=== PATIENT | female | born 1945 | race Caucasian/White ===

== ENCOUNTER 2017-02-03 19:40 | Emergency (ER) | payer MEDICARE, MEDICAID ==
[2017-02-03 20:18] LABS: #Basophils 0.1 thou/uL (0.0-0.2); #Eosinphils 0.6 thou/uL (0.0-0.7); #Lymphocytes 1.9 thou/uL (1.20-3.40); #Monocytes 0.3 thou/uL (0.11-0.59); #Neutrophils 9.9 thou/uL (1.40-6.50); %Basophils 0.7 % (0.0-1.0); %Eosinophils 4.8 % (0.0-10.0); %Monocytes 2.3 % (0.0-10.0); Hematocrit 39.6 % (36.0-47.0); Mean Platelet Volume 7.5 fL (7.4-10.4); Red Blood Cell (RBC) Count 4.42 mill/uL (4.20-5.40); White Blood Cell (WBC) Count 12.8 thou/uL (4.8-10.8)
[2017-02-03 20:40] LABS: ALT (SGPT) 10 U/L (8-55); AST (SGOT) 14 U/L (5-34); Alkaline Phosphatase 142 U/L (40-150); Anion Gap 15 mmol/L (10-20); BUN (Urea Nitrogen) 17 mg/dL (9.8-20.1); Bilirubin, Total 0.2 mg/dL (0.2-1.2); CK (CPK) 109 U/L (29-168); Calc. Creatinine Clearance 0 mL/min (70-130); Calcium 8.9 mg/dL (7.8-10.44); Carbon Dioxide 24 mmol/L (23-31); Chloride 107 mmol/L (98-107); Estimated GFR-MDRD 55; Globulin 3.3 g/dL (2.4-3.5); Protein, Total 7.6 g/dL (6.0-8.3)
--- NOTE | 2017-02-03 20:50 | RAD ---
EXAM: ONE VIEW CHEST 02/03/17 HISTORY: 01/01/17 HISTORY: Dyspnea. FINDINGS: Redemonstration of cervical fusion hardware. Atherosclerosis of the aorta. Normal cardiac silhouette. Pulmonary vessels and hilum are normal. Costophrenic angles are clear. Hy perinflation, without consolidation or mass. No pneumothorax or osseous abnormality. IMPRESSION: 1. Atherosclerosis. 2. COPD. POS: [facility]
[2017-02-03 20:56] LABS: Troponin I 0.059 ng/mL (< 0.028)
== END 2017-02-03 21:48 | disposition home or self-care (01) ==
LOC: ERS 19:40
DX: J44.1 Chronic obstructive pulmonary disease with (acute) exacerbation (principal); I10 Essential (primary) hypertension; E78.5 Hyperlipidemia, unspecified; Z87.891 Personal history of nicotine dependence
CPT/HCPCS: 36415; 71010; 80053; 82550; 82553; 84484; 85025; 93005; 94640; 94760

== ENCOUNTER 2017-05-23 00:10 | Emergency (ER) | payer MEDICARE, MEDICAID ==
[2017-05-23 01:13] LABS: #Basophils 0.1 thou/uL (0.0-0.2); #Eosinphils 0.7 thou/uL (0.0-0.7); #Lymphocytes 1.9 thou/uL (1.20-3.40); #Monocytes 0.3 thou/uL (0.11-0.59); #Neutrophils 10.2 thou/uL (1.40-6.50); %Basophils 0.4 % (0.0-1.0); %Eosinophils 5.1 % (0.0-10.0); %Lymphocytes 14.3 % (21.0-51.0); %Monocytes 2.1 % (0.0-10.0); %Neutrophils 78.2 % (42.0-75.0); Mean Corpuscular HGB CONC 33.2 g/dL (32.0-36.0); Mean Corpuscular Hemoglobin 29.5 pg (27.0-31.0); Mean Corpuscular Volume 89.1 fl (81.0-99.0); Mean Platelet Volume 7.7 fL (7.4-10.4); Platelet Count 279 thou/uL (130-400); RBC Distribution Width 12.1 % (11.5-14.5); Red Blood Cell (RBC) Count 4.07 mill/uL (4.20-5.40)
[2017-05-23 01:24] LABS: ALT (SGPT) 8 U/L (8-55); AST (SGOT) 13 U/L (5-34); Albumin 4.3 g/dL (3.4-4.8); Alkaline Phosphatase 131 U/L (40-150); Anion Gap 14 mmol/L (10-20); BUN (Urea Nitrogen) 21 mg/dL (9.8-20.1); Bilirubin, Total 0.3 mg/dL (0.2-1.2); Calc. Creatinine Clearance 0 mL/min (70-130); Calcium 9.4 mg/dL (7.8-10.44); Carbon Dioxide 25 mmol/L (23-31); Chloride 107 mmol/L (98-107); Estimated GFR-MDRD 52; Glucose 134 mg/dL (83-110); Potassium 3.8 mmol/L (3.5-5.1); Protein, Total 7.3 g/dL (6.0-8.3); Sodium 142 mmol/L (136-145)
[2017-05-23 01:27] LABS: CKMB 2.7 ng/mL (0-6.6)
[2017-05-23] MEDS ORDERED: Albuterol Sulfate 2.5 mg/3 ml Neb ONE (03:15)
--- NOTE | 2017-05-23 09:24 | RAD ---
SINGLE VIEW OF THE CHEST: Comparison: 02-03-17 History: Shortness of breath. FINDINGS: Single view of the chest shows a normal sized cardiomediastinal silhouette. There is no evidence of c onsolidation, mass, or pleural effusion. The bones are unremarkable. IMPRESSION: No evidence of acute cardiopulmonary disease. POS: [facility]
== END 2017-05-23 04:55 | disposition home or self-care (01) ==
LOC: ERS 00:10
DX: J44.1 Chronic obstructive pulmonary disease with (acute) exacerbation (principal); I10 Essential (primary) hypertension; E78.5 Hyperlipidemia, unspecified; Z87.891 Personal history of nicotine dependence; Z79.899 Other long term (current) drug therapy
CPT/HCPCS: 36415; 71045; 80053; 82553; 84484; 85025; 93005; J7611

== ENCOUNTER 2018-04-14 13:07 | Inpatient (IN) | payer MEDICARE, MEDICAID ==
[2018-04-14 13:19] LABS: Actual Bicarbonate (HCO3a) 22.1 mEq/L (22-28); Analyzer IN Cardio ER; Base Excess (BEa) -5.6 mEq/L (-2.0 to +3.0); CO2 Tension 52.1 mmHg (35.0-45.0); Calcium, Ionized 1.17 mmol/L (1.12-1.30); Carboxyhemoglobin (COHb) 0.2 gm% (0.0-3.0); Hemoglobin (Hb) 13.6 g/dL (12.0-16.0); O2 Tension (PaO2) 136.3 mmHg (> 70.0); Potassium - ABG Lab 4.05 mmol/L (3.70-5.30)
[2018-04-14] MEDS ORDERED: Magnesium 2 GM/50 ML BAG (IN WATER) ONE (13:19)
[2018-04-14 13:20] LABS: pH, Arterial 7.25 (7.35-7.45)
[2018-04-14 13:21] LABS: ALV-art Gradient 12.475 (0-20); Puncture Site LRA
[2018-04-14] MEDS ORDERED: Albuterol Sulfate 2.5 mg/0.5 ml Neb ONE ×2 (13:28)
[2018-04-14 13:53] LABS: #Basophils 0.1 thou/uL (0.0-0.2); #Eosinphils 0.8 thou/uL (0.0-0.7); #Monocytes 0.3 thou/uL (0.11-0.59); #Neutrophils 8.4 thou/uL (1.40-6.50); %Basophils 0.4 % (0.0-1.0); %Eosinophils 6.6 % (0.0-10.0); %Lymphocytes 23.7 % (21.0-51.0); %Monocytes 2.4 % (0.0-10.0); %Neutrophils 66.9 % (42.0-75.0); Hemoglobin 13.3 g/dL (12.0-16.0); Mean Corpuscular HGB CONC 31.4 g/dL (32.0-36.0); Mean Corpuscular Hemoglobin 28.2 pg (27.0-31.0); Mean Corpuscular Volume 89.6 fL (78.0-98.0); Mean Platelet Volume 8.3 fL (7.4-10.4); Platelet Count 359 thou/uL (130-400); RBC Distribution Width 12.3 % (11.5-14.5); White Blood Cell (WBC) Count 12.6 thou/uL (4.8-10.8)
[2018-04-14 14:16] LABS: ALT (SGPT) 9 U/L (8-55); AST (SGOT) 18 U/L (5-34); Albumin 4.3 g/dL (3.4-4.8); Alkaline Phosphatase 163 U/L (40-150); Anion Gap 13 mmol/L (10-20); BUN (Urea Nitrogen) 16 mg/dL (9.8-20.1); Bilirubin, Total 0.3 mg/dL (0.2-1.2); Calc. Creatinine Clearance 0 mL/min (70-130); Calcium 9.2 mg/dL (7.8-10.44); Carbon Dioxide 27 mmol/L (23-31); Chloride 106 mmol/L (98-107); Estimated GFR-MDRD 44; Glucose 180 mg/dL (83-110); Potassium 4.4 mmol/L (3.5-5.1); Protein, Total 7.3 g/dL (6.0-8.3); Sodium 142 mmol/L (136-145)
[2018-04-14 14:25] LABS: Actual Bicarbonate (HCO3a) 20.4 mEq/L (22-28); Analyzer IN Cardio ER; Base Excess (BEa) -5.6 mEq/L (-2.0 to +3.0); Hemoglobin (Hb) 13.1 g/dL (12.0-16.0); Potassium - ABG Lab 3.62 mmol/L (3.70-5.30); pH, Arterial 7.31 (7.35-7.45)
[2018-04-14 14:26] LABS: Puncture Site RRA
--- NOTE | 2018-04-14 14:42 | RAD ---
PORTABLE CHEST: DATE: 04/14/2018. PROVIDED CLINICAL HISTORY: Dyspnea. FINDINGS: Comparison 05/23/2017. Cardiac silhouette appears unchanged. No focal consolidation, pleural fluid, or pneumothorax apparent. Cervical spinal hardware again noted. IMPRESSION: No evidence for an acute cardiopulmonary process. POS: [facility]
[2018-04-14] MEDS: Piperacillin/Tazobactam 3.375 GM in Sodium Chloride 0.9% 100 ML IVPB SCH ×2 (20:11→23:09)
[2018-04-14] MEDS: Sodium Chloride 0.9% 1,000 ML IV SCH ×2 (20:11→23:32)
--- NOTE | 2018-04-14 22:08 | HP ---
CHIEF COMPLAINT: Shortness of breath. HISTORY OF PRESENT ILLNESS: The patient is a 72-year-old female, who was brought to the emergency room by EMS after she was found to be in severe respiratory distress. She was placed on a BiPAP and gradually she improved, but emergency room physician even was thinking about intubating her at the first time when she got to the ER. She is getting admitted for further management of her problem. She denies any fever or chills. She denies any significant cough different than what she usually gets on a daily basis. She has COPD with O2 at home 2 L by nasal cannula p.r.n. as needed. She did not have any sick contact. She did not have any travels recently. PAST MEDICAL HISTORY: 1. COPD. 2. Hypertension. 3. Heart problem. She is not sure of what kind of problem she has, but we know that she had some stents placed, so coronary artery disease is the diagnosis. PAST SURGICAL HISTORY: She had carpal tunnel surgery and neck surgery. She had cardiac catheterization done with stents. SOCIAL HISTORY: She used to smoke, quit approximately 7 years ago. She denies any alcohol intake or use any illicit drugs. MEDICATIONS: Please refer to the medications list. REVIEW OF SYSTEMS: All 14 systems were reviewed and the only symptoms which mentioned in HPI are positive. The rest of them are negative. PHYSICAL EXAMINATION: VITAL SIGNS: Her blood pressure is 110/67, pulse is 116, and respiratory rate is 26. HEENT: Head is atraumatic, normocephalic. Eyes are PERRLA. Sclerae are nonicteric. Oral mucosa is somewhat dry. LUNGS: Emphysematous. No wheezing or rales. HEART: S1 and S2, normal. Tachycardic. No S3. No S4. ABDOMEN: Soft, nontender, and nondistended. EXTREMITIES: No clubbing, cyanosis, or edema. Her pulses are somewhat diminished on both tibialis posterior and dorsalis pedis arteries similar bilaterally. NEUROLOGICAL: She is alert and oriented x4. There are no any motor or sensory deficits. Cranial nerves are intact. LABORATORY DATA: Labs showed white count of 12.6, hemoglobin of 13.3, hematocrit 42.2, and platelet count 359,000. ABGs showed a pH of 7.31, pCO2 of 42, pO2 of 78. Her electrolytes are within normal limits. Creatinine 1.2, glucose 180, alkaline phosphatase 163. Troponin 0.041. EKG showed sinus tachycardia. No specific abnormalities. Chest x-ray did not show any infiltrates. This was personally reviewed by me. IMPRESSION: 1. Acute exacerbation of chronic obstructive pulmonary disease with hypoxemia. 2. Hypertension. 3. Hyperlipidemia. 4. Renal insufficiency, not sure whether this is just prerenal. PLAN: For admission to the intensive care unit. Activity, bedrest and bathroom privileges. Condition is guarded. IV normal saline 100 mL/h. Solu-Medrol 40 mg IV push every 6 hours. Albuterol and Atrovent, DuoNebs q.4 hours, levofloxacin 500 mg IV piggyback every 24 hours. She received first dose in the emergency room. She will stay on Zosyn to cover for Pseudomonas IV piggyback every 6 hours as needed. We will continue BiPAP for now. We will check her ABGs later and we will have director speech and hearing on the case. Job ID: [id number]
[2018-04-15 02:13] VITALS: BMI 26.5
[2018-04-15 05:06] LABS: #Basophils 0.1 thou/uL (0.0-0.2); #Lymphocytes 0.7 thou/uL (1.20-3.40); %Basophils 1.2 % (0.0-1.0); %Lymphocytes 10.5 % (21.0-51.0); %Monocytes 0.6 % (0.0-10.0); %Neutrophils 87.6 % (42.0-75.0); Hemoglobin 11.3 g/dL (12.0-16.0); Mean Corpuscular HGB CONC 32.2 g/dL (32.0-36.0); Mean Corpuscular Hemoglobin 28.2 pg (27.0-31.0); Mean Corpuscular Volume 87.6 fL (78.0-98.0); Mean Platelet Volume 8.7 fL (7.4-10.4); Platelet Count 265 thou/uL (130-400); RBC Distribution Width 12.1 % (11.5-14.5); Red Blood Cell (RBC) Count 3.98 mill/uL (4.20-5.40); White Blood Cell (WBC) Count 6.9 thou/uL (4.8-10.8)
[2018-04-15] MEDS: Piperacillin/Tazobactam 3.375 GM in Sodium Chloride 0.9% 100 ML IVPB SCH (05:21)
[2018-04-15 05:29] LABS: Anion Gap 14 mmol/L (10-20); BUN (Urea Nitrogen) 24 mg/dL (9.8-20.1); Calc. Creatinine Clearance 38 mL/min (70-130); Calcium 8.6 mg/dL (7.8-10.44); Carbon Dioxide 22 mmol/L (23-31); Chloride 107 mmol/L (98-107); Estimated GFR-MDRD 36; Glucose 248 mg/dL (83-110); Potassium 3.6 mmol/L (3.5-5.1); Sodium 139 mmol/L (136-145)
[2018-04-15] MEDS: Enoxaparin Sodium 40 MG/0.4 ML SYRINGE SC SCH (08:34)
[2018-04-15] MEDS: Sodium Chloride 0.9% 1,000 ML IV SCH ×3 (08:35→17:51)
--- NOTE | 2018-04-15 10:07 | PDOC.PN ---
- Subjective Encounter Start Date: 04/15/18 Encounter Start Time: 10:05 Subjective: resp distress ressolved, breathing easy - Objective Resuscitation Status - Order Detail: 04/14/18 15:47 Resuscitation Status Routine Resuscitation Status: FULL: Full Resuscitation MAR Reviewed: Yes Vital Signs & Weight: Vital Signs (12 hours) Temp Pulse Resp BP Pulse Ox 04/15/18 07:35 86 16 94 L 04/15/18 04:00 99.6 F 97 18 106/61 93 L 04/15/18 02:17 94 16 98 04/15/18 00:00 98.4 F 104 H 20 109/66 97 04/14/18 22:19 100 20 98 Weight Weight 149 lb 14.629 oz I&O: 04/14/18 04/15/18 04/16/18 06:59 06:59 06:59 Intake Total 1744 Balance 1744 Result Diagrams: 04/15/18 04:01 04/15/18 04:01 Additional Labs: Accuchecks 04/14/18 13:19 POC Glucose 178 H Phys Exam - Physical Examination Neck: no JVD no wheezes, scant post rhonchi, adequate BS Cardiovascular: RRR, no significant murmur Gastrointestinal: soft, positive bowel sounds Musculoskeletal: no edema Dx/Plan (1) Acute respiratory failure with hypoxia and hypercapnia Code(s): J96.01 - ACUTE RESPIRATORY FAILURE WITH HYPOXIA; J96.02 - ACUTE RESPIRATORY FAILURE WITH HYPERCAPNIA Status: Resolved (2) COPD exacerbation Code(s): J44.1 - CHRONIC OBSTRUCTIVE PULMONARY DISEASE W (ACUTE) EXACERBATION Status: Acute (3) CKD (chronic kidney disease) stage 3, GFR 30-59 ml/min Status: Chronic (4) HTN (hypertension) Code(s): I10 - ESSENTIAL (PRIMARY) HYPERTENSION Status: Chronic Qualifiers: Hypertension type: essential hypertension Qualified Code(s): I10 - Essential (primary) hypertension - Plan cont nebs, deescalate steroids, antibx -: selected home meds * .
[2018-04-15] MEDS ORDERED: Acetaminophen 325 MG TAB PO PRN (13:39)
[2018-04-15] MEDS: Budesonide 0.5 MG/2 ML NEB NEB SCH (18:54)
[2018-04-15] MEDS: Mometasone/Formoterol 120 PUFF INHALER INH SCH (18:55)
[2018-04-15] MEDS ORDERED: guaiFENesin ER 600 MG TAB PO PRN (21:00)
[2018-04-16 04:55] LABS: #Monocytes 0.3 thou/uL (0.11-0.59); #Neutrophils 16.2 thou/uL (1.40-6.50); %Basophils 0.2 % (0.0-1.0); %Lymphocytes 5.6 % (21.0-51.0); %Monocytes 1.8 % (0.0-10.0); %Neutrophils 92.3 % (42.0-75.0); Hemoglobin 10.7 g/dL (12.0-16.0); Mean Corpuscular HGB CONC 32.7 g/dL (32.0-36.0); Mean Corpuscular Hemoglobin 28.8 pg (27.0-31.0); Mean Corpuscular Volume 88.1 fL (78.0-98.0); Mean Platelet Volume 8.7 fL (7.4-10.4); Platelet Count 298 thou/uL (130-400); RBC Distribution Width 12.7 % (11.5-14.5); Red Blood Cell (RBC) Count 3.73 mill/uL (4.20-5.40); White Blood Cell (WBC) Count 17.6 thou/uL (4.8-10.8)
[2018-04-16 05:06] LABS: Anion Gap 9 mmol/L (10-20); BUN (Urea Nitrogen) 23 mg/dL (9.8-20.1); Calc. Creatinine Clearance 56 mL/min (70-130); Calcium 8.3 mg/dL (7.8-10.44); Carbon Dioxide 24 mmol/L (23-31); Chloride 114 mmol/L (98-107); Estimated GFR-MDRD 57; Glucose 196 mg/dL (83-110); Potassium 3.9 mmol/L (3.5-5.1); Sodium 143 mmol/L (136-145)
[2018-04-16] MEDS: Sodium Chloride 0.9% 1,000 ML IV SCH (05:35)
[2018-04-16] MEDS: Mometasone/Formoterol 120 PUFF INHALER INH SCH (07:25)
[2018-04-16] MEDS: Budesonide 0.5 MG/2 ML NEB NEB SCH (07:25)
[2018-04-16 07:41] VITALS: BP 141/62; TEMP 97.6
[2018-04-16] MEDS: Enoxaparin Sodium 40 MG/0.4 ML SYRINGE SC SCH (07:46)
[2018-04-16] MEDS ORDERED: Azithromycin 250 MG TAB PO SCH (09:00)
[2018-04-16] MEDS ORDERED: Potassium Chloride 10 MEQ TAB PO SCH (09:00)
[2018-04-16] MEDS ORDERED: Spiriva 18 MCG CAP (Box of 5 Caps) INH SCH (09:00)
[2018-04-16] MEDS ORDERED: Roflumilast [Daliresp] 500 MCG PO SCH (09:00)
[2018-04-16] MEDS ORDERED: Atorvastatin Calcium 40 MG TAB PO SCH (09:00)
[2018-04-16] MEDS ORDERED: Hydrochlorothiazide 25 MG TAB PO SCH (09:00)
--- NOTE | 2018-04-16 10:45 | DIS ---
DATE OF ADMISSION: 04/14/2018 DATE OF DISCHARGE: 04/16/2018 TRANSFER OF CARE PRIMARY CARE PROVIDER: Dr. Trista Martinez. FINAL DIAGNOSES: 1. Acute respiratory failure with hypoxia. 2. Chronic obstructive pulmonary disease exacerbation. 3. Hypertension. 4. Coronary artery disease. 5. Chronic kidney disease, stage 3. DISCHARGE MEDICINES: Usual medicines, plus: 1. Medrol Dosepak start today. 2. Pulmicort 0.5 neb b.i.d. 3. Symbicort two puffs b.i.d. 4. Potassium chloride 10 mEq a day. 5. Daliresp 500 mcg p.o. daily. 6. Spiriva HandiHaler one puff daily. 7. Albuterol sulfate two puffs q.4 hours p.r.n. shortness of breath. 8. Aspirin 81 mg a day. 9. Atorvastatin 80 mg a day. 10. Metoprolol 25 mg a day. 11. Hydrochlorothiazide 25 mg a day. 12. DuoNeb 3 mL q.i.d. ALLERGIES: CODEINE, ERYTHROMYCIN, AND TRAMADOL. DIET: Heart healthy. PENDING AT THE TIME OF DISCHARGE: Nothing. CODE STATUS: Full. HOSPITAL COURSE: The patient was admitted to the hospital with acute exacerbation of COPD, acute respiratory failure with hypoxia. She was placed in IMCU, started on steroids and antibiotics. She was initially thought to need BiPAP, but she got to the unit without BiPAP. Her steroids, etc., were de-escalated rapidly. Antibiotics were stopped. Chest x-ray was unrevealing for acute process. LABORATORY DATA: Comprehensive metabolic profile showed chronic kidney disease, stage 3, otherwise unremarkable. CBC showed a mild elevation of white count 12.6, which came down to 6.9, but went up to 17.6 with IV steroids. Hemoglobin was 13.3, platelet count was 259,000. Today, she has been totally clear for 24 hours. She had no respiratory distress on room air. Feels well. She is being discharged on the aforementioned medicines. CONSULTATIONS: None. PROCEDURES: None. FOLLOWUP: She has been asked to see Dr. Weston in one week for followup. Job ID: [id number]
--- NOTE | 2018-04-18 14:14 | EKG ---
Test Reason : SOB Blood Pressure : / mmHG Vent. Rate : 129 BPM Atrial Rate : 129 BPM P-R Int : 130 ms QRS Dur : 092 ms QT Int : 322 ms P-R-T Axes : 083 077 081 degrees QTc Int : 471 ms Sinus tachycardia Low voltage QRS Confirmed by JOSE ENRIQUE COLIN DO ([id number]), slot editor JENNY FRIEDMAN ([id number]) on 04/18/2018 2:14:15 PM Referred By: Confirmed By:JOSE ENRIQUE COLIN DO
== END 2018-04-16 13:40 | disposition home or self-care (01) | DRG 189 ==
LOC: ERS 13:07 → IMCU/EMU 15:30
PROVIDERS: ADMIT Internal Medicine; ATTEND Internal Medicine
DX: J96.01 Acute respiratory failure with hypoxia (principal); J44.1 Chronic obstructive pulmonary disease with (acute) exacerbation; I12.9 Hypertensive chronic kidney disease with stage 1 through stage 4 chronic kidney disease, or unspecified chronic kidney disease; N18.3 Chronic kidney disease, stage 3 (moderate); I25.10 Atherosclerotic heart disease of native coronary artery without angina pectoris; Z79.82 Long term (current) use of aspirin; Z95.5 Presence of coronary angioplasty implant and graft; E78.5 Hyperlipidemia, unspecified
CPT/HCPCS: 36415; 36416; 71045; 80048; 80053; 82553; 82805; 84484; 85025; 87804; 93005; 94640; 94660; 96365; 96366; G8978-GP-CI; G8979-GP-CI; G8980-GP-CI; J1650; J1956; J2543; J2920; J7050; J7611; J7620; J7626

== ENCOUNTER 2018-04-17 05:10 | Inpatient (IN) | payer MEDICARE, MEDICAID ==
[2018-04-17] MEDS ORDERED: Albuterol Sulfate 2.5 mg/3 ml Neb ONE (05:33)
[2018-04-17 05:35] LABS: #Lymphocytes 2.6 thou/uL (1.20-3.40); #Monocytes 0.6 thou/uL (0.11-0.59); %Eosinophils 0.1 % (0.0-10.0); %Lymphocytes 16.2 % (21.0-51.0); %Monocytes 3.4 % (0.0-10.0); %Neutrophils 80.3 % (42.0-75.0); Mean Corpuscular HGB CONC 31.7 g/dL (32.0-36.0); Mean Corpuscular Hemoglobin 28.2 pg (27.0-31.0); Mean Corpuscular Volume 88.9 fL (78.0-98.0); Mean Platelet Volume 8.1 fL (7.4-10.4); Platelet Count 332 thou/uL (130-400); RBC Distribution Width 12.7 % (11.5-14.5); White Blood Cell (WBC) Count 16.1 thou/uL (4.8-10.8)
[2018-04-17 05:42] LABS: Actual Bicarbonate (HCO3a) 22.2 mEq/L (22-28); Analyzer IN Cardio ER; Base Excess (BEa) -3.6 mEq/L (-2.0 to +3.0); CO2 Tension 43.3 mmHg (35.0-45.0); Calcium, Ionized 1.18 mmol/L (1.12-1.30); Carboxyhemoglobin (COHb) 0.3 gm% (0.0-3.0); Hemoglobin (Hb) 11.6 g/dL (12.0-16.0); Potassium - ABG Lab 3.55 mmol/L (3.70-5.30); pH, Arterial 7.33 (7.35-7.45)
[2018-04-17 05:44] LABS: ALV-art Gradient 114.375 (0-20); Puncture Site RBA
[2018-04-17 05:55] LABS: ALT (SGPT) 45 U/L (8-55); AST (SGOT) 48 U/L (5-34); Albumin 3.9 g/dL (3.4-4.8); Alkaline Phosphatase 115 U/L (40-150); Anion Gap 12 mmol/L (10-20); BUN (Urea Nitrogen) 24 mg/dL (9.8-20.1); Bilirubin, Total 0.3 mg/dL (0.2-1.2); Calc. Creatinine Clearance 0 mL/min (70-130); Calcium 7.7 mg/dL (7.8-10.44); Carbon Dioxide 22 mmol/L (23-31); Chloride 112 mmol/L (98-107); Estimated GFR-MDRD 57; Globulin 2.5 g/dL (2.4-3.5); Glucose 128 mg/dL (83-110); Potassium 3.8 mmol/L (3.5-5.1); Protein, Total 6.4 g/dL (6.0-8.3); Sodium 142 mmol/L (136-145)
[2018-04-17] MEDS ORDERED: Enoxaparin Sodium 60 MG/0.6 ML SYRINGE ONE (06:55)
--- NOTE | 2018-04-17 08:30 | CT ---
PRELIMINARY REPORT/[facility]/EMERGENTY AFTER-HOURS PROCEDURE CT Angiography Chest With Contrast EXAM DATE/TIME: 04/17/2018 6:27 AM CLINICAL HISTORY: 72 years old, female; Signs and symptoms; Dyspnea; Additional info: Additional history obtained from ems, f72 with HX of copd presents to ed via ems with C/O dyspnea associated with coughing and wheezin g. Per ems PT was 95% on ra when they arrived on scene and states PT was tachy in 130s which has now improved to 115 and 100% on 3rd duoneb TECHNIQUE: Axial computed tomographic angiography images of the chest with intravenous contrast using CT angiogr aphy protocol. MIP reconstructed images were created and reviewed. CONTRAST: 60 ml of isovue administered intravenously. COMPARISON: No relevant prior studies available. FINDINGS: Pulmonary arteries: Normal. No pulmonary emboli. Aorta: Normal. No aortic aneurysm. No aortic dissection. Lungs: There is a small amount of streaky consolidation in both posterior costophrenic angles. No oth er pulmonary infiltrate or consolidation. No pulmonary nodules or masses. There is moderate to modera tely severe emphysema. Pleural space: Normal. No pneumothorax. No pleural effusion. Heart: Normal. No cardiomegaly. No pericardial effusion. Lymph nodes: Unremarkable. No enlarged lymph nodes. Bones/joints: Unremarkable. No acute fracture. Soft tissues: Unremarkable. IMPRESSION: 1. Small amount consolidation in the costophrenic angles may represent atelectasis or pneumonia. 2. No other acute changes in the chest. No evidence of pulmonary embolus. 3. Moderate to moderately severe emphysema. Thank you for allowing us to participate in the care of your patient. Dictated and Authenticated by: Syed Perez MD 04/17/2018 7:24 AM Central Time ([place] & [place]) FINAL REPORT EMERGENT AFTER HOURS CT ANGIOGRAM THORAX WITH IV CONTRAST AND 3D RECONSTRUCTIONS: DATE: 04/17/2018. HISTORY: Dyspnea associated with coughing and wheezing. IMPRESSION: 1. No evidence of a pulmonary embolus. 2. Vascular calcifications in the coronary arteries and thoracic aorta. The thoracic spine is cristopher l in caliber without evidence of an aortic dissection. 3. Emphysematous changes within the lungs bilaterally. 4. Patchy densities in posterior aspects of each lung base probably related to atelectasis. 5. Tiny subpleural less than 3 mm nodular density left lung base. 6. Findings are in agreement with the preliminary report by [facility]. POS: [facility]
--- NOTE | 2018-04-17 08:44 | RAD ---
SINGLE VIEW OF THE CHEST: COMPARISON: 04/14/2018. HISTORY: Difficulty breathing with coughing and wheezing. FINDINGS: A single view of the chest shows a normal-size cardiomediastinal silhouette with atherosclerotic calc ifications in the aorta. There is no evidence of consolidation, mass, or pleural effusion. Hardware is seen in the cervical spine. IMPRESSION: No evidence of acute cardiopulmonary disease. POS: [facility]
[2018-04-17 08:59] LABS: Critical Call Chem Troponin I RESULT DECREASING; Troponin I 0.505 ng/mL (< 0.028)
[2018-04-17] MEDS ORDERED: Iopamidol 370 76% 50 ML VIAL FS ONE (09:48)
[2018-04-17] MEDS ORDERED: Acetaminophen 325 MG TAB PO PRN (10:32)
[2018-04-17] MEDS ORDERED: Ondansetron ODT 4 MG TAB PO PRN (10:32)
[2018-04-17] MEDS ORDERED: Ondansetron PF 4 MG/2 ML Vial IVP PRN (10:32)
[2018-04-17] MEDS ORDERED: Albuterol Sulfate 2.5 mg/3 ml Neb NEB PRN (10:32)
[2018-04-17] MEDS ORDERED: Acetaminophen 650 MG Suppository PR PRN (10:32)
[2018-04-17] MEDS ORDERED: Famotidine 20 MG TAB PO SCH (12:15)
[2018-04-17] MEDS ORDERED: guaiFENesin ER 600 MG TAB PO SCH (13:00)
--- NOTE | 2018-04-17 14:28 | HP ---
PRIMARY CARE PHYSICIAN: Dr. Weston. CHIEF COMPLAINT: Shortness of breath. HISTORY OF PRESENT ILLNESS: Ms. Lopez is a pleasant 72-year-old female, who was recently admitted here from 04/14/2018 to 04/16/2018 for acute exacerbation of COPD. She was sent home by Dr. Angel yesterday. Once getting home, she developed a coughing paroxysm and became short of breath and tachycardic. She was brought back to the Emergency Department for evaluation last evening. There, she was found to be 95% on room air and had a heart rate of 130. We were subsequently called to readmit. She was accepted by the financial officer and held overnight and is an admission for this morning. Currently, she is breathing better. Still having some audible wheezing and prolonged expiration and cough is nonproductive. She does have some rattling in her chest. She has no fevers or chills. No chest pain. No nausea, vomiting, diarrhea, or constipation. PAST MEDICAL HISTORY: Please see notes dictated 04/14/2018. PAST SURGICAL HISTORY: Please see notes dictated 04/14/2018. MEDICATIONS: Please see notes dictated 04/14/2018. ALLERGIES: PLEASE SEE NOTES DICTATED 04/14/2018. FAMILY HISTORY: Please see notes dictated 04/14/2018. SOCIAL HISTORY: Please see notes dictated 04/14/2018. REVIEW OF SYSTEMS: All systems reviewed and negative except as stated in the HPI. PHYSICAL EXAMINATION: VITAL SIGNS: Temperature on my evaluation, the patient is afebrile. Pulse 104, blood pressure 159/73, respiratory rate 20, and saturating 98% on 2 L nasal cannula, currently 100% on room air. GENERAL: She is awake. She is alert. She is oriented x3. Elderly white female, appears to be in no acute distress, but appears to be in mild respiratory discomfort. HEENT: Normocephalic and atraumatic. Pupils equal, round, and reactive to light bilaterally. Mucous membrane moist. No visible lesions. No thrush. NECK: Supple. There is no lymphadenopathy. No JVD. No thyromegaly. Normal carotid upstroke. There are no bruits. LUNGS: Clear. She has slightly prolonged expiratory phase and high-pitched end-expiratory wheezing at the bases. CARDIOVASCULAR: She is tachycardic, but regular. Normal S1 and S2. No S3 or S4. ABDOMEN: Obese. It is nontender and nondistended. No masses or organomegaly. EXTREMITIES: No cyanosis. No clubbing. With trace pedal edema. SKIN: Warm, moist, and well perfused. There are no rash or lesions. MUSCULOSKELETAL: Normal to inspection. Large joints appear normal. There is no evidence of inflammation. No palpable effusion. NEUROLOGIC: Cranial nerves 2 through 12 grossly intact. She has no focal deficits. Normal speech pattern. LABORATORY DATA: Sodium is 142, potassium 3.8, chloride 112, bicarb 22, BUN 24, creatinine 0.96, glucose 128, calcium 7.7. Liver function within normal limits. CBC showed white count of 16.1 with a slight granulocytosis, hemoglobin 11.0, hematocrit 34.6, platelet count is 332,000. CK-MB was 9.0, troponin I 0.560. BNP was 1157.6. ABG was normal. D-dimer was minimally elevated at 0.86. CT angiogram was negative for pulmonary embolus and negative for pulmonary edema. It did show emphysematous changes. ASSESSMENT AND PLAN: 1. Acute exacerbation of chronic obstructive pulmonary disease. The patient had improved, but does not worsen. We will put her back on IV steroids, antibiotics, and scheduled nebulizer treatments. We will treat her aggressively until she normalizes her inspiratory and expiratory at times, and we will discuss discharge at that point. 2. Coughing paroxysms, place the patient on Mucinex and Tessalon. 3. Hypertension, essential. Continue home medications. 4. Hyperlipidemia, on Zetia. We will continue. 5. Chronic diastolic congestive heart failure. The patient is on Lasix daily, which we will continue. She has an elevated BNP likely secondary to her lung disease. Job ID: [id number]
[2018-04-17 16:25] VITALS: BMI 28.3
[2018-04-17] MEDS ORDERED: Sodium Chloride 0.9% 10 ML ONE ×2 (20:27→23:25)
[2018-04-17] MEDS: guaiFENesin ER 600 MG TAB PO SCH (20:58)
[2018-04-17] MEDS: Famotidine 20 MG TAB PO SCH (20:58)
[2018-04-18 05:58] LABS: #Lymphocytes 0.8 thou/uL (1.20-3.40); #Monocytes 0.2 thou/uL (0.11-0.59); #Neutrophils 8.3 thou/uL (1.40-6.50); %Basophils 0.3 % (0.0-1.0); %Eosinophils 0.2 % (0.0-10.0); %Lymphocytes 8.3 % (21.0-51.0); %Monocytes 1.7 % (0.0-10.0); %Neutrophils 89.5 % (42.0-75.0); Hemoglobin 11.2 g/dL (12.0-16.0); Mean Corpuscular HGB CONC 32.1 g/dL (32.0-36.0); Mean Corpuscular Hemoglobin 28.5 pg (27.0-31.0); Mean Corpuscular Volume 88.7 fL (78.0-98.0); Mean Platelet Volume 8.5 fL (7.4-10.4); Platelet Count 293 thou/uL (130-400); RBC Distribution Width 12.8 % (11.5-14.5); Red Blood Cell (RBC) Count 3.91 mill/uL (4.20-5.40); White Blood Cell (WBC) Count 9.3 thou/uL (4.8-10.8)
[2018-04-18 06:09] LABS: Anion Gap 13 mmol/L (10-20); BUN (Urea Nitrogen) 20 mg/dL (9.8-20.1); Calc. Creatinine Clearance 57 mL/min (70-130); Calcium 8.7 mg/dL (7.8-10.44); Carbon Dioxide 24 mmol/L (23-31); Chloride 108 mmol/L (98-107); Estimated GFR-MDRD 54; Glucose 177 mg/dL (83-110); Magnesium 2.5 mg/dL (1.6-2.6); Potassium 4.5 mmol/L (3.5-5.1); Sodium 140 mmol/L (136-145)
[2018-04-18] MEDS: Enoxaparin Sodium 40 MG/0.4 ML SYRINGE SC SCH (08:47)
[2018-04-18] MEDS: guaiFENesin ER 600 MG TAB PO SCH ×2 (08:47→20:54)
[2018-04-18] MEDS: Famotidine 20 MG TAB PO SCH ×2 (08:47→20:54)
--- NOTE | 2018-04-18 13:04 | EKG ---
Test Reason : DYSPNEA Blood Pressure : / mmHG Vent. Rate : 118 BPM Atrial Rate : 118 BPM P-R Int : 130 ms QRS Dur : 096 ms QT Int : 298 ms P-R-T Axes : 082 096 262 degrees QTc Int : 417 ms Sinus tachycardia Possible Left atrial enlargement Rightward axis Nonspecific ST and T wave abnormality Abnormal ECG Confirmed by KIRA CALL ([id number]), art editor JENNY FRIEDMAN ([id number]) on 04/18/2018 1:04:05 PM Referred By: Confirmed By:KIRA CALL
--- NOTE | 2018-04-18 13:23 | PQF ---
CLINICAL DOCUMENTATION IMPROVEMENT CLARIFICATION FORM: ICD-10 Updated PLEASE DO AN ADDENDUM TO THE PROGRESS NOTE WITH ANY DOCUMENTATION UPDATES OR ADDITIONS AND CARRY THROUGH TO DC SUMMARY. THANK YOU. DATE: 04/18/18 ATTN : DR. FRAGA Please exercise your independent, professional judgment in responding to the clarification form. Clinical indicators are provided on the bottom of this form for your review Please check appropriate box(s): [ ] Acute Respiratory Failure: [ ] with Hypoxia[ ] with Hypercapnia [ ] Acute On Chronic Respiratory Failure: [ ] with Hypoxia [ ] with Hypercapnia [ ] Acute Respiratory Failure due to: (etiology) [ ] ARDS (Acute Respiratory Distress Syndrome) [ ] Chronic Respiratory Failure only [ ] with Hypoxia [ ] with Hypercapnia [ ] Hypoxia [ ] Other diagnosis [ ] Unable to determine In addition, please specify: Present on Admission (POA): [ ] Yes [ ] No [ ] Unable to determine For continuity of documentation, please document condition throughout progress notes and discharge summary. Thank You. CLINICAL INDICATORS - SIGNS / SYMPTOMS / LABS ER NOTE: "WHEEZING PRESENT, DIFFUSELY" "PT DID HAVE HOUR LONG BREATHING TREATMENT" NURSES NOTE 04/18: "PT STATES VERY SHORT OF BREATH. O2 CHECKED 89% ON RA. BREATHING LABORED/SOB. TACHYPNEIC. WHEEZING." NURSING ASSESSMENT 04/17: "RESPIRATORY ASSESSMENT: UNABLE TO LIE FLAT/SHORTNESS OF BREATH WITH EXERTION." ABG PH 7.33 ABG PO2 188 PULSE 128 RR 26 RISKS: COPD EXACERBATION RECENT ADMISSION FOR COPD EXACERBATION TREATMENT: SUPPLEMENTAL OXYGEN VIA FACE MASK IN ER ABGS METHYLPREDNISOLONE (04/17-PRESENT) IPRATROPIUM BROMIDE NEB (ER) ALBUTEROL NEBS (04/17-PRESENT) TELEMETRY MONITORING (This form is maintained as a part of the permanent medical record) 2014 [employer]. All Rights Reserved ROBERTA [email or web address] Office: [phone] [facility]ITAL[facility]
[2018-04-18] MEDS ORDERED: PROVENTIL INHALER 6.7 G (200 INHALATIONS) INH PRN (18:43)
[2018-04-19] MEDS: Budesonide 0.5 MG/2 ML NEB NEB SCH ×2 (06:23→18:36)
[2018-04-19] MEDS: Arformoterol 15 MCG/2 ML NEB NEB SCH ×2 (06:45→18:36)
[2018-04-19] MEDS: DALIRESP 500 MCG PO SCH ×2 (08:40→12:37)
[2018-04-19] MEDS ORDERED: Lisinopril 5 MG TAB PO SCH (09:00)
[2018-04-19] MEDS ORDERED: DALIRESP 500 MCG PO SCH ×2 (10:15→21:00)
[2018-04-19] MEDS: Enoxaparin Sodium 40 MG/0.4 ML SYRINGE SC SCH (10:50)
[2018-04-19] MEDS: Ezetimibe 10 MG TAB PO SCH (10:50)
[2018-04-19] MEDS: guaiFENesin ER 600 MG TAB PO SCH ×2 (10:51→20:02)
[2018-04-19] MEDS: Famotidine 20 MG TAB PO SCH ×2 (10:52→20:02)
[2018-04-19] MEDS: Furosemide 20 MG TAB PO SCH (10:52)
[2018-04-19] MEDS: Potassium Chloride 10 MEQ TAB PO SCH (10:52)
[2018-04-19 12:44] LABS: #Basophils 0.1 thou/uL (0.0-0.2); #Lymphocytes 0.7 thou/uL (1.20-3.40); #Monocytes 0.4 thou/uL (0.11-0.59); %Basophils 0.6 % (0.0-1.0); %Eosinophils 0.3 % (0.0-10.0); %Lymphocytes 5.4 % (21.0-51.0); %Monocytes 3.4 % (0.0-10.0); %Neutrophils 90.3 % (42.0-75.0); Hemoglobin 12.4 g/dL (12.0-16.0); Mean Corpuscular HGB CONC 31.3 g/dL (32.0-36.0); Mean Corpuscular Hemoglobin 27.7 pg (27.0-31.0); Mean Corpuscular Volume 88.4 fL (78.0-98.0); Mean Platelet Volume 8.4 fL (7.4-10.4); Platelet Count 416 thou/uL (130-400); RBC Distribution Width 13.2 % (11.5-14.5); Red Blood Cell (RBC) Count 4.49 mill/uL (4.20-5.40); White Blood Cell (WBC) Count 12.2 thou/uL (4.8-10.8)
[2018-04-19 13:09] LABS: Anion Gap 13 mmol/L (10-20); BUN (Urea Nitrogen) 26 mg/dL (9.8-20.1); Calc. Creatinine Clearance 46 mL/min (70-130); Calcium 8.8 mg/dL (7.8-10.44); Carbon Dioxide 25 mmol/L (23-31); Chloride 106 mmol/L (98-107); Estimated GFR-MDRD 42; Glucose 192 mg/dL (83-110); Magnesium 2.4 mg/dL (1.6-2.6); Potassium 4.4 mmol/L (3.5-5.1); Sodium 140 mmol/L (136-145)
--- NOTE | 2018-04-19 15:33 | PDOC.PN ---
- Subjective Encounter Start Date: 04/18/18 Encounter Start Time: 11:45 follow up for acute exacerbation of COPD, acute on chronic hypercapneic respiratory fialure, acut red chornic heart faile and tachycardia HR still elevated, breathing improved. cough nonproductive No f/c, no N/V/D/C, no CP. still with SANTIAGO and orthopnea All systems reviewed and neg x as above - Objective Resuscitation Status - Order Detail: 04/17/18 08:10 Resuscitation Status Routine Resuscitation Status: FULL: Full Resuscitation MAR Reviewed: Yes Vital Signs & Weight: Vital Signs (12 hours) Temp Pulse Resp BP Pulse Ox 04/19/18 14:47 80 16 04/19/18 10:40 117 H 16 04/19/18 08:00 94 L 04/19/18 07:10 98.6 F 113 H 20 164/79 H 94 L 04/19/18 07:09 110 H 24 H 164/79 H 95 04/19/18 07:03 132 H 26 H 04/19/18 07:00 150 H 26 H 205/109 H 84 L 04/19/18 06:45 103 H 16 04/19/18 06:26 94 L 04/19/18 06:23 103 H 16 Weight Weight 159 lb 12.8 oz I&O: 04/18/18 04/19/18 04/20/18 06:59 06:59 06:59 Intake Total 450 182 Output Total 1500 200 Balance -0 18 Result Diagrams: 04/19/18 12:23 04/19/18 12:23 Phys Exam - Physical Examination Constitutional: NAD HEENT: PERRLA, moist MMs, sclera anicteric, oral pharynx no lesions Neck: no nodes, no JVD, supple, full ROM Respiratory: no wheezing, no rales, no rhonchi, clear to auscultation bilateral Cardiovascular: RRR, no significant murmur, no rub Gastrointestinal: soft, non-tender, no distention, positive bowel sounds Musculoskeletal: pulses present, edema present Neurological: non-focal, normal sensation, moves all 4 limbs Lymphatic: no nodes Psychiatric: normal affect, A&O x 3 Skin: no rash, normal turgor, cap refill <2 seconds Dx/Plan (1) CKD (chronic kidney disease) stage 3, GFR 30-59 ml/min Status: Chronic (2) COPD (chronic obstructive pulmonary disease) Status: Chronic (3) HTN (hypertension) Code(s): I10 - ESSENTIAL (PRIMARY) HYPERTENSION Status: Chronic Qualifiers: Hypertension type: essential hypertension Qualified Code(s): I10 - Essential (primary) hypertension (4) Acute respiratory failure with hypoxia and hypercapnia Code(s): J96.01 - ACUTE RESPIRATORY FAILURE WITH HYPOXIA; J96.02 - ACUTE RESPIRATORY FAILURE WITH HYPERCAPNIA Status: Acute Comment: nebs, steroids, mucinex, wean O2 (5) COPD exacerbation Code(s): J44.1 - CHRONIC OBSTRUCTIVE PULMONARY DISEASE W (ACUTE) EXACERBATION Status: Acute - Plan cont current plan of care, plan discussed w/ family, continue antibiotics, respiratory therapy * .
--- NOTE | 2018-04-19 15:41 | PDOC.PN ---
- Subjective Encounter Start Date: 04/19/18 Encounter Start Time: 11:30 ollow up for acute exacerbation of COPD, acute on chronic hypercapneic respiratory failure, acute on chronic heart failore and tachycardia HR still elevated, breathing improved. cough nonproductive. Family requesting Dr Daniels be consulted No f/c, no N/V/D/C, no CP. still with SANTIAGO and orthopnea All systems reviewed and neg x as above - Objective Resuscitation Status - Order Detail: 04/17/18 08:10 Resuscitation Status Routine Resuscitation Status: FULL: Full Resuscitation MAR Reviewed: Yes Vital Signs & Weight: Vital Signs (12 hours) Temp Pulse Resp BP Pulse Ox 04/19/18 14:47 80 16 04/19/18 10:40 117 H 16 04/19/18 08:00 94 L 04/19/18 07:10 98.6 F 113 H 20 164/79 H 94 L 04/19/18 07:09 110 H 24 H 164/79 H 95 04/19/18 07:03 132 H 26 H 04/19/18 07:00 150 H 26 H 205/109 H 84 L 04/19/18 06:45 103 H 16 04/19/18 06:26 94 L 04/19/18 06:23 103 H 16 Weight Weight 159 lb 12.8 oz I&O: 04/18/18 04/19/18 04/20/18 06:59 06:59 06:59 Intake Total 450 182 Output Total 1500 200 Balance -0 18 Result Diagrams: 04/19/18 12:23 04/19/18 12:23 Phys Exam - Physical Examination Constitutional: NAD HEENT: PERRLA, moist MMs, sclera anicteric, oral pharynx no lesions Neck: no nodes, no JVD, supple, full ROM Respiratory: no wheezing, no rales, no rhonchi, clear to auscultation bilateral Cardiovascular: RRR, no significant murmur, no rub Gastrointestinal: soft, non-tender, no distention, positive bowel sounds Musculoskeletal: edema present Neurological: non-focal, normal sensation, moves all 4 limbs Lymphatic: no nodes Psychiatric: normal affect, A&O x 3 Skin: no rash, normal turgor, cap refill <2 seconds Dx/Plan (1) CKD (chronic kidney disease) stage 3, GFR 30-59 ml/min Status: Chronic (2) COPD (chronic obstructive pulmonary disease) Status: Chronic Qualifiers: COPD type: unspecified COPD Qualified Code(s): J44.9 - Chronic obstructive pulmonary disease, unspecified (3) HTN (hypertension) Code(s): I10 - ESSENTIAL (PRIMARY) HYPERTENSION Status: Chronic Qualifiers: Hypertension type: essential hypertension Qualified Code(s): I10 - Essential (primary) hypertension (4) Acute respiratory failure with hypoxia and hypercapnia Code(s): J96.01 - ACUTE RESPIRATORY FAILURE WITH HYPOXIA; J96.02 - ACUTE RESPIRATORY FAILURE WITH HYPERCAPNIA Status: Acute Comment: nebs, steroids, mucinex, wean O2 (5) COPD exacerbation Code(s): J44.1 - CHRONIC OBSTRUCTIVE PULMONARY DISEASE W (ACUTE) EXACERBATION Status: Acute - Plan cont current plan of care, plan discussed w/ family, PT/OT, respiratory therapy * .
[2018-04-19] MEDS: Atorvastatin Calcium 40 MG TAB PO SCH (20:01)
--- NOTE | 2018-04-20 04:54 | CON ---
DATE OF CONSULTATION: HISTORY OF PRESENT ILLNESS: The patient is a 72-year-old woman, who presents with increasing dyspnea. The patient has a previous history of cardiomyopathy, she underwent a cardiac catheterization in 2000, which revealed moderately decreased left ventricular systolic function with mild CAD, the patient has been on medical therapy. The patient also has severe COPD. The patient most recently presented with the COPD exacerbation. She had stopped taking many of her medications, The patient developed increasing dyspnea and was hospitalized overnight and released. The patient presents once again with increasing dyspnea. She denied having any chest discomfort. The patient was noted to have an elevated troponin level and admitted for further evaluation. PAST MEDICAL HISTORY: 1. Coronary artery disease. 2. Cardiomyopathy. 3. Hypertension. 4. Dyslipidemia. PAST SURGICAL HISTORY: Carpal tunnel surgery and neck surgery. SOCIAL HISTORY: Former smoker. MEDICATIONS: See nursing list. REVIEW OF SYSTEMS: Noticeable for increasing cough. PHYSICAL EXAMINATION: GENERAL: This is an elderly woman, in mild distress. VITAL SIGNS: Blood pressure 160/80. NECK: Showed no jugular venous distention. LUNGS: Have decreased breath sounds, bilateral. HEART: Regular rate and rhythm. Normal S1 and S2. No murmurs. ABDOMEN: Nondistended. EXTREMITIES: Showed trace edema. VASCULAR: Radial pulses are 2+. LABORATORY DATA: White blood cell count is 9.3, hemoglobin 11.2, hematocrit 34.7, and platelets are 293. Sodium 140, potassium 4.5, chloride 108, bicarbonate 24 , BUN 20, creatinine is 1.0. Troponin was 0.5. EKG revealed her to have sinus tachycardia with a nonspecific ST-T wave abnormality. Chest x-ray revealed normal heart size with clear lung marie. IMPRESSION: 1. Chronic obstructive pulmonary disease exacerbation. 2. Elevated troponin level probably secondary to demand ischemia. 3. Hypertension, poorly controlled. 4. History of coronary artery disease. 5. History of cardiomyopathy. 6. Dyslipidemia. 7. History of noncompliance. This patient presented with chronic obstructive pulmonary disease exacerbation. She was noted to have an elevated troponin level. The patient is on a beta- donny therapy. We would recommend trying to slowly decrease the dose of this medication since she has severe chronic obstructive pulmonary disease. We will also check the patient's echocardiogram. The patient will be continued on aspirin and Lipitor. Further recommendation will follow. Job ID: [id number] [facility]
[2018-04-20 05:01] LABS: #Lymphocytes 1.2 thou/uL (1.20-3.40); #Monocytes 0.4 thou/uL (0.11-0.59); #Neutrophils 13.4 thou/uL (1.40-6.50); %Basophils 0.1 % (0.0-1.0); %Eosinophils 0.3 % (0.0-10.0); %Lymphocytes 7.6 % (21.0-51.0); %Monocytes 2.9 % (0.0-10.0); Hemoglobin 13.3 g/dL (12.0-16.0); Mean Corpuscular HGB CONC 31.2 g/dL (32.0-36.0); Mean Corpuscular Hemoglobin 27.8 pg (27.0-31.0); Mean Corpuscular Volume 89.2 fL (78.0-98.0); Platelet Count 501 thou/uL (130-400); RBC Distribution Width 13.1 % (11.5-14.5); Red Blood Cell (RBC) Count 4.78 mill/uL (4.20-5.40); White Blood Cell (WBC) Count 15.1 thou/uL (4.8-10.8)
[2018-04-20 05:18] LABS: Anion Gap 13 mmol/L (10-20); BUN (Urea Nitrogen) 29 mg/dL (9.8-20.1); Calc. Creatinine Clearance 52 mL/min (70-130); Calcium 8.5 mg/dL (7.8-10.44); Carbon Dioxide 27 mmol/L (23-31); Chloride 104 mmol/L (98-107); Estimated GFR-MDRD 49; Glucose 152 mg/dL (83-110); Magnesium 2.3 mg/dL (1.6-2.6); Potassium 4.1 mmol/L (3.5-5.1); Sodium 140 mmol/L (136-145)
[2018-04-20] MEDS: Budesonide 0.5 MG/2 ML NEB NEB SCH ×2 (07:50→18:42)
[2018-04-20] MEDS: Arformoterol 15 MCG/2 ML NEB NEB SCH ×2 (08:03→18:41)
[2018-04-20] MEDS: Ezetimibe 10 MG TAB PO SCH (08:42)
[2018-04-20] MEDS: Enoxaparin Sodium 40 MG/0.4 ML SYRINGE SC SCH (08:42)
[2018-04-20] MEDS: Furosemide 20 MG TAB PO SCH (08:43)
[2018-04-20] MEDS: guaiFENesin ER 600 MG TAB PO SCH ×2 (08:43→20:42)
[2018-04-20] MEDS: Famotidine 20 MG TAB PO SCH ×2 (08:43→20:41)
[2018-04-20] MEDS: Losartan 25 MG TAB PO SCH (08:43)
[2018-04-20] MEDS: Potassium Chloride 10 MEQ TAB PO SCH (08:43)
[2018-04-20] MEDS: DALIRESP 500 MCG PO SCH (08:44)
--- NOTE | 2018-04-20 13:28 | EKG ---
Test Reason : SOB Blood Pressure : / mmHG Vent. Rate : 115 BPM Atrial Rate : 115 BPM P-R Int : 132 ms QRS Dur : 090 ms QT Int : 348 ms P-R-T Axes : 082 089 212 degrees QTc Int : 481 ms Poor data quality, interpretation may be adversely affected Sinus tachycardia Possible Left atrial enlargement Nonspecific ST and T wave abnormality Abnormal ECG Confirmed by BEE BRIGGS DO ([id number]), newspaper editor managing KASSY LOPEZ ([id number]) on 04/20/2018 1:27:49 PM Referred By: Confirmed By:BEE BRIGGS DO
--- NOTE | 2018-04-20 14:49 | PDOC.PN ---
- Subjective Encounter Start Date: 04/20/18 Encounter Start Time: 11:30 follow up for acute exacerbation of COPD, acute on chronic hypercapneic respiratory failure, acute on chronic suspecrted diastolic heart failure and tachycardia HR still elevated, breathing improved. cough nonproductive. Family requesting Dr Daniels be consulted No f/c, no N/V/D/C, no CP. still with SANTIAGO and orthopnea All systems reviewed and neg x as above - Objective Resuscitation Status - Order Detail: 04/17/18 08:10 Resuscitation Status Routine Resuscitation Status: FULL: Full Resuscitation MAR Reviewed: Yes Vital Signs & Weight: Vital Signs (12 hours) Temp Pulse Resp BP Pulse Ox 04/20/18 14:22 114 H 18 04/20/18 12:21 98.7 F 97 18 133/60 98 04/20/18 10:57 106 H 16 04/20/18 08:40 99.1 F 108 H 18 127/60 99 04/20/18 08:03 99 18 04/20/18 07:52 95 04/20/18 07:50 99 18 04/20/18 04:00 98.3 F 89 16 122/57 L 96 Weight Weight 159 lb 8 oz I&O: 04/19/18 04/20/18 04/21/18 06:59 06:59 06:59 Intake Total 182 1560 Output Total 200 1999 Balance -18 -440 Result Diagrams: 04/20/18 04:35 04/20/18 04:35 Phys Exam - Physical Examination Constitutional: NAD HEENT: PERRLA, moist MMs, sclera anicteric, oral pharynx no lesions Neck: no nodes, no JVD, supple, full ROM Respiratory: no wheezing, no rales, no rhonchi, clear to auscultation bilateral Cardiovascular: RRR, no significant murmur, no rub Gastrointestinal: soft, non-tender, no distention, positive bowel sounds Musculoskeletal: edema present Neurological: non-focal, normal sensation, moves all 4 limbs Lymphatic: no nodes Psychiatric: normal affect, A&O x 3 Dx/Plan (1) CKD (chronic kidney disease) stage 3, GFR 30-59 ml/min Status: Chronic (2) COPD (chronic obstructive pulmonary disease) Status: Chronic Qualifiers: COPD type: unspecified COPD Qualified Code(s): J44.9 - Chronic obstructive pulmonary disease, unspecified (3) HTN (hypertension) Code(s): I10 - ESSENTIAL (PRIMARY) HYPERTENSION Status: Chronic Qualifiers: Hypertension type: essential hypertension Qualified Code(s): I10 - Essential (primary) hypertension (4) Acute respiratory failure with hypoxia and hypercapnia Code(s): J96.01 - ACUTE RESPIRATORY FAILURE WITH HYPOXIA; J96.02 - ACUTE RESPIRATORY FAILURE WITH HYPERCAPNIA Status: Acute Comment: nebs, steroids, mucinex, wean O2 (5) COPD exacerbation Code(s): J44.1 - CHRONIC OBSTRUCTIVE PULMONARY DISEASE W (ACUTE) EXACERBATION Status: Acute - Plan cont current plan of care, PT/OT, social sciences lecturer, out of bed/ambulate * . echo pending, cardiology weaning [place]
[2018-04-20] MEDS: Atorvastatin Calcium 40 MG TAB PO SCH (20:42)
[2018-04-21] MEDS: Budesonide 0.5 MG/2 ML NEB NEB SCH ×2 (06:54→18:56)
[2018-04-21] MEDS: Arformoterol 15 MCG/2 ML NEB NEB SCH ×2 (07:08→18:56)
[2018-04-21] MEDS: DALIRESP 500 MCG PO SCH (09:09)
[2018-04-21] MEDS: guaiFENesin ER 600 MG TAB PO SCH ×2 (09:10→20:08)
[2018-04-21] MEDS: Furosemide 20 MG TAB PO SCH (09:10)
[2018-04-21] MEDS: Ezetimibe 10 MG TAB PO SCH (09:11)
[2018-04-21] MEDS: Enoxaparin Sodium 40 MG/0.4 ML SYRINGE SC SCH (09:11)
[2018-04-21] MEDS: Potassium Chloride 10 MEQ TAB PO SCH (09:11)
[2018-04-21] MEDS: Losartan 25 MG TAB PO SCH (09:11)
[2018-04-21] MEDS: Famotidine 20 MG TAB PO SCH ×2 (09:11→20:08)
--- NOTE | 2018-04-21 11:51 | PDOC.PN ---
- Subjective Encounter Start Date: 04/21/18 Encounter Start Time: 09:30 follow up for acute exacerbation of COPD, acute on chronic hypercapneic respiratory failure, acute on chronic suspecrted diastolic heart failure and tachycardia HR down, breathing improved. cough nonproductive. Family requesting Dr Daniels be consulted, was seen by Kristina, echo done No f/c, no N/V/D/C, no CP. still with SANTIAGO and orthopnea All systems reviewed and neg x as above - Objective Resuscitation Status - Order Detail: 04/17/18 08:10 Resuscitation Status Routine Resuscitation Status: FULL: Full Resuscitation MAR Reviewed: Yes Vital Signs & Weight: Vital Signs (12 hours) Temp Pulse Resp BP Pulse Ox 04/21/18 11:02 104 H 16 04/21/18 08:00 93 L 04/21/18 07:30 98.2 F 104 H 20 160/69 H 93 L 04/21/18 07:08 94 16 04/21/18 06:57 94 L 04/21/18 06:54 94 16 04/21/18 04:00 98.6 F 90 16 143/63 H 92 L Weight Weight 156 lb I&O: 04/20/18 04/21/18 04/22/18 06:59 06:59 06:59 Intake Total 1560 1080 Output Total 2000 1290 Balance -440 -210 Result Diagrams: 04/20/18 04:35 04/20/18 04:35 Radiology Reviewed by me: Yes Phys Exam - Physical Examination Constitutional: NAD HEENT: PERRLA, moist MMs, sclera anicteric, oral pharynx no lesions Neck: no nodes, no JVD, supple, full ROM insp and exp wheezes, poor air movement, sli prolonged expiration Cardiovascular: RRR, no significant murmur, no rub Gastrointestinal: soft, non-tender, no distention, positive bowel sounds Musculoskeletal: edema present Neurological: non-focal, normal sensation, moves all 4 limbs Lymphatic: no nodes Psychiatric: normal affect, A&O x 3 Skin: no rash, normal turgor, cap refill <2 seconds Dx/Plan (1) CKD (chronic kidney disease) stage 3, GFR 30-59 ml/min Status: Chronic Comment: stable (2) COPD (chronic obstructive pulmonary disease) Status: Chronic Qualifiers: COPD type: unspecified COPD Qualified Code(s): J44.9 - Chronic obstructive pulmonary disease, unspecified Comment: to po steroids today. conitnue nebs, may need pulm to assist (3) HTN (hypertension) Code(s): I10 - ESSENTIAL (PRIMARY) HYPERTENSION Status: Chronic Qualifiers: Hypertension type: essential hypertension Qualified Code(s): I10 - Essential (primary) hypertension (4) Acute respiratory failure with hypoxia and hypercapnia Code(s): J96.01 - ACUTE RESPIRATORY FAILURE WITH HYPOXIA; J96.02 - ACUTE RESPIRATORY FAILURE WITH HYPERCAPNIA Status: Acute Comment: nebs, steroids, mucinex, off o2 now (5) COPD exacerbation Code(s): J44.1 - CHRONIC OBSTRUCTIVE PULMONARY DISEASE W (ACUTE) EXACERBATION Status: Acute - Plan cont current plan of care, continue antibiotics, PT/OT, transition social worker, respiratory therapy, out of bed/ambulate * . echo with EF 50-55%. otherwise pretty normal
[2018-04-21] MEDS: Atorvastatin Calcium 40 MG TAB PO SCH (20:07)
[2018-04-22] MEDS: Budesonide 0.5 MG/2 ML NEB NEB SCH (07:35)
[2018-04-22] MEDS: Arformoterol 15 MCG/2 ML NEB NEB SCH (07:37)
[2018-04-22] MEDS: Losartan 25 MG TAB PO SCH (09:16)
[2018-04-22] MEDS: Potassium Chloride 10 MEQ TAB PO SCH (09:17)
[2018-04-22] MEDS: guaiFENesin ER 600 MG TAB PO SCH (09:17)
[2018-04-22] MEDS: Famotidine 20 MG TAB PO SCH (09:17)
[2018-04-22] MEDS: Ezetimibe 10 MG TAB PO SCH (09:17)
[2018-04-22] MEDS: Enoxaparin Sodium 40 MG/0.4 ML SYRINGE SC SCH (09:18)
[2018-04-22] MEDS: Furosemide 20 MG TAB PO SCH (09:18)
[2018-04-22] MEDS: DALIRESP 500 MCG PO SCH (09:19)
[2018-04-22 11:45] VITALS: BP 130/61
[2018-04-22 13:41] VITALS: TEMP 98.5
--- NOTE | 2018-04-23 02:42 | DIS ---
DATE OF ADMISSION: 04/17/2018 DATE OF DISCHARGE: 04/22/2018 DISCHARGE DIAGNOSES: 1. Acute on chronic hypoxemic hypercapnic respiratory failure. 2. Chronic obstructive pulmonary disease with acute exacerbation, resolved. 3. Demand ischemia secondary to #1 and #2. 4. Coronary artery disease, chronic and stable. 5. Chronic kidney disease, stage 3. 6. Hypertension, labile. CONSULTATIONS: Dr. Mir Acevedo with Cardiology Service. PERTINENT LAB AND X-RAY FINDINGS: Creatinine ranged between 0.96 to 1.26. Estimated GFR ranged between 42 to 57. Troponin I ranged between 0.51 to 0.56. BNP 1817, previously noted 1158 on 04/17/2018. CBC showed a white blood cell count ranged between 9.3 to 16.1, hemoglobin ranged between 11.[address] angiogram of the chest dated 04/17/2018 showed no evidence for pulmonary embolus. Emphysematous changes bilaterally. A 2D transthoracic echocardiogram dated 04/18/2018 showed ejection fraction of 50% to 55%. Mild tricuspid valve regurgitation. HOSPITAL COURSE: The patient was initially admitted to the telemetry unit after presenting with increased shortness of breath in the context of known chronic obstructive pulmonary disease. The patient was placed on IV Solu-Medrol, IV Levaquin and given bronchodilator therapy with nebulized treatments. The patient was slow to clinically improve with aggressive pulmonary supportive management; however, did improve by the time of discharge. The patient was also noted with elevated troponin I necessitating consultation with Cardiology Service who recommended general medical management as the patient's presentation, likely the underlying etiology of the elevated troponin I with acute respiratory failure. No specific acute intervention was recommended; however, the patient was placed on losartan 25 mg daily. The patient was also decreased on metoprolol dosing and continued on aspirin and Lipitor. Telemetry monitoring showed sinus mechanism without evidence of acute arrhythmia or dysrhythmia. The patient overall clinically stabilized and was maintaining O2 saturations in the mid to upper 90% range on room air. I have examined the patient at the time of discharge and discussed followup instructions. The patient verbalized understanding and in agreement. Ready for discharge on 04/22/2018. DISCHARGE MEDICATIONS: 1. ProAir HFA two puffs inhaled every 4 hours p.r.n. 2. Enteric-coated aspirin 81 mg p.o. daily. 3. Lipitor 80 mg p.o. at bedtime. 4. Pulmicort nebulized solution 0.5 mg nebulized b.i.d. 5. Zetia 5 mg p.o. daily. 6. Perforomist 20 mcg inhaled b.i.d. 7. Lasix 20 mg p.o. daily. 8. DuoNeb 3 mL nebulized t.i.d. p.r.n. 9. Potassium chloride 10 mEq p.o. daily. 10. Daliresp 500 mcg p.o. b.i.d. 11. Anoro Ellipta 62.5/25 mcg one inhalation daily. 12. Losartan 25 mg p.o. daily. 13. Toprol-XL 12.5 mg p.o. daily. 14. Prednisone 10 mg, take 2 tablets p.o. b.i.d. x2 days, followed by 2 tablets p.o. daily x2 days, followed by 1 tab p.o. daily x2 days. FOLLOWUP: The patient is to follow up with Dr. Juan Weston within 7 days of discharge. The patient will follow up with Dr. Loco Daniels with [facility] and to call his office for appointment time and date. CONDITION ON DISCHARGE: Stable. ACTIVITY: Ad areli. DIET: Heart healthy. CODE STATUS: Full. DISPOSITION: Home on 04/22/2018. Total time in preparing and coordinating discharge is 34 minutes. Job ID: [id number]
== END 2018-04-22 14:50 | disposition home or self-care (01) | DRG 190 ==
LOC: ERS 05:10 → 2NO 06:34
PROVIDERS: ADMIT Internal Medicine; ATTEND Internal Medicine
PROC: B24BZZZ Ultrasonography of Heart with Aorta (ICD-10-PCS; principal; 2018-04-20)
DX: J44.1 Chronic obstructive pulmonary disease with (acute) exacerbation (principal); J96.22 Acute and chronic respiratory failure with hypercapnia; I50.33 Acute on chronic diastolic (congestive) heart failure; J96.21 Acute and chronic respiratory failure with hypoxia; I24.8 Other forms of acute ischemic heart disease; I13.0 Hypertensive heart and chronic kidney disease with heart failure and stage 1 through stage 4 chronic kidney disease, or unspecified chronic kidney disease; I43 Cardiomyopathy in diseases classified elsewhere; N18.3 Chronic kidney disease, stage 3 (moderate); Z79.01 Long term (current) use of anticoagulants; Z79.82 Long term (current) use of aspirin; Z79.51 Long term (current) use of inhaled steroids; E78.5 Hyperlipidemia, unspecified; Z91.14 Patient's other noncompliance with medication regimen; R00.0 Tachycardia, unspecified; T49.6X5A Adverse effect of otorhinolaryngological drugs and preparations, initial encounter
CPT/HCPCS: 36415; 71045; 71275; 80048; 80053; 82553; 82805; 83735; 83880; 84484; 85025; 85379; 93005; 93306; 94640; 94644; 96372; G8978-GP-CI; G8979-GP-CI; G8980-GP-CI; G8987-GO-CI; G8988-GO-CI; G8989-GO-CI; J1650; J2920; J7611; J7620; J7626

== ENCOUNTER 2018-05-28 18:37 | Emergency (ER) | payer MEDICARE, MEDICAID ==
[2018-05-28] MEDS ORDERED: Dexamethasone 10 MG/ML VIAL ONE (19:22)
[2018-05-28 19:26] LABS: Actual Bicarbonate (HCO3a) 24.5 mEq/L (22-28); Analyzer IN Cardio ER; Base Excess (BEa) -0.2 mEq/L (-2.0 to +3.0); CO2 Tension 40.6 mmHg (35.0-45.0); Calcium, Ionized 1.16 mmol/L (1.12-1.30); Carboxyhemoglobin (COHb) 0.2 gm% (0.0-3.0); Hemoglobin (Hb) 12.4 g/dL (12.0-16.0); Potassium - ABG Lab 3.29 mmol/L (3.70-5.30)
[2018-05-28 19:40] LABS: O2 Tension (PaO2) 54.3 mmHg (> 70.0); Puncture Site RBA
[2018-05-28 20:11] LABS: #Basophils 0.1 thou/uL (0.0-0.2); #Eosinphils 0.7 thou/uL (0.0-0.7); #Lymphocytes 1.2 thou/uL (1.20-3.40); #Monocytes 0.2 thou/uL (0.11-0.59); #Neutrophils 13.8 thou/uL (1.40-6.50); %Basophils 0.3 % (0.0-1.0); %Eosinophils 4.7 % (0.0-10.0); %Lymphocytes 7.5 % (21.0-51.0); %Monocytes 1.3 % (0.0-10.0); %Neutrophils 86.2 % (42.0-75.0); Hemoglobin 12.1 g/dL (12.0-16.0); Mean Corpuscular HGB CONC 32.7 g/dL (32.0-36.0); Mean Corpuscular Hemoglobin 29.2 pg (27.0-31.0); Mean Corpuscular Volume 89.1 fL (78.0-98.0); Mean Platelet Volume 7.8 fL (7.4-10.4); Platelet Count 291 thou/uL (130-400); RBC Distribution Width 12.8 % (11.5-14.5); Red Blood Cell (RBC) Count 4.15 mill/uL (4.20-5.40); White Blood Cell (WBC) Count 16.1 thou/uL (4.8-10.8)
[2018-05-28 20:27] LABS: ALT (SGPT) 14 U/L (8-55); AST (SGOT) 20 U/L (5-34); Albumin 4.3 g/dL (3.4-4.8); Alkaline Phosphatase 166 U/L (40-150); Anion Gap 19 mmol/L (10-20); BUN (Urea Nitrogen) 15 mg/dL (9.8-20.1); Bilirubin, Total 0.3 mg/dL (0.2-1.2); Calc. Creatinine Clearance 0 mL/min (70-130); Calcium 9.3 mg/dL (7.8-10.44); Carbon Dioxide 23 mmol/L (23-31); Chloride 106 mmol/L (98-107); Estimated GFR-MDRD 53; Globulin 2.4 g/dL (2.4-3.5); Glucose 141 mg/dL (83-110); Potassium 3.7 mmol/L (3.5-5.1); Protein, Total 6.7 g/dL (6.0-8.3); Sodium 144 mmol/L (136-145)
[2018-05-28 20:49] LABS: CKMB 2.9 ng/mL (0-6.6)
--- NOTE | 2018-05-28 21:13 | RAD ---
PORTABLE UPRIGHT FRONTAL CHEST RADIOGRAPH 05/28/18 COMPARISON: 04/17/18 HISTORY: Difficulty breathing. FINDINGS: Mild stable increased linear interstitial density noted. Stable postoperative hardware within the cer vical spine. No pneumothorax, pleural fluid, lobar consolidation, or alveolar edema. IMPRESSION: Stable appearance of the chest - no acute findings. POS: H
== END 2018-05-28 21:07 | disposition home or self-care (01) ==
LOC: ERS 18:37
DX: J44.1 Chronic obstructive pulmonary disease with (acute) exacerbation (principal); R79.89 Other specified abnormal findings of blood chemistry; I10 Essential (primary) hypertension; E78.5 Hyperlipidemia, unspecified; Z79.51 Long term (current) use of inhaled steroids; Z79.899 Other long term (current) drug therapy
CPT/HCPCS: 36415; 71045; 80053; 82553; 82805; 84484; 85025; 93005; 96361; 96374; J1100

== ENCOUNTER 2018-05-31 05:26 | Outpatient (CLI) | payer MEDICARE, MEDICAID ==
[2018-05-31 12:02] LABS: #Lymphocytes 1.3 thou/uL (1.20-3.40); #Monocytes 0.4 thou/uL (0.11-0.59); #Neutrophils 9.9 thou/uL (1.40-6.50); %Basophils 0.1 % (0.0-1.0); %Eosinophils 0.2 % (0.0-10.0); %Lymphocytes 11.3 % (21.0-51.0); %Monocytes 3.7 % (0.0-10.0); %Neutrophils 84.7 % (42.0-75.0); Mean Corpuscular HGB CONC 30.9 g/dL (32.0-36.0); Mean Corpuscular Hemoglobin 27.3 pg (27.0-31.0); Mean Corpuscular Volume 88.2 fL (78.0-98.0); Mean Platelet Volume 7.9 fL (7.4-10.4); Platelet Count 337 thou/uL (130-400); RBC Distribution Width 13.1 % (11.5-14.5); Red Blood Cell (RBC) Count 4.41 mill/uL (4.20-5.40); White Blood Cell (WBC) Count 11.7 thou/uL (4.8-10.8)
[2018-05-31 12:29] LABS: ALT (SGPT) 12 U/L (8-55); AST (SGOT) 13 U/L (5-34); Albumin 4.7 g/dL (3.4-4.8); Alkaline Phosphatase 136 U/L (40-150); Anion Gap 16 mmol/L (10-20); BUN (Urea Nitrogen) 21 mg/dL (9.8-20.1); Bilirubin, Total 0.3 mg/dL (0.2-1.2); Calc. Creatinine Clearance 0 mL/min (70-130); Calcium 9.9 mg/dL (7.8-10.44); Carbon Dioxide 24 mmol/L (23-31); Chloride 106 mmol/L (98-107); Estimated GFR-MDRD 49; Globulin 2.8 g/dL (2.4-3.5); Glucose 118 mg/dL (83-110); Potassium 3.9 mmol/L (3.5-5.1); Protein, Total 7.5 g/dL (6.0-8.3); Sodium 142 mmol/L (136-145)
--- NOTE | 2018-05-31 13:34 | RAD ---
CHEST FRONTAL AND LATERAL IMAGIN05/31/2018 HISTORY: Preoperative patient. COMPARISON: 05/13/2013 FINDINGS: The heart and mediastinal contours are stable. There is cervical spine anterior diskectomy and fusio n hardware. There is no pneumothorax, pleural fluid, lobar consolidation, or alveolar edema. The ca rdiac silhouette is mildly prominent on the lateral view. The lungs appear mildly hyperinflated. IMPRESSION: No focal consolidation or alveolar edema. POS: PIPEH
== END 2018-05-31 05:27 | disposition home or self-care (01) ==
LOC: LABBT 05:26
PROVIDERS: ATTEND Internal Medicine Cardiovascular Disease
DX: Z01.818 Encounter for other preprocedural examination (principal); R94.02 Abnormal brain scan
CPT/HCPCS: 71046; 80053; 85025; 93005; 93010

== ENCOUNTER 2018-06-03 06:03 | Inpatient (IN) | payer MEDICARE, MEDICAID ==
[2018-06-03] MEDS ORDERED: Midazolam HCl 2 mg/2 ml Vial ONE (06:35)
[2018-06-03] MEDS ORDERED: Lidocaine 1% (PF) 30 ML VIAL ONE (06:35)
[2018-06-03] MEDS ORDERED: Fentanyl 100 MCG/2 ML VIAL ONE (06:35)
[2018-06-03] MEDS ORDERED: Heparin 10,000 UNITS/1 ML VIAL ONE ×2 (07:00→08:36)
[2018-06-03] MEDS ORDERED: Nitroglycerin 100MG/250ML BOT 250 ML ONE (07:30)
[2018-06-03] MEDS ORDERED: Aggrastat 12.5 MG/250 ML 250 ML ONE (07:33)
[2018-06-03] MEDS ORDERED: Clopidogrel Bisulfate 300 MG TAB ONE (07:33)
[2018-06-03] MEDS ORDERED: Aspirin Chewable 81 MG TAB ONE (07:33)
[2018-06-03] MEDS ORDERED: Nitroglycerin 0.4 MG TAB (25 Tab Bottle) SL PRN (08:51)
[2018-06-03] MEDS ORDERED: cloNIDine 0.1 MG TAB PO PRN (08:51)
[2018-06-03] MEDS ORDERED: Iopamidol 370 76% 50 ML VIAL FS ONE (09:20)
[2018-06-03] MEDS ORDERED: Iopamidol 370 76% 100 ML VIAL ONE (09:20)
[2018-06-03] MEDS ORDERED: cloNIDine 0.1 MG TAB ONE (10:40)
[2018-06-03] MEDS: Aspirin Chewable 81 MG TAB PO SCH (16:18)
[2018-06-03] MEDS: Clopidogrel Bisulfate 75 MG TAB PO SCH (16:19)
[2018-06-03] MEDS: Sodium Chloride 0.9% 1,000 ML IV SCH ×2 (16:22→16:37)
[2018-06-03 17:22] VITALS: BMI 26.9
[2018-06-03] MEDS ORDERED: Potassium Chloride 20 MEQ TAB PO SCH (19:45)
--- NOTE | 2018-06-03 20:21 | EKG ---
Test Reason : POST STENT Blood Pressure : / mmHG Vent. Rate : 085 BPM Atrial Rate : 085 BPM P-R Int : 122 ms QRS Dur : 084 ms QT Int : 374 ms P-R-T Axes : 083 081 070 degrees QTc Int : 445 ms Normal sinus rhythm Normal ECG When compared with ECG of 31-MAY-2018 11:39, (Unconfirmed) No significant change was found Confirmed by GRIS RIOJAS, . STj (4) on 06/03/2018 8:20:37 PM Referred By: ZAIN Confirmed By:DR. Conchis LANDRY MD
[2018-06-04 06:28] LABS: #Basophils 0.1 thou/uL (0.0-0.2); #Eosinphils 2.1 thou/uL (0.0-0.7); #Lymphocytes 2.6 thou/uL (1.20-3.40); #Monocytes 0.6 thou/uL (0.11-0.59); #Neutrophils 7.4 thou/uL (1.40-6.50); %Basophils 0.6 % (0.0-1.0); %Eosinophils 16.2 % (0.0-10.0); %Lymphocytes 20.4 % (21.0-51.0); %Monocytes 4.9 % (0.0-10.0); %Neutrophils 57.9 % (42.0-75.0); Mean Corpuscular Hemoglobin 28.6 pg (27.0-31.0); Mean Corpuscular Volume 89.5 fL (78.0-98.0); Mean Platelet Volume 7.8 fL (7.4-10.4); Platelet Count 241 thou/uL (130-400); RBC Distribution Width 13.4 % (11.5-14.5); Red Blood Cell (RBC) Count 3.83 mill/uL (4.20-5.40); White Blood Cell (WBC) Count 12.7 thou/uL (4.8-10.8)
[2018-06-04 06:42] LABS: Anion Gap 11 mmol/L (10-20); BUN (Urea Nitrogen) 18 mg/dL (9.8-20.1); Calc. Creatinine Clearance 65 mL/min (70-130); Calcium 8.1 mg/dL (7.8-10.44); Carbon Dioxide 23 mmol/L (23-31); Chloride 110 mmol/L (98-107); Estimated GFR-MDRD 66; Glucose 91 mg/dL (83-110); Potassium 4.2 mmol/L (3.5-5.1); Sodium 140 mmol/L (136-145)
[2018-06-04] MEDS: Clopidogrel Bisulfate 75 MG TAB PO SCH (09:48)
[2018-06-04] MEDS: Aspirin Chewable 81 MG TAB PO SCH (09:48)
[2018-06-04] MEDS ORDERED: Guaifenesin DM 100-10/5 ML UDCUP PO PRN (11:28)
[2018-06-04] MEDS ORDERED: Calcium Carbonate 500 MG ChewTAB PO PRN (11:28)
[2018-06-04] MEDS ORDERED: Senokot S 8.6-50 MG TAB PO PRN (11:28)
[2018-06-04] MEDS ORDERED: Bisacodyl 10 MG SUPP PR PRN (11:28)
[2018-06-04] MEDS ORDERED: Acetaminophen 325 MG TAB PO PRN (11:28)
[2018-06-04] MEDS ORDERED: Ondansetron ODT 4 MG TAB PO PRN (11:28)
[2018-06-04] MEDS ORDERED: Ondansetron PF 4 MG/2 ML Vial IVP PRN (11:28)
[2018-06-04] MEDS ORDERED: Communication Order-Pharmacy FS SCH (17:45)
[2018-06-04] MEDS: Arformoterol 15 MCG/2 ML NEB NEB SCH (18:15)
[2018-06-04] MEDS: Budesonide 0.5 MG/2 ML NEB NEB SCH (18:15)
[2018-06-04] MEDS: Sodium Chloride 0.9% 1,000 ML IV SCH (18:30)
[2018-06-04] MEDS: Atorvastatin Calcium 40 MG TAB PO SCH (21:09)
[2018-06-04] MEDS: Famotidine 20 MG TAB PO SCH (21:09)
--- NOTE | 2018-06-04 21:34 | EKG ---
Test Reason : Blood Pressure : / mmHG Vent. Rate : 090 BPM Atrial Rate : 090 BPM P-R Int : 116 ms QRS Dur : 082 ms QT Int : 368 ms P-R-T Axes : 063 081 062 degrees QTc Int : 450 ms Normal sinus rhythm Normal ECG When compared with ECG of 03-JUN-2018 09:53, No significant change was found Confirmed by GRIS RIOJAS, DR. Balderrama ([id number]) on 06/04/2018 9:34:16 PM Referred By: ZAIN Confirmed By:DR. Conchis LANDRY MD
--- NOTE | 2018-06-04 22:04 | PDOC.PN ---
- Subjective Encounter Start Date: 06/04/18 Encounter Start Time: 09:00 Patient seen and examined for med mngt. No CP. No new complaints. No overnight events - Objective Resuscitation Status - Order Detail: 06/04/18 11:28 Resuscitation Status Routine Resuscitation Status: FULL: Full Resuscitation MAR Reviewed: Yes Vital Signs & Weight: Vital Signs (12 hours) Temp Pulse Resp BP Pulse Ox 06/04/18 20:00 99.4 F 103 H 19 116/48 L 94 L 06/04/18 18:12 94 20 94 L 06/04/18 16:00 99.2 F 89 16 136/65 95 06/04/18 12:43 102 H 20 95 06/04/18 12:00 99.6 F 95 16 140/86 97 Weight Weight 150 lb 1 oz I&O: 06/03/18 06/04/18 06/05/18 06:59 06:59 06:59 Intake Total 1571 200 Output Total 1850 Balance -279 200 Result Diagrams: 06/04/18 05:39 06/04/18 05:39 Phys Exam - Physical Examination Constitutional: NAD Respiratory: no wheezing, no rhonchi Cardiovascular: RRR, no rub Gastrointestinal: soft, non-tender, positive bowel sounds Musculoskeletal: no edema Neurological: moves all 4 limbs Dx/Plan (1) CKD (chronic kidney disease) stage 3, GFR 30-59 ml/min Status: Chronic (2) COPD (chronic obstructive pulmonary disease) Status: Chronic Qualifiers: COPD type: unspecified COPD Qualified Code(s): J44.9 - Chronic obstructive pulmonary disease, unspecified (3) HTN (hypertension) Code(s): I10 - ESSENTIAL (PRIMARY) HYPERTENSION Status: Chronic Qualifiers: Hypertension type: essential hypertension Qualified Code(s): I10 - Essential (primary) hypertension (4) CAD (coronary artery disease) Code(s): I25.10 - ATHSCL HEART DISEASE OF [place] CORONARY ARTERY W/O ANG PCTRS Status: Chronic - Plan DVT proph w/SCDs Resume home meds including Toprol -: Cont Losartan -: AM labs -: Resume COPD meds -: Full code. DPOA - self/family Review of Systems - Review of Systems Respiratory: negative: Cough, Dry, Shortness of Breath, Hemoptysis, SOB with Excertion, Pleuritic Pain, Sputum, Wheezing Cardiovascular: negative: chest pain, palpitations, orthopnea, paroxysmal nocturnal dyspnea, edema, light headedness, other - Medications/Allergies Allergies/Adverse Reactions: Allergies Allergy/AdvReac Type Severity Reaction Status Date / Time codeine AdvReac "just made Verified 03/20/16 11:44 me sick" erythromycin base AdvReac "just mead Verified 03/20/16 11:44 [Erythromycin Base] me sick" tramadol AdvReac "just had Verified 03/20/16 11:44 to stay in bed" Medications: Current Medications Acetaminophen (Tylenol) 650 mg PO Q4H PRN PRN Reason: Headache/Fever/Mild Pain (1-3) Albuterol/Ipratropium (Duoneb) 3 ml NEB TID-RT [facility] Last Admin: 06/04/18 18:12 Dose: 3 ml Albuterol/Ipratropium (Duoneb) 3 ml NEB Q4H PRN PRN Reason: SOB &/or Wheezing Arformoterol Tartrate (Brovana) 15 mcg NEB BID-RT [facility] Last Admin: 06/04/18 18:15 Dose: 15 mcg Aspirin (Aspirin Chewable) 81 mg PO DAILY [facility] Last Admin: 06/04/18 09:48 Dose: 81 mg Atorvastatin Calcium (Lipitor) 80 mg PO HS [facility] Last Admin: 06/04/18 21:09 Dose: 80 mg Bisacodyl (Dulcolax) 10 mg [place] DAILYPRN PRN PRN Reason: Constipation Budesonide (Pulmicort Neb Solution) 0.5 mg NEB BID-RT [facility] Last Admin: 06/04/18 18:15 Dose: 0.5 mg Calcium Carbonate (Tums) 1,000 mg PO Q4H PRN PRN Reason: Heartburn or Indigestion Clonidine (Catapres) 0.1 mg PO Q2H PRN PRN Reason: SBP GREATER THAN 160 Clopidogrel Bisulfate (Plavix) 75 mg PO DAILY [facility] Last Admin: 06/04/18 09:48 Dose: 75 mg Cyclobenzaprine HCl (Flexeril) 10 mg PO DAILY [facility] Ezetimibe (Zetia) 5 mg PO DAILY [facility] Famotidine (Pepcid) 20 mg PO BID [facility] Last Admin: 06/04/18 21:09 Dose: 20 mg Guaifenesin/Dextromethorphan (Robitussin Dm) 15 ml PO Q4H PRN PRN Reason: Cough Sodium Chloride (Normal Saline 0.9%) 1,000 mls @ 100 mls/hr IV .Q10H [facility] Last Admin: 06/04/18 18:30 Dose: 1,000 mls Losartan Potassium (Cozaar) 25 mg PO DAILY [facility] Metoprolol Succinate (Toprol Xl) 50 mg PO DAILY [facility] Miscellaneous Information (Communication Order-Pharmacy) 0 each FS ONE [facility] Stop: 06/05/18 17:46 Morphine Sulfate (Morphine) 2 mg SLOW IVP Q4H PRN PRN Reason: Moderate Chest Pain (4-6) Nitroglycerin (Nitrostat) 0.4 mg SL Q5MIN PRN PRN Reason: Chest Pain Ondansetron HCl (Zofran Odt) 4 mg PO Q6H PRN PRN Reason: Nausea/Vomiting Ondansetron HCl (Zofran) 4 mg IVP Q6H PRN PRN Reason: Nausea/Vomiting Daliresp 500 Mcg 0 each PO DAILY [facility] Potassium Chloride (Klor-Con 10) 10 meq PO QAM-WM [facility] Senna/Docusate Sodium (Senokot S) 2 tab PO BID PRN PRN Reason: Constipation Sodium Chloride (Flush - Normal Saline) 10 ml IVF Q12HR [facility] Last Admin: 06/04/18 21:09 Dose: Not Given
--- NOTE | 2018-06-04 23:41 | CCL ---
CARDIAC CATHETERIZATION REPORT 06/03/18 PROCEDURE: Left heart catheterization, selective coronary arteriography, and left ventriculography, intracoronary nitroglycerine, drug eluding stent placement in the mid to ostial right coronary artery. INDICATION: Abnormal Cardiolite and elevated troponin on last admission. DESCRIPTION OF PROCEDURE: The patient was brought to the Cardiac Vice President Payment and was given Fentanyl 25 mg IV and versed 1 mg IV for moderate conscious sedation with monitoring throughout the procedure. 1% lidocaine was infiltrated. A 6 Turkmen sheath was placed to the right femoral artery. Heparin 3000 units was given. There was some difficulty in the J-wire negotiating the right iliofemoral system and the pigtail was inserted over the J-wire. Pressures were obtained and left ventriculogram was performed using 30 mL of contrast at 12 mL per second in an CARLOS 30 degree projection. Pressure were obtained and pigtail was removed over a wire for a 6 Turkmen Jed left 4. Left coronary arteriography was performed and this was then removed over a wire for a 6 Turkmen Jed right 4. The 6 Turkmen Jed right 4 was removed over a wire for a 6 Turkmen Jed right 4 guide catheter. ACTs were obtained to maintain value of greater than 300 with heparin being given. There also appeared to be a thrombus proximal to the lesion in the right coronary artery and Aggrastat bolus and drip were given. There was some difficulty in the wire negotiating the bend in this 90% lesion. Finally, this area was wired and Emerge 3.5 x 12 mm balloon was inserted but would not pass the area of stenosis. This was then removed and Emerge 2.0 x 12 mm balloon was inserted and inflated to high atmospheres. This was removed and a 3.5 x 12 mm Emerge was reinserted and the area was dilated. Synergy 4.0 x 20 mm stent was then positioned and deployed. The proximal portion of this was at the ostium. There continued to be an area of narrowing in the mid portion of the stent and NC Emerge 5.0 x 12 mm balloon was inserted with multiple inflammations in the stent. Intracoronary nitroglycerin 200 micrograms was given on multiple occasions. There continued to be an area of stenosis in the mid RCA which may have looked much worse with straightening with the wire. The decision was made stent this segment in addition. Synergy 2.5 x 32 mm stent was inserted. This would not totally cross the area of the distal stenosis and the decision was made to go ahead and deploy this. That was then performed and then Synergy 3.5 x 12 mm stent was placed distal and overlapping the stent. Final result was excellent. Due to the amount of contrast given, it was felt best to return another day to intervene in the proximal circumference. The sheaths were sutured in placed. Patient was transferred to the PCU. RESULTS: PRESSURES: Aorta 180/81, mean of 128 Left Ventricle 180/18 LEFT VENTRICULOGRAM: There was mild inferior wall hypokinesis. Ejection fraction was 50-55%. There was mild mitral regurgitation. CORONARY ARTERIOGRAPHY: 1. The left main had a 20% stenosis. 2. The LAD had a 20% mid stenosis. 3. The circumflex had a 90% proximal stenosis. 4. The right coronary artery had a 90% proximal stenosis and a 60% mid stenosis. INTERVENTION RESULTS: The 90% lesion in the right coronary artery was reduced to 0%. The mid 60% lesion was reduced to 0%. IMPRESSION: 1. Two vessel coronary artery disease (LAD and circumflex). 2. Mild left ventricular dysfunction. 3. Mild mitral regurgitation. 4. Successful drug eluding stent placement in the proximal to mid right coronary artery. MTDD
[2018-06-05 05:38] LABS: Anion Gap 12 mmol/L (10-20); BUN (Urea Nitrogen) 18 mg/dL (9.8-20.1); Calc. Creatinine Clearance 60 mL/min (70-130); Calcium 8.5 mg/dL (7.8-10.44); Carbon Dioxide 24 mmol/L (23-31); Chloride 109 mmol/L (98-107); Estimated GFR-MDRD 61; Glucose 97 mg/dL (83-110); Magnesium 2.2 mg/dL (1.6-2.6); Sodium 141 mmol/L (136-145)
[2018-06-05] MEDS ORDERED: Heparin 10,000 UNITS/1 ML VIAL ONE (06:41)
[2018-06-05] MEDS: Sodium Chloride 0.9% 1,000 ML IV SCH (06:46)
[2018-06-05] MEDS ORDERED: Bivalirudin 250 MG VIAL ONE (07:04)
[2018-06-05] MEDS ORDERED: Midazolam HCl 2 mg/2 ml Vial ONE (07:06)
[2018-06-05] MEDS ORDERED: Fentanyl 100 MCG/2 ML VIAL ONE (07:07)
[2018-06-05] MEDS: Arformoterol 15 MCG/2 ML NEB NEB SCH ×2 (07:17→20:02)
[2018-06-05] MEDS: Budesonide 0.5 MG/2 ML NEB NEB SCH ×2 (07:17→20:05)
[2018-06-05] MEDS ORDERED: Nitroglycerin 100MG/250ML BOT 250 ML ONE (07:25)
[2018-06-05] MEDS ORDERED: Sodium Chloride 0.9% 1,000 ML IV SCH (08:11)
[2018-06-05] MEDS ORDERED: Furosemide 20 MG TAB PO SCH (09:00)
[2018-06-05] MEDS ORDERED: Non-Formulary Item 1 EACH (Umeclidinium Brm/Vilanterol Tr [Anoro Ellipta] 1 INH) IH SCH (09:00)
[2018-06-05] MEDS ORDERED: DALIRESP 500 MCG PO SCH (09:00)
[2018-06-05] MEDS ORDERED: Iopamidol 370 76% 100 ML VIAL ONE (10:57)
[2018-06-05] MEDS ORDERED: Iopamidol 370 76% 50 ML VIAL FS ONE (10:57)
[2018-06-05] MEDS: Potassium Chloride 10 MEQ TAB PO SCH (12:28)
[2018-06-05] MEDS: Clopidogrel Bisulfate 75 MG TAB PO SCH (12:29)
[2018-06-05] MEDS: Aspirin Chewable 81 MG TAB PO SCH (12:29)
[2018-06-05] MEDS: Losartan 25 MG TAB PO SCH (13:22)
[2018-06-05] MEDS: Ezetimibe 10 MG TAB PO SCH (13:22)
[2018-06-05] MEDS: Famotidine 20 MG TAB PO SCH ×2 (13:22→22:00)
[2018-06-05] MEDS: Cyclobenzaprine 10 MG TAB PO SCH (13:22)
--- NOTE | 2018-06-05 16:01 | EKG ---
Test Reason : POST STENTS X3 - RCA Blood Pressure : / mmHG Vent. Rate : 083 BPM Atrial Rate : 083 BPM P-R Int : 124 ms QRS Dur : 082 ms QT Int : 380 ms P-R-T Axes : 071 082 071 degrees QTc Int : 446 ms Normal sinus rhythm Normal ECG When compared with ECG of 04-JUN-2018 07:10, No significant change was found Confirmed by GRIS RIOJAS, . STj (4) on 06/05/2018 4:01:18 PM Referred By: ZAIN Confirmed By:DR. Conchis LANDRY MD
--- NOTE | 2018-06-05 19:56 | PDOC.PN ---
- Subjective Encounter Start Date: 06/05/18 Encounter Start Time: 13:00 Patient seen and examined for med mngt. s/p Cx stent placement. No CP/SOB. No new complaints. No overnight events - Objective Resuscitation Status - Order Detail: 06/04/18 11:28 Resuscitation Status Routine Resuscitation Status: FULL: Full Resuscitation MAR Reviewed: Yes Vital Signs & Weight: Vital Signs (12 hours) Temp Pulse Resp BP Pulse Ox 06/05/18 16:00 97.6 F 95 16 129/64 94 L 06/05/18 13:40 97 14 06/05/18 13:10 97.5 F L 89 16 164/78 H 96 Weight Weight 150 lb 1 oz I&O: 06/04/18 06/05/18 06/06/18 06:59 06:59 06:59 Intake Total 2568 669 2591 Output Total 1850 1600 Balance -279 200 35 Result Diagrams: 06/04/18 05:39 06/05/18 04:43 EKG Reviewed by me: Yes (Tele SR) Phys Exam - Physical Examination Constitutional: NAD Respiratory: no wheezing, no rhonchi Cardiovascular: RRR, no rub Gastrointestinal: soft, non-tender, positive bowel sounds Musculoskeletal: no edema Neurological: moves all 4 limbs Dx/Plan (1) COPD (chronic obstructive pulmonary disease) Status: Chronic Qualifiers: COPD type: unspecified COPD Qualified Code(s): J44.9 - Chronic obstructive pulmonary disease, unspecified (2) CKD (chronic kidney disease) stage 3, GFR 30-59 ml/min Status: Chronic (3) HTN (hypertension) Code(s): I10 - ESSENTIAL (PRIMARY) HYPERTENSION Status: Chronic Qualifiers: Hypertension type: essential hypertension Qualified Code(s): I10 - Essential (primary) hypertension (4) CAD (coronary artery disease) Code(s): I25.10 - ATHSCL HEART DISEASE OF [place] CORONARY ARTERY W/O ANG PCTRS Status: Chronic - Plan cont current plan of care, respiratory therapy, DVT proph w/SCDs Cont Nebs/LABA -: Cont Losartan, Resume Lasix in AM -: Cont other meds as below Review of Systems - Review of Systems Respiratory: negative: Cough, Dry, Shortness of Breath, Hemoptysis, SOB with Excertion, Pleuritic Pain, Sputum, Wheezing Cardiovascular: negative: chest pain, palpitations, orthopnea, paroxysmal nocturnal dyspnea, edema, light headedness, other - Medications/Allergies Allergies/Adverse Reactions: Allergies Allergy/AdvReac Type Severity Reaction Status Date / Time codeine AdvReac "just made Verified 03/20/16 11:44 me sick" erythromycin base AdvReac "just mead Verified 03/20/16 11:44 [Erythromycin Base] me sick" tramadol AdvReac "just had Verified 03/20/16 11:44 to stay in bed" Medications: Current Medications Acetaminophen (Tylenol) 650 mg PO Q4H PRN PRN Reason: Headache/Fever/Mild Pain (1-3) Albuterol/Ipratropium (Duoneb) 3 ml NEB TID-RT [facility] Last Admin: 06/05/18 13:40 Dose: 3 ml Albuterol/Ipratropium (Duoneb) 3 ml NEB Q4H PRN PRN Reason: SOB &/or Wheezing Arformoterol Tartrate (Brovana) 15 mcg NEB BID-RT [facility] Last Admin: 06/05/18 07:17 Dose: Not Given Aspirin (Aspirin Chewable) 81 mg PO DAILY [facility] Last Admin: 06/05/18 12:29 Dose: Not Given Atorvastatin Calcium (Lipitor) 80 mg PO HS [facility] Last Admin: 06/04/18 21:09 Dose: 80 mg Bisacodyl (Dulcolax) 10 mg DC DAILYPRN PRN PRN Reason: Constipation Budesonide (Pulmicort Neb Solution) 0.5 mg NEB BID-RT [facility] Last Admin: 06/05/18 07:17 Dose: Not Given Calcium Carbonate (Tums) 1,000 mg PO Q4H PRN PRN Reason: Heartburn or Indigestion Clonidine (Catapres) 0.1 mg PO Q2H PRN PRN Reason: SBP GREATER THAN 160 Clopidogrel Bisulfate (Plavix) 75 mg PO DAILY [facility] Last Admin: 06/05/18 12:29 Dose: Not Given Cyclobenzaprine HCl (Flexeril) 10 mg PO DAILY [facility] Last Admin: 06/05/18 13:22 Dose: 10 mg Ezetimibe (Zetia) 5 mg PO DAILY [facility] Last Admin: 06/05/18 13:22 Dose: 5 mg Famotidine (Pepcid) 20 mg PO BID [facility] Last Admin: 06/05/18 13:22 Dose: 20 mg Furosemide (Lasix) 20 mg PO DAILY [facility] Guaifenesin/Dextromethorphan (Robitussin Dm) 15 ml PO Q4H PRN PRN Reason: Cough Losartan Potassium (Cozaar) 25 mg PO DAILY [facility] Last Admin: 06/05/18 13:22 Dose: 25 mg Metoprolol Succinate (Toprol Xl) 50 mg PO DAILY [facility] Last Admin: 06/05/18 13:21 Dose: 50 mg Morphine Sulfate (Morphine) 2 mg SLOW IVP Q4H PRN PRN Reason: Moderate Chest Pain (4-6) Nitroglycerin (Nitrostat) 0.4 mg SL Q5MIN PRN PRN Reason: Chest Pain Ondansetron HCl (Zofran Odt) 4 mg PO Q6H PRN PRN Reason: Nausea/Vomiting Ondansetron HCl (Zofran) 4 mg IVP Q6H PRN PRN Reason: Nausea/Vomiting Daliresp 500 Mcg 0 each PO DAILY [facility] Potassium Chloride (Klor-Con 10) 10 meq [facility] Last Admin: 06/05/18 12:28 Dose: Not Given Senna/Docusate Sodium (Senokot S) 2 tab PO BID PRN PRN Reason: Constipation Sodium Chloride (Flush - Normal Saline) 10 ml IVF Q12HR [facility] Last Admin: 06/05/18 12:29 Dose: Not Given
[2018-06-05] MEDS: Atorvastatin Calcium 40 MG TAB PO SCH (22:00)
[2018-06-06 04:54] LABS: #Eosinphils 2.3 thou/uL (0.0-0.7); #Lymphocytes 2.2 thou/uL (1.20-3.40); #Monocytes 0.6 thou/uL (0.11-0.59); #Neutrophils 5.8 thou/uL (1.40-6.50); %Basophils 0.2 % (0.0-1.0); %Eosinophils 20.6 % (0.0-10.0); %Lymphocytes 20.3 % (21.0-51.0); %Monocytes 5.4 % (0.0-10.0); %Neutrophils 53.4 % (42.0-75.0); Hemoglobin 10.2 g/dL (12.0-16.0); Mean Corpuscular Hemoglobin 28.6 pg (27.0-31.0); Mean Corpuscular Volume 89.4 fL (78.0-98.0); Mean Platelet Volume 8.1 fL (7.4-10.4); Platelet Count 224 thou/uL (130-400); RBC Distribution Width 13.4 % (11.5-14.5); Red Blood Cell (RBC) Count 3.58 mill/uL (4.20-5.40); White Blood Cell (WBC) Count 10.9 thou/uL (4.8-10.8)
[2018-06-06 05:17] LABS: ALT (SGPT) Less than 7 U/L (8-55); AST (SGOT) 12 U/L (5-34); Albumin 3.2 g/dL (3.4-4.8); Alkaline Phosphatase 86 U/L (40-150); Anion Gap 11 mmol/L (10-20); BUN (Urea Nitrogen) 16 mg/dL (9.8-20.1); Bilirubin, Total 0.5 mg/dL (0.2-1.2); Calc. Creatinine Clearance 66 mL/min (70-130); Calcium 8.2 mg/dL (7.8-10.44); Carbon Dioxide 23 mmol/L (23-31); Chloride 109 mmol/L (98-107); Estimated GFR-MDRD 68; Glucose 110 mg/dL (83-110); Potassium 3.9 mmol/L (3.5-5.1); Protein, Total 5.2 g/dL (6.0-8.3); Sodium 139 mmol/L (136-145)
[2018-06-06] MEDS: Budesonide 0.5 MG/2 ML NEB NEB SCH (06:57)
[2018-06-06] MEDS: Arformoterol 15 MCG/2 ML NEB NEB SCH (06:58)
[2018-06-06] MEDS: Ezetimibe 10 MG TAB PO SCH (08:41)
[2018-06-06] MEDS: Losartan 25 MG TAB PO SCH (08:42)
[2018-06-06] MEDS: Clopidogrel Bisulfate 75 MG TAB PO SCH (08:42)
[2018-06-06] MEDS: Aspirin Chewable 81 MG TAB PO SCH (08:42)
[2018-06-06] MEDS: Cyclobenzaprine 10 MG TAB PO SCH (08:42)
[2018-06-06] MEDS: Potassium Chloride 10 MEQ TAB PO SCH (08:42)
[2018-06-06] MEDS: Famotidine 20 MG TAB PO SCH (08:42)
[2018-06-06] MEDS ORDERED: Furosemide 20 MG TAB PO SCH (09:00)
[2018-06-06 11:30] VITALS: BP 122/67; TEMP 99.2
--- NOTE | 2018-06-06 13:18 | EKG ---
Test Reason : Blood Pressure : / mmHG Vent. Rate : 085 BPM Atrial Rate : 085 BPM P-R Int : 130 ms QRS Dur : 084 ms QT Int : 382 ms P-R-T Axes : 065 075 048 degrees QTc Int : 454 ms Normal sinus rhythm Normal ECG When compared with ECG of 05-JUN-2018 08:48, No significant change was found Confirmed by GRIS RIOJAS, DR. Balderrama ([id number]) on 06/06/2018 1:18:12 PM Referred By: ZAIN Confirmed By:DR. Conchis LANDRY MD
--- NOTE | 2018-06-06 16:59 | DIS ---
DATE OF ADMISSION: 06/03/2018 DATE OF DISCHARGE: 06/06/2018 DISCHARGE DISPOSITION: Home. FOLLOWUP: 1. Follow up with primary care physician, Dr. Weston in 1 week. 2. Follow up with Cardiology, Dr. Daniels as scheduled. ALLERGIES: THE PATIENT IS ALLERGIC TO CODEINE, ERYTHROMYCIN, AND TRAMADOL. THE PATIENT WAS SEEN ON THE DAY OF DISCHARGE. DENIES ANY NEW COMPLAINTS. NO CHEST PAIN, SHORTNESS OF BREATH, OR PALPITATIONS. BRIEF HOSPITAL COURSE: The patient is a 72-year-old female with coronary artery disease, COPD, and hypertension, who was admitted under Cardiology Service for elective cardiac catheterization. Please refer to the history and physical by Dr. Loco Daniels for further details. The patient underwent elective cardiac catheterization on 06/03/2018, that showed 2-vessel coronary artery disease. She underwent drug-eluting stent in the proximal to mid-RCA. She underwent another cardiac catheterization on the 05 of June and underwent a stent placement to the proximal circumflex coronary artery. She was placed on IV fluids due to chronic kidney disease. Plavix has been started. She was advised to be compliant with Plavix along with low-dose aspirin. All other home medications were left unchanged. FINAL DIAGNOSES: 1. Coronary artery disease, status post stent placement to the circumflex and right coronary artery as discussed above. 2. Chronic obstructive pulmonary disease. 3. Chronic kidney disease, stage 3. Creatinine is remained stable at 0.82 with IV hydration. 4. Chronic anemia. 5. Hypertension. 6. Hyperlipidemia. PLAN: Plan was discussed with the patient and the family at the bedside. They stated understanding. Job ID: [id number]
== END 2018-06-06 13:39 | disposition home or self-care (01) | DRG 246 ==
LOC: CCL 06:03 → 2SE 08:49
PROVIDERS: ADMIT Internal Medicine Cardiovascular Disease; ATTEND Internal Medicine Cardiovascular Disease
PROC: 027036Z Dilation of Coronary Artery, One Artery with Three Drug-eluting Intraluminal Devices, Percutaneous Approach (ICD-10-PCS; principal; 2018-06-03)
PROC: 4A023N7 Measurement of Cardiac Sampling and Pressure, Left Heart, Percutaneous Approach (ICD-10-PCS; 2018-06-03)
PROC: B2111ZZ Fluoroscopy of Multiple Coronary Arteries using Low Osmolar Contrast (ICD-10-PCS; 2018-06-03)
PROC: B2151ZZ Fluoroscopy of Left Heart using Low Osmolar Contrast (ICD-10-PCS; 2018-06-03)
PROC: 3E07317 Introduction of Other Thrombolytic into Coronary Artery, Percutaneous Approach (ICD-10-PCS; 2018-06-03)
PROC: 027034Z Dilation of Coronary Artery, One Artery with Drug-eluting Intraluminal Device, Percutaneous Approach (ICD-10-PCS; 2018-06-05)
PROC: 4A023N7 Measurement of Cardiac Sampling and Pressure, Left Heart, Percutaneous Approach (ICD-10-PCS; 2018-06-05)
PROC: B2111ZZ Fluoroscopy of Multiple Coronary Arteries using Low Osmolar Contrast (ICD-10-PCS; 2018-06-05)
DX: I25.10 Atherosclerotic heart disease of native coronary artery without angina pectoris (principal); I13.0 Hypertensive heart and chronic kidney disease with heart failure and stage 1 through stage 4 chronic kidney disease, or unspecified chronic kidney disease; I50.42 Chronic combined systolic (congestive) and diastolic (congestive) heart failure; I42.9 Cardiomyopathy, unspecified; J44.9 Chronic obstructive pulmonary disease, unspecified; N18.3 Chronic kidney disease, stage 3 (moderate); D63.1 Anemia in chronic kidney disease; E78.5 Hyperlipidemia, unspecified; Z87.891 Personal history of nicotine dependence; Z88.1 Allergy status to other antibiotic agents; Z88.5 Allergy status to narcotic agent; Z79.82 Long term (current) use of aspirin; Z79.899 Other long term (current) drug therapy
CPT/HCPCS: 36415; 71046; 80048; 80053; 83735; 85025; 85347; 92928; 92977; 93005; 93010; 93454; 93458; 93798; 94640; 99152; 99153; C1725; C1769; C1874; C1887; C9600; J0583; J1644; J2001; J2250; J3010; J3246; J7620; J7626; Q9967

== ENCOUNTER 2018-10-18 11:06 | Day surgery (SDC) | payer MEDICARE, MEDICAID ==
[2018-10-18] MEDS ORDERED: Phenylephrine 2.5% Ophth Soln 5 ML BOT ONE (11:15)
== END 2018-10-18 12:30 | disposition home or self-care (01) ==
LOC: SDC 11:06
PROVIDERS: ATTEND Ophthalmology
PROC: 085K3ZZ Destruction of Left Lens, Percutaneous Approach (ICD-10-PCS; principal; 2018-10-18)
DX: H26.492 Other secondary cataract, left eye (principal); H40.9 Unspecified glaucoma; I11.9 Hypertensive heart disease without heart failure; Z88.5 Allergy status to narcotic agent; Z88.1 Allergy status to other antibiotic agents; Z79.82 Long term (current) use of aspirin; Z79.899 Other long term (current) drug therapy

== ENCOUNTER 2019-03-31 14:38 | Outpatient (CLI) | payer MEDICARE, MEDICAID ==
--- NOTE | 2019-03-31 16:09 | MMO ---
Bilateral MAMMO Bilat Screen [facility]. CLINICAL HISTORY: Patient is 73 years old and is seen for screening. The patient has the following family history of breast cancer: mother, at age 50, premenopausal. The patient has no personal history of cancer. The patient has a history of left Excisional Biopsy in 1993 - benign. VIEWS: The views performed were: bilateral craniocaudal with tomosynthesis and bilateral mediolateral oblique with tomosynthesis. FILMS COMPARED: The present examination has been compared to prior imaging studies performed at [facility] on 05/17/2005, 04/01/2014 and 03/01/2016, and at [facility] on 11/13/2012. This study has been interpreted with the assistance of computer-aided detection. MAMMOGRAM FINDINGS: The breasts are almost entirely fat. There are no suspicious masses, suspicious calcifications, or new areas of architectural distortion. IMPRESSION: THERE IS NO MAMMOGRAPHIC EVIDENCE OF MALIGNANCY. A ROUTINE FOLLOW-UP MAMMOGRAM IN 1 YEAR IS RECOMMENDED. THE RESULTS OF THIS EXAM WERE SENT TO THE PATIENT. ACR BI-RADS Category 1 - Negative MAMMOGRAPHY NOTE: 1. A negative mammogram report should not delay a biopsy if a dominant of clinically suspicious mass is present. 2. Approximately 10% to 15% of breast cancers are not detected by mammography. 3. Adenosis and dense breasts may obscure an underlying neoplasm. Reported by: JOHN GEE MD Electonically Signed: [id number]
== END 2019-03-31 14:39 | disposition home or self-care (01) ==
LOC: BICMAMMO 14:38
PROVIDERS: ATTEND Family Medicine
DX: Z12.31 Encounter for screening mammogram for malignant neoplasm of breast (principal); Z80.3 Family history of malignant neoplasm of breast
CPT/HCPCS: 77063; 77067

== ENCOUNTER 2019-06-06 13:32 | Inpatient (IN) | payer MEDICARE, MEDICAID ==
[2019-06-06 14:03] LABS: Actual Bicarbonate (HCO3a) 23.3 mEq/L (22-28); Analyzer IN Cardio ER; Base Excess (BEa) -1.1 mEq/L (-2.0 to +3.0); CO2 Tension 38.2 mmHg (35.0-45.0); Calcium, Ionized 1.25 mmol/L (1.12-1.30); Carboxyhemoglobin (COHb) 0.3 gm% (0.0-3.0); Hemoglobin (Hb) 12.4 g/dL (12.0-16.0); O2 Tension (PaO2) 213.1 mmHg (> 70.0); Potassium - ABG Lab 3.81 mmol/L (3.70-5.30)
[2019-06-06 14:07] LABS: Puncture Site RRA
[2019-06-06] MEDS ORDERED: Magnesium 2 GM/50 ML BAG (IN WATER) ONE (14:11)
[2019-06-06 14:23] LABS: #Eosinphils 0.6 thou/uL (0.0-0.7); #Lymphocytes 1.5 thou/uL (1.20-3.40); #Monocytes 0.4 thou/uL (0.11-0.59); #Neutrophils 15.2 thou/uL (1.40-6.50); %Basophils 0.1 % (0.0-1.0); %Eosinophils 3.6 % (0.0-10.0); %Lymphocytes 8.3 % (21.0-51.0); %Monocytes 2.1 % (0.0-10.0); %Neutrophils 85.9 % (42.0-75.0); Hemoglobin 12.2 g/dL (12.0-16.0); Mean Corpuscular HGB CONC 31.1 g/dL (32.0-36.0); Mean Corpuscular Hemoglobin 28.2 pg (27.0-31.0); Mean Corpuscular Volume 90.6 fL (78.0-98.0); Mean Platelet Volume 7.8 fL (7.4-10.4); Platelet Count 321 thou/uL (130-400); RBC Distribution Width 12.2 % (11.5-14.5); Red Blood Cell (RBC) Count 4.33 mill/uL (4.20-5.40); White Blood Cell (WBC) Count 17.7 thou/uL (4.8-10.8)
--- NOTE | 2019-06-06 14:45 | RAD ---
PORTABLE CHEST: HISTORY: COPD. COMPARISON: 03/06/2019 study. FINDINGS: Heart size is within normal limits for portable technique with atherosclerotic change of the aorta. The lungs are clear of any infiltrative process. IMPRESSION: No active intrathoracic disease. POS: PIPEH
[2019-06-06 14:46] LABS: ALT (SGPT) 11 U/L (8-55); AST (SGOT) 11 U/L (5-34); Albumin 4.2 g/dL (3.4-4.8); Alkaline Phosphatase 102 U/L (40-110); Anion Gap 13 mmol/L (10-20); BUN (Urea Nitrogen) 17 mg/dL (9.8-20.1); Bilirubin, Total 0.3 mg/dL (0.2-1.2); Calc. Creatinine Clearance 0 mL/min (70-130); Calcium 9.5 mg/dL (7.8-10.44); Carbon Dioxide 31 mmol/L (23-31); Chloride 105 mmol/L (98-107); Estimated GFR-MDRD 45; Globulin 2.3 g/dL (2.4-3.5); Glucose 155 mg/dL (83-110); Potassium 3.8 mmol/L (3.5-5.1); Protein, Total 6.5 g/dL (6.0-8.3); Sodium 145 mmol/L (136-145)
[2019-06-06 15:09] LABS: CKMB 2.4 ng/mL (0-6.6)
[2019-06-06 17:25] LABS: Lactic Acid 3.8 mmol/L (0.5-2.2)
[2019-06-06 17:34] LABS: Troponin I 0.183 ng/mL (< 0.028)
[2019-06-06] MEDS ORDERED: Senokot S 8.6-50 MG TAB PO PRN (17:42)
[2019-06-06] MEDS ORDERED: Acetaminophen 325 MG TAB PO PRN (17:42)
[2019-06-06] MEDS ORDERED: Ondansetron PF 4 MG/2 ML Vial IVP PRN (17:42)
[2019-06-06] MEDS ORDERED: Ondansetron ODT 4 MG TAB PO PRN (17:42)
[2019-06-06] MEDS ORDERED: HYDROcodone/Acetaminophen 5/325 mg Tablet PO PRN (17:42)
[2019-06-06] MEDS ORDERED: PROVENTIL INHALER 6.7 G (200 INHALATIONS) INH PRN (17:54)
--- NOTE | 2019-06-06 18:03 | PDOC.HHP ---
Hospitalist HPI - History of Present Illness dyspnea History of Present Illness: Case of an 73y/o female with pmhx of cad stent x4 last one on 2018, copd, chf and hypertension who comes to hospital due to dyspnea. patient refers she was on her usual state of health until abount a week ago when she started with progressive dyspnea, increase in cough and sputum production described as thick and green. patient states she visited her pcp and was tx with some cough medicine steroids and an abx which she cannot recall, she states she was doing better but today she visited her daughter house who was cleaning and her dyspnea started to get worse. patient went back to her house but the dyspnea kept progressing for which she called ems for help and was brought to the hospital. patient was treated with bipap and steroids and had some improvement of her symptoms but still felt dyspnic and weak. On ER patient was evaluated and found to have increased in troponins values for which hospitalist was called for further management and evaluation. patient denies chest pain diaphoresis, also denies fever chills or malaise does refers some palpitations Hospitalist ROS - Review of Systems All other systems reviewed; all pertinent +/- noted in HPI/Subj Hospitalist History - Past Medical History Source: patient Cardiac: reports: CAD Pulmonary: reports: congestive heart failure, COPD, hypertension - Exam General Appearance: NAD, awake alert Eye: PERRL, anicteric sclera ENT: normocephalic atraumatic, no oropharyngeal lesions, moist mucosa Neck: supple, symmetric, no JVD Heart: no murmur, no gallops, no rubs Heart - other findings: tachycardic Respiratory: no rales, no ronchi, wheezes Gastrointestinal: soft, non-tender, non-distended, normal bowel sounds, no palpable masses Extremities: no cyanosis, no clubbing, no edema Skin: normal turgor, no lesions, no rashes Neurological: cranial nerve grossly intact, normal sensation to touch, no weakness, no focal deficits Psychiatric: normal affect, normal behavior, A&O x 3 Hospitalist Results - Labs Result Diagrams: 06/06/19 14:14 06/06/19 14:14 Lab results: WBC 17.7 thou/uL (4.8-10.8) H 06/06/19 14:14 Hgb 12.2 g/dL (12.0-16.0) 06/06/19 14:14 Hct 39.2 % (36.0-47.0) 06/06/19 14:14 MCV 90.6 fL (78.0-98.0) 06/06/19 14:14 Plt Count 321 thou/uL (130-400) 06/06/19 14:14 Neutrophils % 85.9 % (42.0-75.0) H 06/06/19 14:14 ABG pH 7.40 (7.35-7.45) 06/06/19 13:55 ABG pCO2 38.2 mmHg (35.0-45.0) 06/06/19 13:55 ABG pO2 213.1 mmHg (> 70.0) H 06/06/19 13:55 Sodium 145 mmol/L (136-145) 06/06/19 14:14 Potassium 3.8 mmol/L (3.5-5.1) 06/06/19 14:14 Chloride 105 mmol/L (98-107) 06/06/19 14:14 Carbon Dioxide 31 mmol/L (23-31) 06/06/19 14:14 BUN 17 mg/dL (9.8-20.1) 06/06/19 14:14 Creatinine 1.18 mg/dL (0.6-1.1) H 06/06/19 14:14 Glucose 155 mg/dL (83-110) H 06/06/19 14:14 Lactic Acid 3.8 mmol/L (0.5-2.2) H 06/06/19 17:00 Calcium 9.5 mg/dL (7.8-10.44) 06/06/19 14:14 Total Bilirubin 0.3 mg/dL (0.2-1.2) 06/06/19 14:14 AST 11 U/L (5-34) 06/06/19 14:14 ALT 11 U/L (8-55) 06/06/19 14:14 Alkaline Phosphatase 102 U/L (40-110) 06/06/19 14:14 CK-MB (CK-2) 2.4 ng/mL (0-6.6) 06/06/19 14:14 Troponin I 0.183 ng/mL (< 0.028) H 06/06/19 17:00 B-Natriuretic Peptide 83.8 pg/mL (0-100) 06/06/19 14:14 Serum Total Protein 6.5 g/dL (6.0-8.3) 06/06/19 14:14 Albumin 4.2 g/dL (3.4-4.8) 06/06/19 14:14 - EKG Interpretation EKG: no acute st changes - Radiology Interpretation Chest x-ray Status: image reviewed by me (no effusions consolidations or infiltrates) Hospitalist H&P A/P - Problem (1) Elevated troponin I level Code(s): R79.89 - OTHER SPECIFIED ABNORMAL FINDINGS OF BLOOD CHEMISTRY Status : Acute (2) COPD exacerbation Code(s): J44.1 - CHRONIC OBSTRUCTIVE PULMONARY DISEASE W (ACUTE) EXACERBATION Status: Acute (3) CAD (coronary artery disease) Code(s): I25.10 - ATHSCL HEART DISEASE OF [place] CORONARY ARTERY W/O ANG PCTRS Status: Chronic (4) HTN (hypertension) Code(s): I10 - ESSENTIAL (PRIMARY) HYPERTENSION Status: Chronic Qualifiers: Hypertension type: essential hypertension Qualified Code(s): I10 - Essential (primary) hypertension - Plan Plan: 73y/o female with stated chf who comes to hospital due to increase dyspnea, cough and sputum production requiring bipap and high dose steroids, patient receive opd tx w/o resolution of symptoms and on evaluation was found with elevated troponins. -admited as obs -telemetry -02 supplementation -dual nebs q6hr -iv steroids -azithromycin 500 q 24rhs -serial troponins -pts train crew member consulted - likely troponin leak, nstemi type2, but due to pts history will admit to follow trend -serial troponins -contionue home meds for chronic conditons -gi / dvt prophylaxis -
[2019-06-06 19:59] VITALS: BMI 27.3
[2019-06-06] MEDS: methylPREDNISolone Sod Succ 40 MG VIAL IVP SCH ×2 (22:29→23:02)
[2019-06-06] MEDS: Azithromycin 500 MG in Sodium Chloride 0.9% 250 ML 250 ML IVPB SCH (23:00)
[2019-06-06] MEDS: Famotidine 20 MG TAB PO SCH (23:00)
[2019-06-07 04:57] LABS: #Lymphocytes 0.7 thou/uL (1.20-3.40); #Monocytes 0.1 thou/uL (0.11-0.59); #Neutrophils 9.9 thou/uL (1.40-6.50); %Basophils 0.1 % (0.0-1.0); %Eosinophils 0.1 % (0.0-10.0); %Lymphocytes 6.3 % (21.0-51.0); %Monocytes 0.9 % (0.0-10.0); %Neutrophils 92.7 % (42.0-75.0); Hemoglobin 11.6 g/dL (12.0-16.0); Mean Corpuscular HGB CONC 31.8 g/dL (32.0-36.0); Mean Corpuscular Hemoglobin 28.7 pg (27.0-31.0); Mean Corpuscular Volume 90.4 fL (78.0-98.0); Mean Platelet Volume 7.8 fL (7.4-10.4); Platelet Count 315 thou/uL (130-400); RBC Distribution Width 12.2 % (11.5-14.5); Red Blood Cell (RBC) Count 4.02 mill/uL (4.20-5.40); White Blood Cell (WBC) Count 10.6 thou/uL (4.8-10.8)
[2019-06-07 05:22] LABS: Anion Gap 17 mmol/L (10-20); BUN (Urea Nitrogen) 19 mg/dL (9.8-20.1); Calc. Creatinine Clearance 56 mL/min (70-130); Calcium 8.1 mg/dL (7.8-10.44); Carbon Dioxide 21 mmol/L (23-31); Chloride 109 mmol/L (98-107); Estimated GFR-MDRD 55; Glucose 198 mg/dL (83-110); Potassium 4.1 mmol/L (3.5-5.1); Sodium 143 mmol/L (136-145)
[2019-06-07] MEDS: methylPREDNISolone Sod Succ 40 MG VIAL IVP SCH ×4 (05:30→23:33)
[2019-06-07] MEDS: Arformoterol 15 MCG/2 ML NEB NEB SCH ×2 (06:53→19:07)
[2019-06-07 08:05] LABS: Troponin I 0.347 ng/mL (< 0.028)
[2019-06-07] MEDS: Clopidogrel Bisulfate 75 MG TAB PO SCH (08:57)
[2019-06-07] MEDS: Aspirin Chewable 81 MG TAB PO SCH (08:57)
[2019-06-07] MEDS: Ezetimibe 10 MG TAB PO SCH (08:57)
[2019-06-07] MEDS: Atorvastatin Calcium 40 MG TAB PO SCH (08:57)
[2019-06-07] MEDS: Furosemide 20 MG TAB PO SCH (08:58)
[2019-06-07] MEDS: Potassium Chloride 10 MEQ TAB PO SCH (08:58)
[2019-06-07] MEDS: Famotidine 20 MG TAB PO SCH ×2 (08:58→21:24)
[2019-06-07] MEDS: Hydrochlorothiazide 25 MG TAB PO SCH (08:58)
[2019-06-07] MEDS: Enoxaparin Sodium 40 MG/0.4 ML SYRINGE SC SCH (08:58)
[2019-06-07] MEDS: Losartan 25 MG TAB PO SCH (08:58)
[2019-06-07] MEDS ORDERED: METOPROLOL SU PO SCH (09:00)
[2019-06-07] MEDS ORDERED: Non-Formulary Item 1 EACH (Umeclidinium Brm/Vilanterol Tr [Anoro Ellipta] 1 INH) IH SCH (09:00)
[2019-06-07] MEDS ORDERED: HYDROCHLOROTHIAZ PO SCH (09:00)
[2019-06-07] MEDS ORDERED: [UNRECOGNIZED DRUG - OTHER] PO SCH (09:00)
--- NOTE | 2019-06-07 18:09 | PDOC.HOSPP ---
- Subjective Encounter Date: 06/07/19 Encounter Time: 18:00 Subjective: f/u for COPD exacerbation, elevated troponins treated with Zithromax, Solumedrol , Daliresp, Duonebs. Feels better overall. No CP currently. - Objective Vital Signs & Weight: Vital Signs (12 hours) Temp Pulse Resp BP Pulse Ox 06/07/19 15:38 99.0 F 97 15 111/53 L 94 L 06/07/19 14:35 87 16 06/07/19 11:45 98.5 F 97 16 111/53 L 94 L 06/07/19 10:55 83 16 06/07/19 07:31 99.2 F 95 24 H 117/56 L 95 06/07/19 06:54 92 12 06/07/19 06:53 92 12 Weight Weight 154 lb I&O: 06/06/19 06/07/19 06/08/19 06:59 06:59 06:59 Intake Total 450 Output Total 700 Balance -250 Result Diagrams: 06/07/19 04:42 06/07/19 04:42 Additional Labs: Laboratory Tests 06/06/19 06/06/19 06/06/19 14:14 14:14 14:14 WBC 17.7 H Neutrophils % 85.9 H Creatinine 1.18 H Lactic Acid 2.8 H Troponin I B-Natriuretic Peptide 06/06/19 06/06/19 06/06/19 14:14 14:14 17:00 WBC Neutrophils % Creatinine Lactic Acid 3.8 H Troponin I 0.047 H B-Natriuretic Peptide 83.8 06/06/19 06/06/19 06/07/19 17:00 20:05 04:42 WBC Neutrophils % Creatinine Lactic Acid Troponin I 0.183 H 0.320 H* 0.347 H* B-Natriuretic Peptide Radiology Reviewed by me: Yes (PCXR - no active disease) EKG Reviewed by me: Yes (Tele - SR) Hospitalist ROS - Medication Medications: Active Medications Generic Name Dose Route Start Last Admin Trade Name Freq PRN Reason Stop Dose Admin Acetaminophen 650 mg 06/06/19 17:42 06/07/19 05:33 Tylenol PO 650 mg Q4H PRN Administration Headache/Fever/Mild Pain (1-3) Albuterol/Ipratropium 3 ml 06/06/19 18:30 06/07/19 14:35 Duoneb NEB 3 ml [id number] YONG Administration Arformoterol Tartrate 15 mcg 06/07/19 06:30 06/07/19 06:53 Brovana NEB 15 mcg BID-RT YONG Administration Aspirin 81 mg 06/07/19 09:00 06/07/19 08:57 Aspirin Chewable PO 81 mg DAILY YONG Administration Atorvastatin Calcium 80 mg 06/07/19 09:00 06/07/19 08:57 Lipitor PO 80 mg DAILY YONG Administration Clopidogrel Bisulfate 75 mg 06/07/19 09:00 06/07/19 08:57 Plavix PO 75 mg DAILY YONG Administration Ezetimibe 5 mg 06/07/19 09:00 06/07/19 08:57 Zetia PO 5 mg DAILY YONG Administration Enoxaparin Sodium 40 mg 06/07/19 09:00 06/07/19 08:58 Lovenox SC 40 mg 0900 YONG Administration Famotidine 20 mg 06/06/19 21:00 06/07/19 08:58 Pepcid PO 20 mg BID YONG Administration Furosemide 20 mg 06/07/19 09:00 06/07/19 08:58 Lasix PO 20 mg DAILY YONG Administration Hydrochlorothiazide 12.5 mg 06/07/19 09:00 06/07/19 08:58 Hydrochlorothiazide PO 12.5 mg DAILY YONG Administration Azithromycin 500 mg/ Sodium 250 mls @ 250 mls/hr 06/06/19 20:00 06/06/19 23: 00 Chloride IVPB 250 mls Q24HR YONG Administration Losartan Potassium 25 mg 06/07/19 09:00 06/07/19 08:58 Cozaar PO 25 mg DAILY YONG Administration Methylprednisolone Sodium Succinate 40 mg 06/06/19 18:00 06/07/19 13:09 Solu-Medrol IVP 40 mg Q6HR YONG Administration Metoprolol Succinate 50 mg 06/07/19 09:00 06/07/19 08:58 Toprol Xl PO 50 mg QAM YONG Administration Potassium Chloride 10 meq 06/07/19 09:00 06/07/19 08:58 Klor-Con 10 PO 10 meq DAILY YONG Administration - Exam General Appearance: NAD, awake alert Eye: PERRL, anicteric sclera ENT: normocephalic atraumatic, no oropharyngeal lesions Neck: supple, symmetric, no JVD, no thyromegaly Heart: RRR, no murmur, no gallops, no rubs, normal peripheral pulses Respiratory: CTAB, no rales, no ronchi, normal chest expansion Gastrointestinal: soft, non-tender, non-distended, normal bowel sounds, no palpable masses Extremities: no cyanosis, no clubbing, no edema Skin: normal turgor, no lesions Neurological: cranial nerve grossly intact, no new deficit Musculoskeletal: normal tone, normal strength, no muscle wasting Psychiatric: normal affect, A&O x 3 Hosp A/P (1) Acute respiratory failure with hypoxia and hypercapnia Code(s): J96.01 - ACUTE RESPIRATORY FAILURE WITH HYPOXIA; J96.02 - ACUTE RESPIRATORY FAILURE WITH HYPERCAPNIA Status: Acute Plan: Improved with pulmonary supportive mgmt, continue O2 supplementation, Duonebs/ Solumedrol (2) COPD exacerbation Code(s): J44.1 - CHRONIC OBSTRUCTIVE PULMONARY DISEASE W (ACUTE) EXACERBATION Status: Acute Plan: Improved with pulmonary support, see above #1 (3) Elevated troponin I level Code(s): R79.89 - OTHER SPECIFIED ABNORMAL FINDINGS OF BLOOD CHEMISTRY Status : Acute Plan: ? NSTEMI Type II, continue dual anti-platelet therapy, no CP currently, await Cardiology consultation (4) JAYJAY (acute kidney injury) Code(s): N17.9 - ACUTE KIDNEY FAILURE, UNSPECIFIED Status: Acute Plan: Resolved, avoid nephrotoxic meds and limit contrast exposure (5) CAD (coronary artery disease) Code(s): I25.10 - ATHSCL HEART DISEASE OF [place] CORONARY ARTERY W/O ANG PCTRS Status: Chronic Plan: See above, (6) HTN (hypertension) Code(s): I10 - ESSENTIAL (PRIMARY) HYPERTENSION Status: Chronic Qualifiers: Hypertension type: essential hypertension Qualified Code(s): I10 - Essential (primary) hypertension - Plan continue antibiotics, PT/OT, medical social consultant, respiratory therapy, DVT proph w/ SCDs Stable currently Continue ASA/Plavix Continue Lovenox Continue Solumedrol/Duonebs/Zithromax Await Cardiology consult Check 2D echo
[2019-06-07] MEDS: Azithromycin 500 MG in Sodium Chloride 0.9% 250 ML 250 ML IVPB SCH (21:24)
[2019-06-07] MEDS: Guaifenesin DM 100-10/5 ML UDCUP PO PRN (22:24)
[2019-06-08 05:39] LABS: Anion Gap 12 mmol/L (10-20); BUN (Urea Nitrogen) 24 mg/dL (9.8-20.1); Calc. Creatinine Clearance 53 mL/min (70-130); Carbon Dioxide 27 mmol/L (23-31); Chloride 108 mmol/L (98-107); Estimated GFR-MDRD 53; Glucose 197 mg/dL (83-110); Potassium 3.5 mmol/L (3.5-5.1); Sodium 143 mmol/L (136-145)
[2019-06-08] MEDS: methylPREDNISolone Sod Succ 40 MG VIAL IVP SCH ×2 (05:43→12:01)
[2019-06-08] MEDS: Arformoterol 15 MCG/2 ML NEB NEB SCH ×2 (06:37→19:06)
[2019-06-08] MEDS: Hydrochlorothiazide 25 MG TAB PO SCH (09:28)
[2019-06-08] MEDS: Aspirin Chewable 81 MG TAB PO SCH (09:29)
[2019-06-08] MEDS: Clopidogrel Bisulfate 75 MG TAB PO SCH (09:29)
[2019-06-08] MEDS: Famotidine 20 MG TAB PO SCH ×2 (09:29→21:28)
[2019-06-08] MEDS: Atorvastatin Calcium 40 MG TAB PO SCH (09:29)
[2019-06-08] MEDS: Ezetimibe 10 MG TAB PO SCH (09:29)
[2019-06-08] MEDS: Losartan 25 MG TAB PO SCH (09:29)
[2019-06-08] MEDS: Furosemide 20 MG TAB PO SCH (09:29)
[2019-06-08] MEDS: Potassium Chloride 10 MEQ TAB PO SCH (09:30)
[2019-06-08] MEDS: Guaifenesin DM 100-10/5 ML UDCUP PO PRN ×2 (09:35→21:34)
--- NOTE | 2019-06-08 15:27 | PDOC.HOSPP ---
- Subjective Encounter Date: 06/08/19 Encounter Time: 15:20 Subjective: f/u for elevated troponins, COPD exacerbation. States feeling ok and no recurrent CP. - Objective Vital Signs & Weight: Vital Signs (12 hours) Temp Pulse Resp BP Pulse Ox 06/08/19 14:16 100 18 06/08/19 12:00 99.1 F 100 18 126/60 94 L 06/08/19 10:57 95 20 06/08/19 07:30 98.3 F 109 H 20 126/58 L 94 L 06/08/19 06:37 100 12 06/08/19 03:29 98.3 F 96 16 120/56 L 95 Weight Weight 155 lb 8 oz I&O: 06/07/19 06/08/19 06/09/19 06:59 06:59 06:59 Intake Total 450 1320 241 Output Total 700 850 Balance -250 470 241 Result Diagrams: 06/07/19 04:42 06/08/19 04:55 Additional Labs: Laboratory Tests 06/06/19 06/06/19 06/06/19 14:14 14:14 14:14 WBC 17.7 H Neutrophils % 85.9 H Creatinine 1.18 H Lactic Acid 2.8 H Troponin I B-Natriuretic Peptide 06/06/19 06/06/19 06/06/19 14:14 14:14 17:00 WBC Neutrophils % Creatinine Lactic Acid 3.8 H Troponin I 0.047 H B-Natriuretic Peptide 83.8 06/06/19 06/06/19 06/07/19 17:00 20:05 04:42 WBC Neutrophils % Creatinine Lactic Acid Troponin I 0.183 H 0.320 H* 0.347 H* B-Natriuretic Peptide EKG Reviewed by me: Yes (Tele - SR) Hospitalist ROS - Medication Medications: Active Medications Generic Name Dose Route Start Last Admin Trade Name Freq PRN Reason Stop Dose Admin Acetaminophen 650 mg 06/06/19 17:42 06/07/19 05:33 Tylenol PO 650 mg Q4H PRN Administration Headache/Fever/Mild Pain (1-3) Albuterol/Ipratropium 3 ml 06/06/19 18:30 06/08/19 14:16 Duoneb NEB 3 ml [id number] YONG Administration Arformoterol Tartrate 15 mcg 06/07/19 06:30 06/08/19 06:37 Brovana NEB 15 mcg BID-RT YONG Administration Aspirin 81 mg 06/07/19 09:00 06/08/19 09:29 Aspirin Chewable PO 81 mg DAILY YONG Administration Atorvastatin Calcium 80 mg 06/07/19 09:00 06/08/19 09:29 Lipitor PO 80 mg DAILY YONG Administration Clopidogrel Bisulfate 75 mg 06/07/19 09:00 06/08/19 09:29 Plavix PO 75 mg DAILY YONG Administration Ezetimibe 5 mg 06/07/19 09:00 06/08/19 09:29 Zetia PO 5 mg DAILY YONG Administration Enoxaparin Sodium 40 mg 06/07/19 09:00 06/07/19 08:58 Lovenox SC 40 mg 0900 YONG Administration Famotidine 20 mg 06/06/19 21:00 06/08/19 09:29 Pepcid PO 20 mg BID YONG Administration Furosemide 20 mg 06/07/19 09:00 06/08/19 09:29 Lasix PO 20 mg DAILY YONG Administration Guaifenesin/Dextromethorphan 15 ml 06/06/19 17:42 06/08/19 09:35 Robitussin Dm PO 15 ml Q4H PRN Administration Cough Hydrochlorothiazide 12.5 mg 06/07/19 09:00 06/08/19 09:28 Hydrochlorothiazide PO 12.5 mg DAILY YONG Administration Azithromycin 500 mg/ Sodium 250 mls @ 250 mls/hr 06/06/19 20:00 06/07/19 21: 24 Chloride IVPB 250 mls Q24HR YONG Administration Losartan Potassium 25 mg 06/07/19 09:00 06/08/19 09:29 Cozaar PO 25 mg DAILY YONG Administration Methylprednisolone Sodium Succinate 40 mg 06/06/19 18:00 06/08/19 12:01 Solu-Medrol IVP 40 mg Q6HR YONG Administration Metoprolol Succinate 50 mg 06/07/19 09:00 06/08/19 09:30 Toprol Xl PO 50 mg QAM YONG Administration Potassium Chloride 10 meq 06/07/19 09:00 06/08/19 09:30 Klor-Con 10 PO 10 meq DAILY YONG Administration - Exam General Appearance: NAD, awake alert Eye: PERRL, anicteric sclera ENT: normocephalic atraumatic, no oropharyngeal lesions Neck: supple, symmetric, no JVD, no thyromegaly Heart: RRR, no murmur, no gallops, no rubs, normal peripheral pulses Respiratory: CTAB, no wheezes, no rales, no ronchi Gastrointestinal: soft, non-tender, non-distended, normal bowel sounds, no palpable masses Extremities: no cyanosis, no clubbing Skin: normal turgor, no lesions Neurological: cranial nerve grossly intact, no new deficit Musculoskeletal: normal tone, normal strength Psychiatric: normal affect, A&O x 3 Hosp A/P (1) Acute respiratory failure with hypoxia and hypercapnia Code(s): J96.01 - ACUTE RESPIRATORY FAILURE WITH HYPOXIA; J96.02 - ACUTE RESPIRATORY FAILURE WITH HYPERCAPNIA Status: Acute Plan: Continue pulmonary support, continue Duonebs/Zithromax/Brovana (2) COPD exacerbation Code(s): J44.1 - CHRONIC OBSTRUCTIVE PULMONARY DISEASE W (ACUTE) EXACERBATION Status: Acute Plan: See #1 above (3) Elevated troponin I level Code(s): R79.89 - OTHER SPECIFIED ABNORMAL FINDINGS OF BLOOD CHEMISTRY Status : Acute Plan: NSTEMI likely Type II, Cardiology consult pending, continue ASA/Plavix, Lipitor (4) JAYJAY (acute kidney injury) Code(s): N17.9 - ACUTE KIDNEY FAILURE, UNSPECIFIED Status: Acute Plan: Mild, resolving (5) CAD (coronary artery disease) Code(s): I25.10 - ATHSCL HEART DISEASE OF [place] CORONARY ARTERY W/O ANG PCTRS Status: Chronic Plan: See above (6) HTN (hypertension) Code(s): I10 - ESSENTIAL (PRIMARY) HYPERTENSION Status: Chronic Qualifiers: Hypertension type: essential hypertension Qualified Code(s): I10 - Essential (primary) hypertension - Plan DVT proph w/SCDs Stable currently Continue ASA/Plavix Continue Lipitor Continue Prednisone/Duonebs/Zithromax Await Cardiology consult Check 2D echo pending
[2019-06-08] MEDS ORDERED: predniSONE 20 MG TAB PO SCH (15:45)
[2019-06-08] MEDS: Enoxaparin Sodium 40 MG/0.4 ML SYRINGE SC SCH (15:48)
[2019-06-08] MEDS: Azithromycin 500 MG in Sodium Chloride 0.9% 250 ML 250 ML IVPB SCH (21:29)
--- NOTE | 2019-06-09 00:22 | CON ---
DATE OF CONSULTATION: HISTORY OF PRESENT ILLNESS: Lena Lopez is a 73-year-old white female I have followed for many years. Her most recent problems were approximately 1 year ago when she was hospitalized in April 2018 with COPD exacerbation. She then underwent cardiac PET scan afterwards and this revealed proximal inferior wall ischemia. This was performed due to slightly elevated troponin I in April 2018 when she was hospitalized with COPD exacerbation. She underwent catheterization on 06/03/2018. There was mild inferior hypokinesis with ejection fraction of 50% to 55%. There was a 20% mid LAD, 20% left main. There was a 90% proximal circumflex, which was a large vessel. The right coronary artery had 80% to 90% proximal stenosis and a 60% mid stenosis. On the day of catheterization, she underwent placement of Synergy 3.5 x 18, 3.5 x 32, and 4.0 x 20 in the mid to proximal right coronary artery. 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 When she was seen 3 months later in the office, she states that her shortness of breath had dramatically improved and she has much more energy after the stent placement. She was last seen in the office on 05/16/2019. She continued to deny any dyspnea on exertion, PND, or orthopnea. She now presents complaining of increased shortness of breath, cough productive of yellow sputum and has been in the hospital for several days. She may have 1 or 2 seconds of chest discomfort at a time, but in the past, she has not had significant chest pain even with significant coronary artery stenosis. Her troponin I has increased to 0.347. PAST MEDICAL HISTORY: Hyperlipidemia, hypertension, coronary artery disease, COPD. PAST SURGICAL HISTORY: Neck surgery twice, carpal tunnel release, removal of cyst from the left breast. MEDICATIONS: 1. Albuterol 2 puffs q.4 hours p.r.n. 2. Ricardo aspirin 81 daily. 3. Clopidogrel 75 daily. 4. Atorvastatin 80 nightly. 5. Flexeril 10 mg daily. 6. Zetia 5 mg daily. 7. Famotidine 20 daily. 8. Furosemide 20 mg daily. 9. Claritin 10 mg p.r.n. 10. DuoNeb t.i.d. 11. Losartan 100 mg daily. 12. Metoprolol/hydrochlorothiazide 50/12.5 daily. 13. KCl 10 mEq daily. 14. Prednisone 10 daily. ALLERGIES: TRAMADOL, ERYTHROMYCIN, AND CODEINE. SOCIAL HISTORY: She stopped smoking 10 years ago. PHYSICAL EXAMINATION: VITAL SIGNS: Blood pressure 149/66, pulse of 99. HEENT: PERRL. NECK: Supple. CHEST: Reveals distant breath sounds with faint wheezing. CARDIAC: S1 and S2 normal without any S3, S4, murmurs. ABDOMEN: Normal bowel sounds without tenderness or organomegaly. EXTREMITIES: Reveal 1+ pretibial edema. NEUROLOGIC: Grossly intact. SKIN: Warm and dry. LABORATORY DATA: EKG reveals sinus tachycardia with no acute changes. It is of note that in looking at the monitored strips that during this admission she has developed deeply inverted T-waves. Sodium 143, potassium 3.5, chloride 108, carbon dioxide 27, BUN 24, creatinine 1.02. As noted above, troponin I is up to 0.347. Her last LDL was 54 earlier last month. Hemoglobin 11.6, hematocrit 36.4, and white count 10,600. IMPRESSION: 1. Chronic obstructive pulmonary disease exacerbation. 2. Increased shortness of breath with development of T-wave inversion on the monitor and slightly elevated troponin I. 3. Status post drug-eluting stents placed in the mid to proximal right coronary artery and proximal circumflex. 4. Nonischemic cardiomyopathy with ejection fraction improved from 30%-35% to 45%-50% to 50%-55%. 5. Hypercholesterolemia, under good control. 6. Hypertension. 7. Positive family history. 8. Former smoker. PLAN: The patient william continue to be treated for COPD exacerbation. EKG will be obtained with these T-wave changes on the monitor. She certainly may need to undergo repeat catheterization prior to discharge. She will be kept n.p.o. and this will be reassessed in the morning. Job ID: [id number] [facility]
[2019-06-09] MEDS: Arformoterol 15 MCG/2 ML NEB NEB SCH ×2 (06:10→18:33)
--- NOTE | 2019-06-09 08:26 | PDOC.HOSPP ---
- Subjective Encounter Date: 06/09/19 Encounter Time: 12:00 Subjective: Patient with continued SOB/wheezing but much better than on admission. No chest pain currently. - Objective Vital Signs & Weight: Vital Signs (12 hours) Temp Pulse Resp BP BP Pulse Ox 06/09/19 07:25 98.2 F 90 18 142/63 H 96 06/09/19 06:10 89 16 06/09/19 03:55 98.4 F 93 18 146/67 H 97 06/09/19 02:44 103 H 16 100 06/08/19 23:34 97.9 F 100 16 145/65 H 97 06/08/19 22:40 89 18 97 Weight Weight 155 lb 8 oz I&O: 06/08/19 06/09/19 06/10/19 06:59 06:59 06:59 Intake Total 1320 1541 Output Total 850 Balance 470 1541 Result Diagrams: 06/07/19 04:42 06/08/19 04:55 Hospitalist ROS - Review of Systems Constitutional: denies: fever, chills Respiratory: reports: cough, shortness of breath, wheezing Cardiovascular: denies: chest pain, palpitations Gastrointestinal: denies: nausea, vomiting, abdominal pain Genitourinary: denies: dysuria, hematuria - Medication Medications: Active Medications Generic Name Dose Route Start Last Admin Trade Name Freq PRN Reason Stop Dose Admin Acetaminophen 650 mg 06/06/19 17:42 06/07/19 05:33 Tylenol PO 650 mg Q4H PRN Administration Headache/Fever/Mild Pain (1-3) Albuterol/Ipratropium 3 ml 06/06/19 18:30 06/09/19 06:10 Duoneb NEB 3 ml [id number] YONG Administration Arformoterol Tartrate 15 mcg 06/07/19 06:30 06/09/19 06:10 Brovana NEB 15 mcg BID-RT YONG Administration Aspirin 81 mg 06/07/19 09:00 06/08/19 09:29 Aspirin Chewable PO 81 mg DAILY YONG Administration Atorvastatin Calcium 80 mg 06/07/19 09:00 06/08/19 09:29 Lipitor PO 80 mg DAILY YONG Administration Clopidogrel Bisulfate 75 mg 06/07/19 09:00 06/08/19 09:29 Plavix PO 75 mg DAILY YONG Administration Ezetimibe 5 mg 06/07/19 09:00 06/08/19 09:29 Zetia PO 5 mg DAILY YONG Administration Enoxaparin Sodium 40 mg 06/07/19 09:00 06/08/19 15:48 Lovenox SC Not Given 0900 [facility] Famotidine 20 mg 06/06/19 21:00 06/08/19 21:28 Pepcid PO 20 mg BID YONG Administration Furosemide 20 mg 06/07/19 09:00 06/08/19 09:29 Lasix PO 20 mg DAILY YONG Administration Guaifenesin/Dextromethorphan 15 ml 06/06/19 17:42 06/08/19 21:34 Robitussin Dm PO 15 ml Q4H PRN Administration Cough Hydrochlorothiazide 12.5 mg 06/07/19 09:00 06/08/19 09:28 Hydrochlorothiazide PO 12.5 mg DAILY YONG Administration Azithromycin 500 mg/ Sodium 250 mls @ 250 mls/hr 06/06/19 20:00 06/08/19 21: 29 Chloride IVPB 250 mls Q24HR YONG Administration Losartan Potassium 25 mg 06/07/19 09:00 06/08/19 09:29 Cozaar PO 25 mg DAILY YONG Administration Metoprolol Succinate 50 mg 06/07/19 09:00 06/08/19 09:30 Toprol Xl PO 50 mg QAM YONG Administration Potassium Chloride 10 meq 06/07/19 09:00 06/08/19 09:30 Klor-Con 10 PO 10 meq DAILY YONG Administration - Exam General Appearance: NAD, awake alert ENT: moist mucosa Heart: RRR, no murmur, no gallops, no rubs Respiratory: no rales, no ronchi Respiratory - other findings: mild wheezing and tight breath sounds bilaterally , no inc WOB Gastrointestinal: soft, non-tender, non-distended, normal bowel sounds Psychiatric: normal affect, normal behavior, A&O x 3 Hosp A/P (1) COPD exacerbation Code(s): J44.1 - CHRONIC OBSTRUCTIVE PULMONARY DISEASE W (ACUTE) EXACERBATION Status: Acute (2) NSTEMI (non-ST elevated myocardial infarction) Code(s): I21.4 - NON-ST ELEVATION (NSTEMI) MYOCARDIAL INFARCTION Status: Acute (3) Acute respiratory failure with hypoxia and hypercapnia Code(s): J96.01 - ACUTE RESPIRATORY FAILURE WITH HYPOXIA; J96.02 - ACUTE RESPIRATORY FAILURE WITH HYPERCAPNIA Status: Acute (4) JAYJAY (acute kidney injury) Code(s): N17.9 - ACUTE KIDNEY FAILURE, UNSPECIFIED Status: Acute (5) CAD (coronary artery disease) Code(s): I25.10 - ATHSCL HEART DISEASE OF [place] CORONARY ARTERY W/O ANG PCTRS Status: Chronic (6) HTN (hypertension) Code(s): I10 - ESSENTIAL (PRIMARY) HYPERTENSION Status: Chronic Qualifiers: Hypertension type: essential hypertension Qualified Code(s): I10 - Essential (primary) hypertension - Plan COPD exacerbation- on oxygen, nebs, steroids, azithromycin NSTEMI- Dr. Daniels following, may need cath after COPD stabilized. Will convert to inpatient
[2019-06-09] MEDS: Furosemide 20 MG TAB PO SCH (09:08)
[2019-06-09] MEDS: Atorvastatin Calcium 40 MG TAB PO SCH (09:08)
[2019-06-09] MEDS: predniSONE 20 MG TAB PO SCH (09:08)
[2019-06-09] MEDS: Losartan 25 MG TAB PO SCH (09:08)
[2019-06-09] MEDS: Aspirin Chewable 81 MG TAB PO SCH (09:08)
[2019-06-09] MEDS: Ezetimibe 10 MG TAB PO SCH (09:09)
[2019-06-09] MEDS: Famotidine 20 MG TAB PO SCH ×2 (09:09→20:09)
[2019-06-09] MEDS: Hydrochlorothiazide 25 MG TAB PO SCH (09:09)
[2019-06-09] MEDS: Clopidogrel Bisulfate 75 MG TAB PO SCH (09:09)
[2019-06-09] MEDS: Potassium Chloride 10 MEQ TAB PO SCH (09:10)
[2019-06-09] MEDS: Guaifenesin DM 100-10/5 ML UDCUP PO PRN (09:11)
[2019-06-09] MEDS: Enoxaparin Sodium 40 MG/0.4 ML SYRINGE SC SCH (11:30)
[2019-06-09] MEDS ORDERED: DALIRESP 500 MCG PO SCH (11:45)
[2019-06-09] MEDS: (Roflumilast [Daliresp] 500 MCG) PO SCH ×3 (12:22→14:20)
[2019-06-09] MEDS: Azithromycin 500 MG in Sodium Chloride 0.9% 250 ML 250 ML IVPB SCH (20:09)
[2019-06-10] MEDS: Arformoterol 15 MCG/2 ML NEB NEB SCH ×2 (07:21→19:14)
--- NOTE | 2019-06-10 08:52 | PDOC.HOSPP ---
- Subjective Encounter Date: 06/10/19 Encounter Time: 11:00 Subjective: Patient with continued cough, but improved breathing and less wheezing. No chest pain. - Objective Vital Signs & Weight: Vital Signs (12 hours) Temp Pulse Resp BP Pulse Ox 06/10/19 08:00 97.9 F 83 14 157/65 H 100 06/10/19 07:23 97 06/10/19 07:22 82 16 97 06/10/19 07:21 82 16 97 06/10/19 03:23 98.4 F 80 20 163/65 H 100 06/10/19 02:38 91 16 99 06/09/19 22:36 107 H 16 97 Weight Weight 153 lb 6.4 oz I&O: 06/09/19 06/10/19 06/11/19 06:59 06:59 06:59 Intake Total 1541 1600 Balance 1541 1600 Result Diagrams: 06/07/19 04:42 06/08/19 04:55 Hospitalist ROS - Review of Systems Constitutional: denies: fever, chills Respiratory: reports: cough, shortness of breath. denies: wheezing Cardiovascular: denies: chest pain, palpitations Gastrointestinal: denies: nausea, vomiting, abdominal pain - Medication Medications: Active Medications Generic Name Dose Route Start Last Admin Trade Name Freq PRN Reason Stop Dose Admin Acetaminophen 650 mg 06/06/19 17:42 06/07/19 05:33 Tylenol PO 650 mg Q4H PRN Administration Headache/Fever/Mild Pain (1-3) Albuterol/Ipratropium 3 ml 06/06/19 18:30 06/10/19 07:22 Duoneb NEB 3 ml [id number] YONG Administration Arformoterol Tartrate 15 mcg 06/07/19 06:30 06/10/19 07:21 Brovana NEB 15 mcg BID-RT YONG Administration Aspirin 81 mg 06/07/19 09:00 06/09/19 09:08 Aspirin Chewable PO 81 mg DAILY YONG Administration Atorvastatin Calcium 80 mg 06/07/19 09:00 06/09/19 09:08 Lipitor PO 80 mg DAILY YONG Administration Clopidogrel Bisulfate 75 mg 06/07/19 09:00 06/09/19 09:09 Plavix PO 75 mg DAILY YONG Administration Ezetimibe 5 mg 06/07/19 09:00 06/09/19 09:09 Zetia PO 5 mg DAILY YONG Administration Enoxaparin Sodium 40 mg 06/07/19 09:00 06/09/19 11:30 Lovenox SC Not Given 09 [facility] Famotidine 20 mg 06/06/19 21:00 06/09/19 20:09 Pepcid PO 20 mg BID YONG Administration Furosemide 20 mg 06/07/19 09:00 06/09/19 09:08 Lasix PO 20 mg DAILY YONG Administration Guaifenesin/Dextromethorphan 15 ml 06/06/19 17:42 06/09/19 09:11 Robitussin Dm PO 15 ml Q4H PRN Administration Cough Hydrochlorothiazide 12.5 mg 06/07/19 09:00 06/09/19 09:09 Hydrochlorothiazide PO 12.5 mg DAILY YONG Administration Azithromycin 500 mg/ Sodium 250 mls @ 250 mls/hr 06/06/19 20:00 06/09/19 20: 09 Chloride IVPB 250 mls Q24HR YONG Administration Losartan Potassium 25 mg 06/07/19 09:00 06/09/19 09:08 Cozaar PO 25 mg DAILY YONG Administration Metoprolol Succinate 50 mg 06/07/19 09:00 06/09/19 09:10 Toprol Xl PO 50 mg QAM YONG Administration Potassium Chloride 10 meq 06/07/19 09:00 06/09/19 09:10 Klor-Con 10 PO 10 meq DAILY YONG Administration Prednisone 40 mg 06/09/19 08:00 06/09/19 09:08 Prednisone PO 40 mg QAM-WM YONG Administration - Exam General Appearance: NAD, awake alert ENT: moist mucosa Heart: RRR, no murmur, no gallops, no rubs Respiratory: no wheezes, no rales, no ronchi Respiratory - other findings: improved airmovement bilaterally, less tight, still c coughing fits Gastrointestinal: soft, non-tender, non-distended, normal bowel sounds Psychiatric: normal affect, normal behavior, A&O x 3 Hosp A/P (1) COPD exacerbation Code(s): J44.1 - CHRONIC OBSTRUCTIVE PULMONARY DISEASE W (ACUTE) EXACERBATION Status: Acute (2) NSTEMI (non-ST elevated myocardial infarction) Code(s): I21.4 - NON-ST ELEVATION (NSTEMI) MYOCARDIAL INFARCTION Status: Acute (3) Acute respiratory failure with hypoxia and hypercapnia Code(s): J96.01 - ACUTE RESPIRATORY FAILURE WITH HYPOXIA; J96.02 - ACUTE RESPIRATORY FAILURE WITH HYPERCAPNIA Status: Acute (4) JAYJAY (acute kidney injury) Code(s): N17.9 - ACUTE KIDNEY FAILURE, UNSPECIFIED Status: Acute (5) CAD (coronary artery disease) Code(s): I25.10 - ATHSCL HEART DISEASE OF [place] CORONARY ARTERY W/O ANG PCTRS Status: Chronic (6) HTN (hypertension) Code(s): I10 - ESSENTIAL (PRIMARY) HYPERTENSION Status: Chronic Qualifiers: Hypertension type: essential hypertension Qualified Code(s): I10 - Essential (primary) hypertension - Plan COPD exacerbation- on oxygen, nebs, steroids, azithromycin NSTEMI- Dr. Daniels following, plans on cath after COPD stabilized.
[2019-06-10] MEDS: predniSONE 20 MG TAB PO SCH (09:26)
[2019-06-10] MEDS: Aspirin Chewable 81 MG TAB PO SCH (09:27)
[2019-06-10] MEDS: Atorvastatin Calcium 40 MG TAB PO SCH (09:27)
[2019-06-10] MEDS: Potassium Chloride 10 MEQ TAB PO SCH (09:30)
[2019-06-10] MEDS: Famotidine 20 MG TAB PO SCH ×2 (09:32→21:37)
[2019-06-10] MEDS: Clopidogrel Bisulfate 75 MG TAB PO SCH (09:32)
[2019-06-10] MEDS: Guaifenesin DM 100-10/5 ML UDCUP PO PRN ×2 (09:32→22:24)
[2019-06-10] MEDS: Furosemide 20 MG TAB PO SCH (09:32)
[2019-06-10] MEDS: Ezetimibe 10 MG TAB PO SCH (09:33)
[2019-06-10] MEDS: DALIRESP 500 MCG PO SCH (09:33)
[2019-06-10] MEDS: Hydrochlorothiazide 25 MG TAB PO SCH (09:33)
[2019-06-10] MEDS: Losartan 25 MG TAB PO SCH (09:34)
[2019-06-10] MEDS: Enoxaparin Sodium 40 MG/0.4 ML SYRINGE SC SCH (10:12)
[2019-06-10] MEDS ORDERED: Communication Order-Pharmacy FS SCH (18:00)
[2019-06-10] MEDS ORDERED: Magnesium Sulfate 3 GM in Sodium Chloride 0.9% 100 ML IVPB SCH (20:00)
[2019-06-10] MEDS: methylPREDNISolone Sod Succ 40 MG VIAL IVP SCH (21:36)
[2019-06-10] MEDS: Azithromycin 500 MG in Sodium Chloride 0.9% 250 ML 250 ML IVPB SCH (21:36)
--- NOTE | 2019-06-11 01:02 | CON ---
DATE OF CONSULTATION: 06/10/2019 HISTORY OF PRESENT ILLNESS: Ms. Lopez is a pleasant 73-year-old. She quit smoking 11 years ago. She has COPD. She is admitted on the with COPD exacerbation. I was consulted manjinder for her COPD. PAST MEDICAL HISTORY: Remarkable for: 1. Coronary artery disease with stenting in the past. 2. History of hypertension. 3. History of congestive heart failure. 4. History of lipid disorder. 5. History of cervical spine surgery. 6. History of carpal tunnel surgery. 7. History of a breast cyst removed. MEDICATIONS: Have been reviewed. SOCIAL HISTORY: She is not smoking, not drinking. FAMILY HISTORY: Negative for lung disease in early age. REVIEW OF SYSTEMS: Ten point review of systems completed, otherwise negative. ALLERGIES: SHE REPORTS ALLERGIES TRAMADOL, ERYTHROMYCIN, AND CODEINE. PHYSICAL EXAMINATION: VITAL SIGNS: She is afebrile. Heart rate is 100, respiratory rate is 19, oximetry is 97 on 2 L, blood pressure 115/57. HEAD AND NECK: Unremarkable. LUNGS: Remarkable for end-expiratory wheezes. HEART: Regular rhythm. No S3. ABDOMEN: Soft and nontender. EXTREMITIES: Without clubbing, cyanosis, or edema. NEUROLOGICAL: Nonfocal. IMAGING STUDIES: Chest x-ray on the showed no infiltrates. IMPRESSION AND PLAN: 1. Chronic obstructive pulmonary disease exacerbation, slowly resolving, likely triggered by viral process. 2. Coronary artery disease, tentatively on schedule for catheterization. I have asked her to lay down in the morning flat in bed to see how she does. If she cannot assume the supine position, we could always put her on BiPAP during the cath. I will be happy to follow with the other physicians. I would put her back on IV steroids, give her some IV magnesium tonight and continue with every 4-hour nebulizer treatments. This is a 50 minute consult, with greater than 50% of time spent on unit coordinating care. Job ID: [id number] MTDD
[2019-06-11] MEDS: methylPREDNISolone Sod Succ 40 MG VIAL IVP SCH ×2 (02:28→09:58)
[2019-06-11 05:21] LABS: Anion Gap 13 mmol/L (10-20); BUN (Urea Nitrogen) 35 mg/dL (9.8-20.1); Calc. Creatinine Clearance 49 mL/min (70-130); Calcium 8.3 mg/dL (7.8-10.44); Carbon Dioxide 29 mmol/L (23-31); Chloride 103 mmol/L (98-107); Estimated GFR-MDRD 49; Glucose 198 mg/dL (83-110); Sodium 141 mmol/L (136-145)
[2019-06-11] MEDS: Aspirin Chewable 81 MG TAB PO SCH (05:55)
[2019-06-11] MEDS: Clopidogrel Bisulfate 75 MG TAB PO SCH (05:56)
[2019-06-11] MEDS: Famotidine 20 MG TAB PO SCH ×2 (05:56→20:49)
[2019-06-11] MEDS: Losartan 25 MG TAB PO SCH (05:56)
[2019-06-11] MEDS: Ezetimibe 10 MG TAB PO SCH (05:56)
[2019-06-11] MEDS: Atorvastatin Calcium 40 MG TAB PO SCH (05:56)
[2019-06-11] MEDS: DALIRESP 500 MCG PO SCH (05:58)
[2019-06-11] MEDS ORDERED: Sodium Chloride 0.9% 1,000 ML IV SCH ×2 (06:00→07:57)
[2019-06-11] MEDS ORDERED: Heparin 10,000 UNITS/1 ML VIAL ONE (06:33)
[2019-06-11] MEDS ORDERED: Heparin (Artline) 1,000 ML ONE (06:34)
[2019-06-11] MEDS ORDERED: Lidocaine 1% (PF) 30 ML VIAL ONE (06:34)
[2019-06-11] MEDS ORDERED: Midazolam HCl 2 mg/2 ml Vial ONE (07:06)
[2019-06-11] MEDS ORDERED: Fentanyl 100 MCG/2 ML VIAL ONE (07:06)
[2019-06-11] MEDS ORDERED: Protamine Sulfate 50 MG/5 ML VIAL ONE (07:29)
[2019-06-11] MEDS ORDERED: Nitroglycerin 0.4 MG TAB (25 Tab Bottle) SL PRN (07:56)
[2019-06-11] MEDS ORDERED: Acetaminophen/Codeine 30-300mg Tablet PO PRN ×2 (07:56)
[2019-06-11] MEDS ORDERED: Sodium Chloride 0.9% 200 ML IV PRN (07:56)
--- NOTE | 2019-06-11 08:49 | PDOC.HOSPP ---
- Subjective Encounter Date: 06/11/19 Encounter Time: 11:00 Subjective: Patient with good cath results yesterday. Persistent cough. No chest pain. Some wheezing. - Objective Vital Signs & Weight: Vital Signs (12 hours) Temp Pulse Resp BP Pulse Ox 06/11/19 08:07 90 16 98 06/11/19 08:00 96 06/11/19 02:30 98.2 F 93 18 140/63 96 06/11/19 01:56 93 18 97 06/10/19 22:36 108 H 20 96 Weight Weight 153 lb 6.4 oz I&O: 06/10/19 06/11/19 06/12/19 06:59 06:59 06:59 Intake Total 1600 200 Balance 1600 200 Result Diagrams: 06/07/19 04:42 06/11/19 04:41 Hospitalist ROS - Review of Systems Constitutional: denies: fever, chills Respiratory: reports: cough, shortness of breath, wheezing Cardiovascular: denies: chest pain, palpitations, orthopnea Gastrointestinal: denies: nausea, vomiting, abdominal pain Genitourinary: denies: dysuria, hematuria - Medication Medications: Active Medications Generic Name Dose Route Start Last Admin Trade Name Freq PRN Reason Stop Dose Admin Acetaminophen 650 mg 06/06/19 17:42 06/07/19 05:33 Tylenol PO 650 mg Q4H PRN Administration Headache/Fever/Mild Pain (1-3) Albuterol/Ipratropium 3 ml 06/06/19 18:30 06/11/19 08:07 Duoneb NEB 3 ml [id number] YONG Administration Aspirin 81 mg 06/07/19 09:00 06/11/19 05:55 Aspirin Chewable PO 81 mg DAILY YONG Administration Atorvastatin Calcium 80 mg 06/07/19 09:00 06/11/19 05:56 Lipitor PO 80 mg DAILY YONG Administration Clopidogrel Bisulfate 75 mg 06/07/19 09:00 06/11/19 05:56 Plavix PO 75 mg DAILY YONG Administration Ezetimibe 5 mg 06/07/19 09:00 06/11/19 05:56 Zetia PO 5 mg DAILY YONG Administration Famotidine 20 mg 06/06/19 21:00 06/11/19 05:56 Pepcid PO 20 mg BID YONG Administration Furosemide 20 mg 06/07/19 09:00 06/10/19 09:32 Lasix PO 20 mg DAILY YONG Administration Guaifenesin/Dextromethorphan 15 ml 06/06/19 17:42 06/10/19 22:24 Robitussin Dm PO 15 ml Q4H PRN Administration Cough Azithromycin 500 mg/ Sodium 250 mls @ 250 mls/hr 06/06/19 20:00 06/10/19 21: 36 Chloride IVPB 250 mls Q24HR YONG Administration Losartan Potassium 25 mg 06/07/19 09:00 06/11/19 05:56 Cozaar PO 25 mg DAILY YONG Administration Methylprednisolone Sodium Succinate 40 mg 06/10/19 20:00 06/11/19 02:28 Solu-Medrol IVP 40 mg 0200,0800,1400,2000 YONG Administration Metoprolol Succinate 50 mg 06/07/19 09:00 06/11/19 05:56 Toprol Xl PO 50 mg QAM YONG Administration Daliresp 500 Mcg 0 each 06/10/19 09:00 06/11/19 05:58 PO 1 each DAILY YONG Administration Potassium Chloride 10 meq 06/07/19 09:00 06/10/19 09:30 Klor-Con 10 PO 10 meq DAILY YONG Administration - Exam General Appearance: NAD, awake alert ENT: moist mucosa Heart: RRR, no murmur, no gallops, no rubs Respiratory: no rales, no ronchi Respiratory - other findings: occ wheezing, decent air movement, coughing fits Gastrointestinal: soft, non-tender, non-distended, normal bowel sounds Psychiatric: normal affect, normal behavior, A&O x 3 Hosp A/P (1) COPD exacerbation Code(s): J44.1 - CHRONIC OBSTRUCTIVE PULMONARY DISEASE W (ACUTE) EXACERBATION Status: Acute (2) NSTEMI (non-ST elevated myocardial infarction) Code(s): I21.4 - NON-ST ELEVATION (NSTEMI) MYOCARDIAL INFARCTION Status: Acute (3) Acute respiratory failure with hypoxia and hypercapnia Code(s): J96.01 - ACUTE RESPIRATORY FAILURE WITH HYPOXIA; J96.02 - ACUTE RESPIRATORY FAILURE WITH HYPERCAPNIA Status: Acute (4) JAYJAY (acute kidney injury) Code(s): N17.9 - ACUTE KIDNEY FAILURE, UNSPECIFIED Status: Acute (5) CAD (coronary artery disease) Code(s): I25.10 - ATHSCL HEART DISEASE OF [place] CORONARY ARTERY W/O ANG PCTRS Status: Chronic (6) HTN (hypertension) Code(s): I10 - ESSENTIAL (PRIMARY) HYPERTENSION Status: Chronic Qualifiers: Hypertension type: essential hypertension Qualified Code(s): I10 - Essential (primary) hypertension - Plan COPD exacerbation- on oxygen, nebs, steroids, azithromycin, Appreciate Dr. Salguero assistance NSTEMI- Dr. Daniels cathed this AM, CAD with patent old stents, no intervention necessary
[2019-06-11] MEDS ORDERED: Iopamidol 370 76% 50 ML VIAL FS ONE (09:07)
[2019-06-11] MEDS ORDERED: Iopamidol 370 76% 100 ML VIAL ONE (09:07)
[2019-06-11] MEDS: Furosemide 20 MG TAB PO SCH (09:58)
[2019-06-11] MEDS: Potassium Chloride 10 MEQ TAB PO SCH (09:58)
[2019-06-11] MEDS ORDERED: guaiFENesin ER 600 MG TAB PO SCH (12:00)
--- NOTE | 2019-06-11 12:32 | PRG ---
DATE OF SERVICE: SUBJECTIVE: Lena Lopez was discussed with Dr. Daniels. She apparently had nothing that would require standard coronary bypass grafting. She says she is feeling better though she still has a cough. OBJECTIVE: VITAL SIGNS: She is afebrile. Heart rates in the 90s, respiratory rates in the teens, oximetry is 98% to 100% on 2 L. LUNGS: Clear. HEART: Regular rhythm. ABDOMEN: Soft. IMPRESSION: 1. Chronic obstructive pulmonary disease exacerbation. 2. Probable bronchitis. 3. Status post cardiac catheterization with nothing found that would lead to bypass surgery or stenting. Switch her back to p.o. prednisone. She will continue with q.4 hour nebulizer treatments. Put her on Tessalon Perles for her cough around the clock. Job ID: [id number]
[2019-06-11] MEDS: Benzonatate 100 MG CAP PO SCH ×2 (16:30→20:49)
[2019-06-11] MEDS: Azithromycin 500 MG in Sodium Chloride 0.9% 250 ML 250 ML IVPB SCH (20:45)
[2019-06-11] MEDS: guaiFENesin ER 600 MG TAB PO SCH (20:49)
[2019-06-12] MEDS: Ezetimibe 10 MG TAB PO SCH (08:32)
[2019-06-12] MEDS: Furosemide 20 MG TAB PO SCH (08:32)
[2019-06-12] MEDS: Losartan 25 MG TAB PO SCH (08:33)
[2019-06-12] MEDS: Atorvastatin Calcium 40 MG TAB PO SCH (08:33)
[2019-06-12] MEDS: Benzonatate 100 MG CAP PO SCH (08:33)
[2019-06-12] MEDS: Aspirin Chewable 81 MG TAB PO SCH (08:33)
[2019-06-12] MEDS: Famotidine 20 MG TAB PO SCH (08:33)
[2019-06-12] MEDS: Clopidogrel Bisulfate 75 MG TAB PO SCH (08:33)
[2019-06-12] MEDS: guaiFENesin ER 600 MG TAB PO SCH (08:34)
[2019-06-12] MEDS: Potassium Chloride 10 MEQ TAB PO SCH (08:34)
[2019-06-12] MEDS: DALIRESP 500 MCG PO SCH (08:34)
--- NOTE | 2019-06-12 09:07 | PDOC.HOSPP ---
- Subjective Encounter Date: 06/12/19 Encounter Time: 10:10 Subjective: Patient with improved SOB and coughing. Feeling better today. - Objective Vital Signs & Weight: Vital Signs (12 hours) Temp Pulse Resp BP Pulse Ox 06/12/19 08:04 82 18 98 06/12/19 07:56 99.1 F 90 20 148/66 H 97 06/12/19 04:00 88 18 119/56 L 100 06/12/19 02:04 92 16 96 06/11/19 22:19 94 16 95 Weight Weight 153 lb 6.4 oz I&O: 06/11/19 06/12/19 06/13/19 06:59 06:59 06:59 Intake Total 200 Balance 200 Result Diagrams: 06/07/19 04:42 06/11/19 04:41 Hospitalist ROS - Review of Systems Constitutional: denies: fever, chills Respiratory: reports: cough. denies: shortness of breath, wheezing Cardiovascular: denies: chest pain, palpitations, orthopnea Gastrointestinal: denies: nausea, vomiting, abdominal pain - Medication Medications: Active Medications Generic Name Dose Route Start Last Admin Trade Name Freq PRN Reason Stop Dose Admin Acetaminophen 650 mg 06/06/19 17:42 06/07/19 05:33 Tylenol PO 650 mg Q4H PRN Administration Headache/Fever/Mild Pain (1-3) Albuterol/Ipratropium 3 ml 06/06/19 18:30 06/12/19 08:04 Duoneb NEB 3 ml [id number] YONG Administration Aspirin 81 mg 06/07/19 09:00 06/12/19 08:33 Aspirin Chewable PO 81 mg DAILY YONG Administration Atorvastatin Calcium 80 mg 06/07/19 09:00 06/12/19 08:33 Lipitor PO 80 mg DAILY YONG Administration Benzonatate 200 mg 06/11/19 15:00 06/12/19 08:33 Tessalon PO 200 mg TID YONG Administration Clopidogrel Bisulfate 75 mg 06/07/19 09:00 06/12/19 08:33 Plavix PO 75 mg DAILY YONG Administration Ezetimibe 5 mg 06/07/19 09:00 06/12/19 08:32 Zetia PO 5 mg DAILY YONG Administration Famotidine 20 mg 06/06/19 21:00 02/06/20 08:33 Pepcid PO 20 mg BID YONG Administration Furosemide 20 mg 06/07/19 09:00 06/12/19 08:32 Lasix PO 20 mg DAILY YONG Administration Guaifenesin 600 mg 06/11/19 21:00 06/12/19 08:34 Mucinex PO 600 mg Q12HR YONG Administration Guaifenesin/Dextromethorphan 15 ml 06/06/19 17:42 06/10/19 22:24 Robitussin Dm PO 15 ml Q4H PRN Administration Cough Azithromycin 500 mg/ Sodium 250 mls @ 250 mls/hr 06/06/19 20:00 06/11/19 20: 45 Chloride IVPB 250 mls Q24HR YONG Administration Losartan Potassium 25 mg 06/07/19 09:00 06/12/19 08:33 Cozaar PO 25 mg DAILY YONG Administration Metoprolol Succinate 50 mg 06/07/19 09:00 06/12/19 08:34 Toprol Xl PO 50 mg QAM YONG Administration Daliresp 500 Mcg 0 each 06/10/19 09:00 06/12/19 08:34 PO 1 each DAILY YONG Administration Potassium Chloride 10 meq 06/07/19 09:00 06/12/19 08:34 Klor-Con 10 PO 10 meq DAILY YONG Administration - Exam General Appearance: NAD, awake alert ENT: moist mucosa Heart: RRR, no murmur, no gallops, no rubs Respiratory: no rales, no ronchi Respiratory - other findings: occ wheeze, decent air movement bilaterally, no coughing fits Gastrointestinal: soft, non-tender, non-distended, normal bowel sounds Psychiatric: normal affect, normal behavior, A&O x 3 Hosp A/P (1) COPD exacerbation Code(s): J44.1 - CHRONIC OBSTRUCTIVE PULMONARY DISEASE W (ACUTE) EXACERBATION Status: Acute (2) Type 2 AMI (acute myocardial infarction) Code(s): I21.A1 - MYOCARDIAL INFARCTION TYPE 2 Status: Acute (3) Acute respiratory failure with hypoxia and hypercapnia Code(s): J96.01 - ACUTE RESPIRATORY FAILURE WITH HYPOXIA; J96.02 - ACUTE RESPIRATORY FAILURE WITH HYPERCAPNIA Status: Acute (4) JAYJAY (acute kidney injury) Code(s): N17.9 - ACUTE KIDNEY FAILURE, UNSPECIFIED Status: Acute (5) CAD (coronary artery disease) Code(s): I25.10 - ATHSCL HEART DISEASE OF [place] CORONARY ARTERY W/O ANG PCTRS Status: Chronic (6) HTN (hypertension) Code(s): I10 - ESSENTIAL (PRIMARY) HYPERTENSION Status: Chronic Qualifiers: Hypertension type: essential hypertension Qualified Code(s): I10 - Essential (primary) hypertension - Plan COPD exacerbation- on oxygen, nebs, steroids, azithromycin, Appreciate Dr. Salguero assistance Acute AL type 2- Dr. Daniels cathed 06/11/19, CAD with patent old stents, no intervention necessary Home today if ok with Dr. Borden.
[2019-06-12 11:51] VITALS: BP 112/55; TEMP 99
--- NOTE | 2019-06-12 14:46 | PRG ---
DATE OF SERVICE: 06/12/2019 SUBJECTIVE: She feels like she is back to her baseline. She is on oxygen. OBJECTIVE: VITAL SIGNS: She is afebrile, heart rate is 88, respiratory rate is 12, oximetry is 98, and blood pressure 112/55. LUNGS: Clear. HEART: Regular. ABDOMEN: Soft. IMPRESSION: 1. Chronic obstructive pulmonary disease exacerbation. 2. Nonobstructive coronary artery disease. PLAN: She is a candidate to go home in my opinion with the 10 to 14 days of taper steroids. She will follow up with me in 3 to 4 weeks in the office. She has oxygen at home. She has nebulizer at home. Job ID: [id number]
--- NOTE | 2019-06-13 03:12 | DIS ---
DATE OF ADMISSION: 06/09/2019 DATE OF DISCHARGE: 06/12/2019 PRIMARY CARE PHYSICIAN: Juan Weston MD. REASON FOR ADMISSION: COPD exacerbation and elevated troponins. DISCHARGE DIAGNOSES: 1. Chronic obstructive pulmonary disease exacerbation, improved. 2. Agliv-uw-ssajujp respiratory failure with hypoxia and hypercapnia. 3. Type 2 acute myocardial infarction secondary to #1. 4. Coronary disease. 5. Hypertension. PROCEDURES: 1. Echocardiogram showing ejection fraction of 50% to 55% and EA flow reversal suggestive of diastolic dysfunction. 2. Cardiac catheterization showing 2-vessel coronary artery disease of the circumflex and RCA with continued good stent results. CONSULTATIONS: 1. Cardiology, Dr. Daniels. 2. Pulmonology, Dr. Borden. SUMMARY OF HOSPITAL COURSE: This is a 73-year-old female with a history of coronary artery disease and previous stents last time in 2019, also with COPD, CHF and hypertension. She came to the hospital complaining of dyspnea, started about a week ago with progressive dyspnea, increased cough, increased sputum production, described as thick and green. She does use oxygen at home as needed. She was brought in to the hospital. She had to be treated with BiPAP and was given steroids and nebs and started to feel better, but was weak. She was noted to have elevated troponins in the emergency room, so she was admitted to the hospital. The patient was treated with steroids, antibiotics and nebulizers in the hospital. Dr. Daniels did evaluate her for her elevated troponin. Dr. Borden was consulted for COPD. Dr. Daniels determined to catheter once her COPD improved. She did gradually improve with her symptoms and then she was able to get a catheterization, which showed no in-stent restenoses. Dr. Daniels did adjust her medications, but no other intervention was necessary. Dr. Borden followed along with her about her COPD exacerbation. She was eventually able to be switched from IV to oral steroids. She finished azithromycin course and she was doing much better by the day of discharge, saturating well on her home oxygen. She is being discharged home. DISCHARGE MANAGEMENT: Discharged home. FOLLOWUP: Follow up with Dr. Daniels in 3 to 4 weeks, Dr. Borden in 2 weeks and with Juan Weston in 4 days. ACTIVITY: As tolerated. DIET: Healthy heart diet. DISCHARGE MEDICATIONS: 1. Tessalon Perles 200 mg 3 times daily as needed, 30 capsules dispensed. 2. Metoprolol succinate 50 mg daily, 30 tablets dispensed. 3. Prednisone 5 mg Dosepak take as directed, 1 pack dispensed. 4. Albuterol sulfate inhaler as needed. 5. Aspirin 81 mg daily. 6. Atorvastatin 80 mg daily. 7. Clopidogrel 75 mg daily. 8. Zetia 5 mg daily. 9. Furosemide 20 mg daily. 10. Potassium chloride 10 mEq daily. 11. Cyclobenzaprine 10 mg daily. 12. Famotidine 20 mg daily. 13. Perforomist 1 vial nebulizer twice daily. 14. Mucinex DM as needed. 15. DuoNeb as needed. 16. Loratadine 10 mg daily as needed. 17. Losartan 100 mg daily. 18. Daliresp 500 mcg daily. 19. Anoro Ellipta 1 inhalation daily. TIME SPENT: Arranging the details of this discharge took 35 minutes. Job ID: [id number]
== END 2019-06-12 14:44 | disposition home or self-care (01) | DRG 190 ==
LOC: ERS 13:32 → 2SW 19:55 → OBSVTOIN 06-09 09:03
PROVIDERS: ADMIT Internal Medicine; ATTEND Internal Medicine
PROC: 4A023N7 Measurement of Cardiac Sampling and Pressure, Left Heart, Percutaneous Approach (ICD-10-PCS; principal; 2019-06-09)
PROC: B2111ZZ Fluoroscopy of Multiple Coronary Arteries using Low Osmolar Contrast (ICD-10-PCS; 2019-06-09)
PROC: B2151ZZ Fluoroscopy of Left Heart using Low Osmolar Contrast (ICD-10-PCS; 2019-06-09)
DX: J44.1 Chronic obstructive pulmonary disease with (acute) exacerbation (principal); J96.22 Acute and chronic respiratory failure with hypercapnia; J96.21 Acute and chronic respiratory failure with hypoxia; I21.A1 Myocardial infarction type 2; T82.855A Stenosis of coronary artery stent, initial encounter; N17.9 Acute kidney failure, unspecified; I42.8 Other cardiomyopathies; I25.10 Atherosclerotic heart disease of native coronary artery without angina pectoris; Y83.8 Other surgical procedures as the cause of abnormal reaction of the patient, or of later complication, without mention of misadventure at the time of the procedure; I11.0 Hypertensive heart disease with heart failure; I50.9 Heart failure, unspecified; E78.5 Hyperlipidemia, unspecified; E78.00 Pure hypercholesterolemia, unspecified; Z87.891 Personal history of nicotine dependence; Z88.1 Allergy status to other antibiotic agents; Z88.5 Allergy status to narcotic agent; Z95.5 Presence of coronary angioplasty implant and graft; Z98.890 Other specified postprocedural states
CPT/HCPCS: 36415; 71045; 80048; 80053; 82553; 82805; 83605; 83880; 84484; 85025; 85347; 93005; 93010; 93306; 93458; 94640; 94660; 94760; 96361; 96365; 99152; 99153; C1769; J0456; J1644; J1650; J2001; J2250; J2720; J2920; J3010; J3475; J3490; J7050; J7512; J7620; Q9967

== ENCOUNTER 2019-07-21 06:50 | Inpatient (IN) | payer MEDICARE, MEDICAID ==
[2019-07-21 07:21] LABS: #Lymphocytes 1.7 thou/uL (1.20-3.40); #Monocytes 0.5 thou/uL (0.11-0.59); #Neutrophils 9.5 thou/uL (1.40-6.50); %Basophils 0.2 % (0.0-1.0); %Eosinophils 0.4 % (0.0-10.0); %Lymphocytes 14.3 % (21.0-51.0); %Monocytes 3.9 % (0.0-10.0); %Neutrophils 81.2 % (42.0-75.0); Hemoglobin 11.3 g/dL (12.0-16.0); Mean Corpuscular HGB CONC 31.2 g/dL (32.0-36.0); Mean Corpuscular Hemoglobin 28.3 pg (27.0-31.0); Mean Corpuscular Volume 90.6 fL (78.0-98.0); Mean Platelet Volume 8.4 fL (7.4-10.4); Platelet Count 326 thou/uL (130-400); RBC Distribution Width 12.8 % (11.5-14.5); Red Blood Cell (RBC) Count 4.01 mill/uL (4.20-5.40); White Blood Cell (WBC) Count 11.7 thou/uL (4.8-10.8)
[2019-07-21 07:35] LABS: ALT (SGPT) 9 U/L (8-55); AST (SGOT) 14 U/L (5-34); Albumin 4.1 g/dL (3.4-4.8); Alkaline Phosphatase 102 U/L (40-110); Anion Gap 14 mmol/L (10-20); BUN (Urea Nitrogen) 17 mg/dL (9.8-20.1); Bilirubin, Total 0.3 mg/dL (0.2-1.2); Calc. Creatinine Clearance 0 mL/min (70-130); Calcium 8.5 mg/dL (7.8-10.44); Carbon Dioxide 27 mmol/L (23-31); Chloride 108 mmol/L (98-107); Estimated GFR-MDRD 51; Globulin 2.1 g/dL (2.4-3.5); Glucose 133 mg/dL (83-110); Potassium 3.9 mmol/L (3.5-5.1); Protein, Total 6.2 g/dL (6.0-8.3); Sodium 145 mmol/L (136-145)
[2019-07-21 07:59] LABS: CKMB 1.5 ng/mL (0-6.6)
--- NOTE | 2019-07-21 08:08 | RAD ---
CHEST 1 VIEW: Date: 07/21/2019 INDICATION: COPD. COMPARISON: Prior exam dated 06/06/2019. FINDINGS: COPD change is stable. Mild cardiomegaly is stable. ACDF is unchanged. No air space consolidation, pl eural effusion, or pneumothorax is evident. No acute osseous abnormality is noted. IMPRESSION: No acute cardiopulmonary abnormality. Stable COPD change. POS: BH
[2019-07-21 08:21] LABS: Actual Bicarbonate (HCO3a) 23.6 mEq/L (22-28); Analyzer IN Cardio ER; Base Excess (BEa) -1.7 mEq/L (-2.0 to +3.0); CO2 Tension 42.6 mmHg (35.0-45.0); Calcium, Ionized 1.13 mmol/L (1.12-1.30); Carboxyhemoglobin (COHb) 0.3 gm% (0.0-3.0); Hemoglobin (Hb) 11.6 g/dL (12.0-16.0); O2 Tension (PaO2) 72.5 mmHg (> 70.0); Potassium - ABG Lab 3.66 mmol/L (3.70-5.30); Puncture Site RRA; pH, Arterial 7.36 (7.35-7.45)
[2019-07-21] MEDS ORDERED: Oseltamivir 75 MG CAP PO SCH (09:00)
[2019-07-21] MEDS ORDERED: Morphine 4 MG/ML VIAL ONE (09:10)
[2019-07-21] MEDS ORDERED: Acetaminophen 500 MG TAB ONE (09:24)
[2019-07-21 11:41] LABS: Troponin I 0.388 ng/mL (< 0.028)
[2019-07-21] MEDS ORDERED: Ondansetron PF 4 MG/2 ML Vial IVP PRN (14:07)
[2019-07-21] MEDS ORDERED: Ondansetron ODT 4 MG TAB PO PRN (14:07)
[2019-07-21] MEDS ORDERED: Acetaminophen 500 MG TAB PO PRN (14:07)
[2019-07-21] MEDS ORDERED: hydrALAZINE 20 MG/ML VIAL SLOW IVP PRN (14:07)
--- NOTE | 2019-07-21 16:00 | CON ---
DATE OF CONSULTATION: 07/21/2019 CONSULTING PHYSICIAN: Rehan Herman REASON FOR CONSULTATION: COPD exacerbation and flu. HISTORY OF PRESENT ILLNESS: The patient is a 74-year-old who presented with increasing shortness of breath, subjective fever, and chills. She is tested positive for type A flu. She has received her first dose of Tamiflu. She has also been started on empiric antibiotics. PAST MEDICAL HISTORY: 1. Severe chronic obstructive pulmonary disease. 2. Coronary artery disease, requiring stenting. 3. Congestive heart failure. 4. Hypertension. 5. Hyperlipidemia. 6. Cervical spine Surgery. 7. Carpal tunnel surgery. 8. Breast cyst removal. SOCIAL HISTORY: Quit smoking over 10 years ago. Does not consume alcohol. FAMILY MEDICAL HISTORY: Remarkable for lung disease. MEDICATIONS: Prior to admission, she was apparently on; 1. Prednisone 5 mg daily. 2. Anoro Ellipta. 3. Daliresp. 4. Cozaar. 5. Claritin. 6. DuoNeb. 7. Perforomist. 8. Flexeril. 9. Plavix. 10. Tessalon Perles. 11. Aspirin. 12. Albuterol. REVIEW OF SYSTEMS: Ten-point review of systems is otherwise negative. PHYSICAL EXAMINATION: VITAL SIGNS: Pulse is running around 100, blood pressure 140/60, respiratory rate 18, and O2 saturation 96% on 2 L. GENERAL: She is awake, alert, in no distress. HEENT: Pupils are reactive. Sclerae are anicteric. Oropharynx is clear. NECK: No adenopathy or JVD. LUNGS: Currently clear without wheezing or rhonchi. CARDIAC: S1 and S2, regular, without murmur. ABDOMEN: Soft and nontender. EXTREMITIES: No clubbing, cyanosis, or edema. LABORATORY DATA: White blood cell count 11.7, hematocrit 36.3, and platelet count 326. PH of 7.36, pCO2 of 42, and pO2 of 75. Sodium 145, potassium 3.8, chloride 108, CO2 of 27, BUN 17, creatinine 1.0, and glucose 133. BNP 75. IMAGING DATA: X-ray shows chronic interstitial changes without mass, effusion, or infiltrate. ASSESSMENT: 1. Influenza, type A. 2. Chronic obstructive pulmonary disease with mild exacerbation. PLAN: I would agree with the current treatment, nebulization treatments, steroids, and Tamiflu. We will be happy to follow with you. Job ID: [id number]
[2019-07-21 16:39] LABS: Troponin I 0.448 ng/mL (< 0.028)
[2019-07-21 17:31] VITALS: BMI 27.5
[2019-07-21] MEDS: methylPREDNISolone Sod Succ 40 MG VIAL IVP SCH ×2 (17:45→23:56)
[2019-07-21] MEDS: Arformoterol 15 MCG/2 ML NEB NEB SCH (18:25)
[2019-07-21] MEDS: Famotidine 20 MG TAB PO SCH (21:33)
[2019-07-21] MEDS: Benzonatate 100 MG CAP PO PRN (21:33)
[2019-07-21] MEDS: Oseltamivir 75 MG CAP PO SCH (21:39)
[2019-07-22 05:37] LABS: Anion Gap 13 mmol/L (10-20); BUN (Urea Nitrogen) 22 mg/dL (9.8-20.1); Calc. Creatinine Clearance 57 mL/min (70-130); Calcium 8.5 mg/dL (7.8-10.44); Carbon Dioxide 27 mmol/L (23-31); Chloride 106 mmol/L (98-107); Estimated GFR-MDRD 57; Glucose 224 mg/dL (83-110); Potassium 4.3 mmol/L (3.5-5.1); Sodium 142 mmol/L (136-145)
[2019-07-22] MEDS: methylPREDNISolone Sod Succ 40 MG VIAL IVP SCH ×4 (05:48→23:17)
[2019-07-22 05:56] LABS: Band 10 % (5-11); Hemoglobin 10.4 g/dL (12.0-16.0); Lymphocytes 13 % (21-51); MDiff Complete? YES; Mean Corpuscular HGB CONC 32.3 g/dL (32.0-36.0); Mean Corpuscular Hemoglobin 29.5 pg (27.0-31.0); Mean Corpuscular Volume 91.4 fL (78.0-98.0); Mean Platelet Volume 8.5 fL (7.4-10.4); Monocytes 3 % (0-10); Neutrophil 74 % (42-75); Platelet Count 260 thou/uL (130-400); RBC Distribution Width 12.7 % (11.5-14.5); Red Blood Cell (RBC) Count 3.53 mill/uL (4.20-5.40); White Blood Cell (WBC) Count 5.1 thou/uL (4.8-10.8)
[2019-07-22] MEDS: Arformoterol 15 MCG/2 ML NEB NEB SCH ×2 (07:26→18:59)
--- NOTE | 2019-07-22 08:11 | HP ---
PRIMARY CARE PROVIDER: Juan Weston MD. CHIEF COMPLAINT: Shortness of breath and cough. HISTORY OF PRESENT ILLNESS: This is a 74-year-old female who presented to [facility], complaining of increased shortness of breath in the context of chronic obstructive pulmonary disease as well as persistent cough x1 week and low-grade temperature of 99 degrees Fahrenheit. The patient with recent admission in 06/2019 for chronic obstructive pulmonary disease flare. The patient received standard treatment for COPD flare and was released home on a prednisone taper, Tessalon Perles, and continued use of her regular bronchodilator therapy. The patient states she saw her primary care provider within the last week and was placed on a Z-Danny, which she states she had 4 out of 5 days of therapy. The patient denied any chronic daily use of prednisone, but has been compliant with her home nebulizer therapy. The patient denied any travel history or family members with similar symptoms, but did report a low-grade fever. The patient received DuoNebs x3 and transferred by EMS personnel. In addition, the patient received Tamiflu after influenza A antigen was positive by nasal swab. The patient was briefly placed on BiPAP noninvasive mechanical ventilation, which was subsequently discontinued, and the patient continued on oxygen by nasal cannula at 2 to 3 L/minute. PAST MEDICAL HISTORY: 1. Chronic hypoxic respiratory failure. 2. Chronic obstructive pulmonary disease. 3. Chronic oxygen supplementation at 2 L/minute by nasal cannula. 4. Coronary artery disease. 5. Hypertension. 6. Remote tobacco use. PAST SURGICAL HISTORY: 1. Status post carpal tunnel release. 2. Status post cervical spine surgery. 3. Status post cardiac catheterization with stent placement. CURRENT MEDICATIONS: Based on recent discharge summary on 06/12/2019: 1. Metoprolol succinate 50 mg p.o. daily. 2. Albuterol sulfate inhaler p.r.n. 3. Aspirin 81 mg p.o. daily. 4. Lipitor 80 mg p.o. daily. 5. Plavix 75 mg p.o. daily. 6. Zetia 5 mg p.o. daily. 7. Lasix 20 mg p.o. daily. 8. Potassium chloride 10 mEq p.o. daily. 9. Cyclobenzaprine 10 mg p.o. daily p.r.n. 10. Famotidine 20 mg p.o. daily. 11. Perforomist one vial nebulized b.i.d. 12. DuoNeb q.4 h. p.r.n. 13. Losartan 100 mg p.o. daily. 14. Daliresp 500 mcg inhaled daily. 15. Anoro Ellipta one inhalation daily. ALLERGIES: CODEINE, ERYTHROMYCIN, AND TRAMADOL. FAMILY HISTORY: No inheritable diseases per the patient report. SOCIAL HISTORY: Resides in the [facility]. Accompanied by her daughter in the hospital. Quit smoking over 10 years prior to this evaluation. No alcohol or illicit drug use. REVIEW OF SYSTEMS: CONSTITUTIONAL: Negative for weight loss or gain, ability to conduct usual activities. SKIN: Negative for rash, itching. EYES: Negative for double vision, pain. ENT/MOUTH: Negative for nose bleeding, neck stiffness, pain, tenderness. CARDIOVASCULAR: Negative for palpitations, dyspnea on exertion, orthopnea. RESPIRATORY: Negative for wheezing, hemoptysis, or night sweats. GASTROINTESTINAL: Negative for poor appetite, abdominal pain, heartburn, nausea, vomiting, constipation, or diarrhea. GENITOURINARY: Negative for urgency, frequency, dysuria, nocturia. MUSCULOSKELETAL: Negative for pain, swelling. NEUROLOGIC/PSYCHIATRIC: Negative for anxiety, depression. ALLERGY/IMMUNOLOGIC: Negative for skin rash, bleeding tendency. Otherwise negative except as stated per HPI. PHYSICAL EXAMINATION: VITAL SIGNS: On admission; blood pressure 124/57, pulse 118, respiratory rate 21, temperature 100.7 degrees Fahrenheit, and O2 saturation 94% on 2 L/minute by nasal cannula. GENERAL APPEARANCE: This is a 74-year-old female, alert and oriented x3, pleasant, responsive, in no acute distress. HEENT: Pupils are equal, round, and reactive to light and accommodation. Extraocular muscles are intact. No scleral icterus. No conjunctival injection. Nares patent. OP is clear. Teeth in fair repair. NECK: Supple. No cervical adenopathy. No thyromegaly. No carotid bruits. No JVD appreciated. Cervical spine with full active and passive range of motion. No meningeal signs noted. CHEST: Coarse breath sounds bilaterally with diminished breath sounds in the bases. Expiratory wheezing bilaterally. CARDIOVASCULAR: S1 and S2 with tachycardia. No murmur, rub, or gallop appreciated. ABDOMEN: Rounded, soft, nontender, and nondistended. Bowel sounds are positive in all 4 quadrants. There is no hepatosplenomegaly. No abdominal bruits. No rebound or guarding appreciated. EXTREMITIES: Warm and dry with fair turgor. No clubbing, cyanosis, or asymmetric edema appreciated. Pulses palpable distally at the dorsalis pedis, posterior tibial, and popliteal arteries bilaterally. Capillary refill less than 2 seconds. NEUROLOGIC: Cranial nerves 2 through 12 are grossly intact. No focal or lateralizing signs appreciated. PERTINENT LABORATORY AND X-RAY FINDINGS: Sodium 145, potassium 3.9, chloride 108, CO2 of 27, BUN 17, creatinine 1.06, estimated GFR 51, and glucose 133. Lactic acid level 1.7. Calcium 8.5. Troponin I ranged between 0.056 to 0.388. BNP 76. CBC showed a white blood cell count of 11.7, hemoglobin 11.3, hematocrit 36, and platelet count 326 with 81% neutrophils. Arterial blood gas dated 07/21/2019 at 8:20 a.m. showed a pH 7.36, pCO2 of 42.6, PO2 of 72.5, bicarb 23.6, O2 saturation 94% on 28% FiO2 by BiPAP noninvasive mechanical ventilation. Portable chest x-ray dated 07/21/2019 by my interpretation shows increased interstitial markings bilaterally. Chronic lung changes noted. Hyperinflation noted. No discrete infiltrate identified. EKG dated 07/21/2019 by my interpretation shows sinus tachycardia with heart rates in the 120s. Attenuated R-waves noted in the precordial leads. Normal axis. No acute ST-T wave changes appreciated. ASSESSMENT AND PLAN: 1. Fevcb-pc-uwavdta hypoxic respiratory failure secondarily to #2. The patient will be admitted to the telemetry unit. We will continue aggressive pulmonary supportive management. See below for specific details. Continue oxygen supplementation to maintain O2 saturation greater than or equal to 90%. 2. Chronic obstructive pulmonary disease exacerbation secondarily to influenza A. We will continue Solu-Medrol 40 mg IV q.6 h. with additional DuoNeb q.4 h. Continue Tamiflu 75 mg b.i.d. Respiratory and droplet isolation. Continue Levaquin 750 mg p.o. daily. Consult Pulmonology Service for any further recommendations. 3. Non-ST elevation myocardial infarction, type 2. Suspect demand ischemia in the context of #1. Continue serial troponin-I trending. Consider Cardiology consultation. 4. Coronary artery disease, chronic and stable. Resume home medication regimen. Telemetry monitoring. Continue serial troponin-I trending as outlined above. 5. Prophylaxis. Sequential compression devices while in bed. Pepcid 20 mg p.o. b.i.d. Respiratory and droplet isolation. 6. Code status is full. Surrogate medical decision maker is the patient's daughter. Job ID: [id number]
--- NOTE | 2019-07-22 09:38 | PRG ---
DATE OF SERVICE: 07/22/2019 SUBJECTIVE: The patient is doing reasonably well, had no acute complaints. OBJECTIVE: VITAL SIGNS: Temperature is 96.4, pulse 100, respirations 18, oxygen saturation 97% on 1 L, and blood pressure 137/60. HEENT: Unremarkable. NECK: No adenopathy or JVD. LUNGS: Clear, but distant breath sounds. CARDIAC: S1 and S2. Regular. ABDOMEN: Soft. EXTREMITIES: No edema. LABORATORY DATA: White blood cell count 5.1, hematocrit 32.3, and platelet count 260. Sodium 142, potassium 4.2, BUN 22, creatinine 0.9, and glucose 224. ASSESSMENT: 1. Influenza. 2. Chronic obstructive pulmonary disease with exacerbation. PLAN: She seems to be doing well on the Tamiflu, steroids, and nebulization treatments. Suspect she can go home in a day or two. Job ID: [id number]
--- NOTE | 2019-07-22 09:48 | PDOC.HOSPP ---
- Subjective Encounter Date: 07/22/19 Encounter Time: 09:40 Subjective: f/u for Influenza A and COPD exacerbation. Feels ok overall but still SOB with mild exertion. No fever noted. Receiving Tamiflu/Levaquin. - Objective Vital Signs & Weight: Vital Signs (12 hours) Temp Pulse Resp BP BP Pulse Ox 07/22/19 08:18 96.4 F L 100 18 137/60 97 07/22/19 07:26 100 16 07/22/19 04:49 98.1 F 85 20 132/62 95 07/22/19 02:13 61 18 07/21/19 22:08 63 18 Weight Weight 155 lb 3.2 oz Result Diagrams: 07/22/19 04:08 07/22/19 04:08 Additional Labs: Microbiology 07/21/19 07:35 Nasal swab Influenza Types A,B Direct EIA - Final 07/21/19 07:05 Venous blood - Right Hand Blood Culture - Preliminary Specimen has been received and culture in progress. No Growth to date. 07/21/19 07:05 Venous blood - Left Hand Blood Culture - Preliminary Specimen has been received and culture in progress. No Growth to date. Laboratory Tests 06/06/19 06/06/19 06/06/19 14:14 14:14 14:14 WBC 17.7 H Neutrophils % 85.9 H Creatinine 1.18 H Lactic Acid 2.8 H Troponin I B-Natriuretic Peptide 06/06/19 06/06/19 06/06/19 14:14 14:14 17:00 WBC Neutrophils % Creatinine Lactic Acid 3.8 H Troponin I 0.047 H B-Natriuretic Peptide 83.8 06/06/19 06/06/19 06/07/19 17:00 20:05 04:42 WBC Neutrophils % Creatinine Lactic Acid Troponin I 0.183 H 0.320 H* 0.347 H* B-Natriuretic Peptide 07/21/19 07/21/19 07/21/19 07:05 11:02 15:55 WBC Neutrophils % Creatinine Lactic Acid Troponin I 0.056 H 0.388 H* 0.448 H* B-Natriuretic Peptide EKG Reviewed by me: Yes (Tele - SR) Hospitalist ROS - Medication Medications: Active Medications Generic Name Dose Route Start Last Admin Trade Name Freq PRN Reason Stop Dose Admin Acetaminophen 1,000 mg 07/21/19 14:07 07/21/19 21:33 Tylenol PO 1,000 mg Q6H PRN Administration Mild Pain (1-3) Albuterol/Ipratropium 3 ml 07/21/19 18:30 07/22/19 07:26 Duoneb NEB 3 ml [id number] YONG Administration Arformoterol Tartrate 15 mcg 07/21/19 18:30 07/22/19 07:26 Brovana NEB 15 mcg BID-RT YONG Administration Benzonatate 100 mg 07/21/19 14:07 07/21/19 21:33 Tessalon PO 100 mg Q6H PRN Administration Cough Famotidine 20 mg 07/21/19 21:00 07/21/19 21:33 Pepcid PO 20 mg BID YONG Administration Methylprednisolone Sodium Succinate 40 mg 07/21/19 18:00 07/22/19 05:48 Solu-Medrol IVP 40 mg Q6HR YONG Administration Oseltamivir Phosphate 75 mg 07/21/19 21:00 07/21/19 21:39 Tamiflu PO 07/26/19 09:01 75 mg BID YONG Administration - Exam General Appearance: NAD, awake alert Eye: PERRL, anicteric sclera ENT: normocephalic atraumatic, no oropharyngeal lesions Neck: supple, symmetric, no JVD, no thyromegaly Heart: RRR, no murmur, no gallops, no rubs, normal peripheral pulses Respiratory - other findings: exp wheezes, diminished bilat, scattered coarse sounds Gastrointestinal: soft, non-tender, non-distended, normal bowel sounds, no palpable masses Extremities: no cyanosis, no clubbing, no edema Skin: normal turgor, no lesions Neurological: cranial nerve grossly intact, no new deficit Musculoskeletal: normal tone, normal strength, no muscle wasting Psychiatric: normal affect, A&O x 3 Hosp A/P (1) Acute and chronic respiratory failure with hypoxia Code(s): J96.21 - ACUTE AND CHRONIC RESPIRATORY FAILURE WITH HYPOXIA Status: Acute Plan: Continue pulmonary support, O2 PRN, see below for mgmt (2) Influenza A Code(s): J10.1 - FLU DUE TO OTH IDENT INFLUENZA VIRUS W OTH RESP MANIFEST Status: Acute Plan: Continue Tamiflu 75mg BID, respiratory isolation (3) COPD exacerbation Code(s): J44.1 - CHRONIC OBSTRUCTIVE PULMONARY DISEASE W (ACUTE) EXACERBATION Status: Acute Plan: Continue Solumedrol/Duonebs/Levaquin (4) Type 2 AMI (acute myocardial infarction) Code(s): I21.A1 - MYOCARDIAL INFARCTION TYPE 2 Status: Acute Plan: Continue ASA/Plavix/Lipitor/Toprol (5) CAD (coronary artery disease) Code(s): I25.10 - ATHSCL HEART DISEASE OF [place] CORONARY ARTERY W/O ANG PCTRS Status: Chronic Plan: See above - Plan continue antibiotics, rn social work, respiratory therapy, out of bed/ambulate , DVT proph w/SCDs Stable currently Continue Levaquin/Duonebs/Solumedrol Continue Tamiflu 75mg BID Respiratory isolation Resume home ASA/Plavix Resume home BP regimen Likely home in 24h
[2019-07-22] MEDS: Famotidine 20 MG TAB PO SCH ×2 (10:10→21:19)
[2019-07-22] MEDS: Oseltamivir 75 MG CAP PO SCH ×2 (10:10→21:19)
[2019-07-22] MEDS ORDERED: Furosemide 20 MG TAB PO SCH (11:00)
[2019-07-22] MEDS ORDERED: Potassium Chloride 10 MEQ TAB PO SCH (11:00)
[2019-07-22] MEDS ORDERED: Aspirin Chewable 81 MG TAB PO SCH (11:00)
[2019-07-22] MEDS ORDERED: Clopidogrel Bisulfate 75 MG TAB PO SCH (11:00)
[2019-07-22] MEDS ORDERED: Losartan 25 MG TAB PO SCH (11:00)
[2019-07-22] MEDS ORDERED: Ezetimibe 10 MG TAB PO SCH (11:00)
[2019-07-22] MEDS ORDERED: Cyclobenzaprine 10 MG TAB PO SCH (11:00)
[2019-07-22] MEDS ORDERED: Atorvastatin Calcium 40 MG TAB PO SCH (21:00)
[2019-07-22] MEDS: Benzonatate 100 MG CAP PO PRN (21:19)
[2019-07-23] MEDS: methylPREDNISolone Sod Succ 40 MG VIAL IVP SCH (05:49)
[2019-07-23] MEDS: Arformoterol 15 MCG/2 ML NEB NEB SCH (06:56)
[2019-07-23 07:29] VITALS: BP 135/67; TEMP 96.8
[2019-07-23] MEDS ORDERED: Potassium Chloride 10 MEQ TAB PO SCH (08:00)
--- NOTE | 2019-07-23 08:30 | DIS ---
DATE OF ADMISSION: 07/21/2019 DATE OF DISCHARGE: 07/23/2019 DISCHARGE DIAGNOSES: 1. Acute on chronic hypoxic respiratory failure, improved. 2. Influenza A. 3. Chronic obstructive pulmonary disease exacerbation, improved. 4. Type 2 acute myocardial infarction, medically managed. 5. Coronary artery disease. CONSULTATIONS: Dr. Rudolph with Pulmonology Service. PERTINENT LABORATORY AND X-RAY FINDINGS: Troponin I ranged between 0.056 to 0.448. BNP 76. CBC showed a white blood cell count ranging between 5.1 to 11.7, hemoglobin ranged between 10.4 to 11.3. Blood cultures x2 dated 07/21/2019, showed no growth to date. Influenza A positive on 07/21/2019. Portable chest x-ray dated 07/21/2019, showed no acute infiltrate. Chronic changes noted bilaterally. HOSPITAL COURSE: The patient was initially admitted after presenting with severe shortness of breath in the context of chronic obstructive pulmonary disease with exacerbation. The patient was also positive for influenza A antigen and treated with Tamiflu 75 mg b.i.d. The patient initially treated in the emergency room with BiPAP noninvasive mechanical ventilation, rapidly transitioning to oxygen by nasal cannula. The patient continued aggressive pulmonary supportive management including Solu-Medrol, DuoNeb, Levaquin, and bronchodilator therapy. The patient continued to clinically improve and return to baseline respiratory status requiring 2 L/minute by nasal cannula. Pulmonology Service was consulted for general management with recommendations to continue pulmonary supportive measures. The patient was noted with elevated troponins consistent with type 2 myocardial infarction. The patient was recently evaluated with cardiac catheterization on 06/09/2019, showing patent stents in the circumflex and right coronary artery. Recommendations are to continue general medical management. Overall, the patient did remain clinically stable during the hospital course, tolerating regular oral intake with stable vital signs. I have examined the patient at the time of discharge and discussed followup instructions. The patient verbalized understanding and in agreement and ready for discharge on 07/23/2019. DISCHARGE MEDICATIONS: 1. ProAir HFA 2 puffs inhaled q.4 hours p.r.n. 2. Aspirin 81 mg p.o. daily. 3. Lipitor 80 mg p.o. daily. 4. Flexeril 10 mg p.o. daily. 5. Zetia 5 mg p.o. daily. 6. Pepcid 20 mg p.o. daily. 7. Perforomist one vial nebulized b.i.d. 8. Lasix 20 mg p.o. daily. 9. Guaifenesin/dextromethorphan 1200 mg p.o. q.12 hours p.r.n. 10. DuoNeb 3 mL nebulized t.i.d. p.r.n. 11. Claritin 10 mg p.o. daily. 12. Cozaar 100 mg p.o. daily. 13. Potassium chloride 10 mEq p.o. daily. 14. Daliresp 500 mcg p.o. daily. 15. Anoro Ellipta 62.5 mcg/25 mcg one inhalation daily. 16. Tessalon Perles 100 mg p.o. q.6 hours p.r.n. 17. Plavix 75 mg p.o. daily. 18. Levaquin 750 mg p.o. daily x5 days. 19. Toprol-XL 50 mg p.o. q.a.m. 20. Tamiflu 75 mg p.o. b.i.d. x3 days. 21. Prednisone 20 mg take 2 tablets p.o. daily x3 days, followed by 1 tablet p.o. daily x3 days. FOLLOWUP: The patient may follow up with her primary care provider, Dr. Juan Weston, within 3 to 5 days after discharge. The patient may follow up with Dr. Ever Rudolph with Pulmonology Service on 07/30/2019. CONDITION ON DISCHARGE: Stable. ACTIVITY: Ad-areli. DIET: Heart healthy. CODE STATUS: Full. DISPOSITION: Home on 07/23/2019. TIME SPENT: Total time in preparing and coordinating discharge, 33 minutes. Job ID: [id number]
[2019-07-23] MEDS: Oseltamivir 75 MG CAP PO SCH (08:34)
[2019-07-23] MEDS: Famotidine 20 MG TAB PO SCH (08:36)
[2019-07-23] MEDS: Benzonatate 100 MG CAP PO PRN (08:39)
[2019-07-23] MEDS ORDERED: Clopidogrel Bisulfate 75 MG TAB PO SCH (09:00)
[2019-07-23] MEDS ORDERED: Ezetimibe 10 MG TAB PO SCH (09:00)
[2019-07-23] MEDS ORDERED: Losartan 25 MG TAB PO SCH (09:00)
[2019-07-23] MEDS ORDERED: Cyclobenzaprine 10 MG TAB PO SCH (09:00)
[2019-07-23] MEDS ORDERED: Aspirin Chewable 81 MG TAB PO SCH (09:00)
[2019-07-23] MEDS ORDERED: Furosemide 20 MG TAB PO SCH (09:00)
--- NOTE | 2019-07-25 14:41 | PQF ---
PRASHANTH CARRASCO YAMILETH HERMAN DO [id number] CLINICAL DOCUMENTATION IMPROVEMENT CLARIFICATION FORM: ICD-10 Updated PLEASE DO AN ADDENDUM TO THE PROGRESS NOTE WITH ANY DOCUMENTATION UPDATES OR ADDITIONS AND CARRY THROUGH TO DC SUMMARY. THANK YOU. DATE: 07/25/2019 ATTN: Dr. Herman Please exercise your independent, professional judgment in responding to the clarification form. Clinical indicators are provided on the bottom of this form for your review Please check appropriate box(s): HEART FAILURE: A. ACUITY [ ] Acute [ ] Acute on Chronic [ ] Chronic B. TYPE [ ] Systolic / HFrEF [ ] Diastolic / HFpEF [ ] Combined Systolic / Diastolic [ ] Hypertensive Heart and Kidney disease [ ] Hypertensive Heart Disease [ ] Hypertensive Kidney Disease [ ] Other diagnosis [ ] Unable to determine In addition, please specify: Present on Admission (POA): [ ] Yes [ ] No [ ] Unable to determine For continuity of documentation, please document condition throughout progress notes and discharge summary. Thank You. CLINICAL INDICATORS - SIGNS / SYMPTOMS / LABS / RESULTS AND LOCATION IN EMR * BMI27 ED Flu, COPD VS: Temp 100.9 P 101-131, rr 19-31 93-100% Bipap to 94-95% 2lpm NC Oseltamivir oral RISKS FACTORS / RESULTS AND LOCATION IN EMR History of CAD/ischemic heart disease CKD Hypertension TREATMENTS / RESULTS AND LOCATION IN EMR Administration of VICKEY / ARB / BB Cardiac monitoring / telemetry / ECHO IV or PO Diuretics Oxygen AICD Cardiology Consult Thank you, Sarah (This form is maintained as a part of the permanent medical record) 2014 [employer]. All Rights Reserved Sarah Martins RN, CDS [email or web address] [phone] RIZWAN
--- NOTE | 2019-07-26 10:22 | EKG ---
Test Reason : Blood Pressure : / mmHG Vent. Rate : 125 BPM Atrial Rate : 125 BPM P-R Int : 124 ms QRS Dur : 090 ms QT Int : 316 ms P-R-T Axes : 079 079 083 degrees QTc Int : 456 ms Sinus tachycardia with frequent Premature ventricular complexes Otherwise normal ECG Confirmed by CONY RIOJAS, LIYA ([id number]), international editorial producer KASSY LOPEZ ([id number]) on 07/26/2019 10:21:53 AM Referred By: Confirmed By:LIYA DONNELLY MD
--- NOTE | 2019-07-27 09:45 | PQF ---
PRASHANTH CARRASCO CHARLES DO [id number] CLINICAL DOCUMENTATION CLARIFICATION FORM: POST DISCHARGE Addendum to original discharge summary date: ____ Late entry note date: __ DATE: 07/27/2019 ATTN: YAMILETH VÁZQUEZ DO Please exercise your independent, professional judgment in responding to the clarification form. Clinical indicators are provided on the bottom of this form for your review Please check appropriate box(es): [ ] Sepsis due to: (Pna, UTI, gangrenous gall bladder, etc.) Due to: [ ] Device (please specify) [ ] Implant [ ] Graft [ ] Infusion [ ] SIRS due to non-infectious process (please specify etiology) [ ] with organ dysfunction [ ] without organ dysfunction [ ] Severe sepsis with acute organ dysfunction of: (Examples: respiratory failure, encephalopathy, acute kidney failure, other) [ ] Septic Shock [ x ] Localized infection without sepsis [ ] Other diagnosis [ ] Unable to determine In addition, please specify: Present on Admission (POA): [ x ] Yes [ ] No [ ] Unable to determine For continuity of documentation, please document condition throughout progress notes and discharge summary. Thank You. CLINICAL INDICATORS - SIGNS / SYMPTOMS / LABS Influenza A-documented in discharge summary on 07/22 by Virgil peoples DO Acute on chronic hypoxic respiratory failure-Documented in discharge summary on 07/22 by Virgil peoples DO [id number] in ED on 07/20 By Jose Rogers MD [id number] in ED on 07/20 By Jose Rogers MD Sinus tachycardia-Documented in ED on 07/20 By Jose Rogers MD SIRS scoring:Productive coug/PNA, Yes patient did meet at least 1 criteria for step A.,Respiratory rate >20 , Heart rate >90 , Yes , Patient did meet at least 2 ceriteria for Step B-Documented in ED on 07/20 By Jose Rogers MD [id number]-Documented in Laboratoy Blood cultures x2 dated 07/20 showed no growth-Documented in discharge summary on 07/22 by Virgil peoples DO RISK FACTORS Influenza A-documented in discharge summary on 07/22 by Virgil peoples DO TREATMENTS: Tamiflu-75 mg PO now-Documented in medication snapshot [employer] Technical Support Consultant Crystal [employer] Winform Viewer (This form is maintained as a part of the permanent medical record) 2014 [employer] All Rights Reserved Nelson [email or web address]
== END 2019-07-23 10:50 | disposition home or self-care (01) | DRG 193 ==
LOC: ERS 06:50 → ERHOLD 09:50 → 2NO 17:05
PROVIDERS: ADMIT Family Medicine; ATTEND Family Medicine
DX: J10.1 Influenza due to other identified influenza virus with other respiratory manifestations (principal); J96.21 Acute and chronic respiratory failure with hypoxia; I21.A1 Myocardial infarction type 2; J44.1 Chronic obstructive pulmonary disease with (acute) exacerbation; I25.10 Atherosclerotic heart disease of native coronary artery without angina pectoris; I11.0 Hypertensive heart disease with heart failure; I50.9 Heart failure, unspecified; Z95.5 Presence of coronary angioplasty implant and graft; Z99.81 Dependence on supplemental oxygen; Z87.891 Personal history of nicotine dependence; Z88.1 Allergy status to other antibiotic agents; Z88.5 Allergy status to narcotic agent
CPT/HCPCS: 36415; 71045; 80048; 80053; 82553; 82805; 83605; 83880; 84484; 85007; 85025; 85027; 87040; 87804; 93005; 94640; 94660; 96374; J2270; J2920; J7620

== ENCOUNTER 2019-10-01 11:36 | Inpatient (IN) | payer MEDICARE, MEDICAID, OTHER ==
[2019-10-01] MEDS ORDERED: Fentanyl 100 MCG/2 ML VIAL ONE (11:53)
[2019-10-01] MEDS ORDERED: Fentanyl 20 mcg/ml (100 ml CADD) IV PRN (12:10)
[2019-10-01 12:16] LABS: Actual Bicarbonate (HCO3a) 23.7 mEq/L (22-28); Analyzer IN Cardio ER; Base Excess (BEa) -4.3 mEq/L (-2.0 to +3.0); CO2 Tension 56.6 mmHg (35.0-45.0); Calcium, Ionized 1.14 mmol/L (1.12-1.30); Carboxyhemoglobin (COHb) 0.3 gm% (0.0-3.0); Hemoglobin (Hb) 12.2 g/dL (12.0-16.0); O2 Tension (PaO2), arterial 94.5 mmHg (> 70.0); Potassium - ABG Lab 3.59 mmol/L (3.70-5.30)
[2019-10-01 12:17] LABS: Puncture Site RBA; pH, Arterial 7.24 (7.35-7.45)
[2019-10-01 12:30] LABS: Bacteria/HPF 1+ HPF (None Seen); Bilirubin Negative (Negative); Blood, Urine Negative (Negative); Clarity Clear (Clear); Glucose, Urine (Dipstick) Normal (Negative); Leukocyte 75 Leu/uL (Negative); Nitrite Negative (Negative); Protein, Urine (Dipstick) 20 mg/dL (Neg-Trace); RBC/HPF 0-3 HPF (0-3); Squamous Epithelial 0-3 HPF (0-3); Urobilinogen Normal mg/dL (Less than 2)
[2019-10-01] MEDS ORDERED: Vancomycin 1 GM/200 ML BAG ONE (12:49)
[2019-10-01] MEDS ORDERED: cefTRIAXone\\ROCEPHIN 2 GM VIAL ONE (12:49)
[2019-10-01] MEDS ORDERED: Piperacillin/Tazobactam 4.5 GM VIAL ONE (12:49)
[2019-10-01] MEDS ORDERED: cefTRIAXone\\ROCEPHIN 1 GM VIAL ONE (12:55)
[2019-10-01] MEDS ORDERED: Insulin Regular 300 UNITS/3 ML VIAL SC PRN (13:37)
[2019-10-01] MEDS ORDERED: Albuterol 200 PUFF (6.7GM INHALER) INH SCH (14:30)
[2019-10-01 14:54] LABS: Troponin I 0.139 ng/mL (< 0.028)
[2019-10-01] MEDS ORDERED: CCU Electrolyte Replacement 1 EACH FS ONE (17:28)
[2019-10-01] MEDS ORDERED: Ventilator Sedation Protocol 1 EACH FS ONE (17:28)
[2019-10-01 18:11] LABS: Troponin I 0.308 ng/mL (< 0.028)
[2019-10-01] MEDS ORDERED: Fentanyl BOLUS 250 ML IVPB PRN (18:18)
[2019-10-01] MEDS ORDERED: DISCONTINUE PREVIOUS NARCOTIC PAIN MEDICATIONS AND BENZODIAZEPINES FS SCH (18:18)
[2019-10-01] MEDS ORDERED: Propofol 1,000 MG/100 ML VIAL IV PRN (18:18)
[2019-10-01] MEDS ORDERED: fentaNYL Citrate/PF 2,000 MCG in Sodium Chloride 0.9% 60 ML IV SCH (18:18)
[2019-10-01] MEDS ORDERED: Lorazepam 2 MG/ML VIAL SLOW IVP PRN (18:18)
[2019-10-01] MEDS ORDERED: Morphine 2 MG/ML SYRINGE SLOW IVP PRN (18:18)
[2019-10-01] MEDS ORDERED: Propofol BOLUS 1,000 MG/100 ML VIAL IV PRN (18:18)
[2019-10-01] MEDS ORDERED: Potassium Phosphate 12 MMOL in Sodium Chloride 0.9% 250 ML 250 ML IV PRN (18:19)
[2019-10-01] MEDS ORDERED: Potassium Chloride 40 MEQ in Sodium Chloride 0.9% 250 ML 250 ML IVPB PRN (18:19)
[2019-10-01] MEDS ORDERED: PHOS-NAK 1 PKT PACK PO PRN ×2 (18:19)
[2019-10-01] MEDS ORDERED: Magnesium 2 GM/50 ML 2 GM in Premix Bag 1 BAG IVPB PRN (18:19)
[2019-10-01] MEDS ORDERED: CCU ELECTROLYTE REPLACEMENT PROTOCOL FS PRN (18:19)
[2019-10-01] MEDS ORDERED: Magnesium Oxide 400 MG TAB PO PRN ×2 (18:19)
[2019-10-01] MEDS ORDERED: Potassium Phosphate 15 MMOL in Sodium Chloride 0.9% 250 ML 250 ML IV PRN (18:19)
[2019-10-01] MEDS ORDERED: Potassium Chloride 40 MEQ in Premix Bag 1 BAG IVPB PRN (18:19)
[2019-10-01] MEDS ORDERED: Potassium Phosphate 9 MMOL in Sodium Chloride 0.9% 100 ML IVPB PRN (18:19)
[2019-10-01] MEDS ORDERED: Potassium Chloride 20 MEQ TAB PO PRN (18:19)
[2019-10-01] MEDS: methylPREDNISolone Sod Succ 40 MG VIAL IVP SCH (19:10)
[2019-10-01] MEDS: Piperacillin/Tazobactam 3.375 GM in Sodium Chloride 0.9% 100 ML IVPB SCH (19:11)
[2019-10-01 20:42] VITALS: BMI 27.3
[2019-10-01] MEDS ORDERED: Vancomycin 1 GM in Premix Bag 1 BAG IVPB SCH (21:00)
--- NOTE | 2019-10-01 21:10 | HP ---
CHIEF COMPLAINT: Respiratory failure. HISTORY OF PRESENT ILLNESS: The patient is a 74-year-old female with past medical history of CHF, hyperlipidemia, and COPD in addition to coronary artery disease , who was transferred to our ER from [facility]. The patient arrived in a state of respiratory distress and she was found to be tachypneic and tachycardic. The initial impression was severe COPD exacerbation. The patient was intubated for respiratory failure and transferred to our emergency department. ABG revealed evidence of respiratory acidosis. The patient was given Solu-Medrol and swab for COVID-19 was also sent. REVIEW OF SYSTEMS: Unable to obtain as the patient is intubated and sedated. PAST MEDICAL HISTORY: COPD, CHF, coronary artery disease, and hyperlipidemia. PAST SURGICAL HISTORY: Neck surgery and multiple coronary artery stents. SOCIAL HISTORY: Unable to obtain. PHYSICAL EXAMINATION: GENERAL: The patient is currently intubated and sedated. HEENT: Head is normocephalic and atraumatic. NECK: Supple. CHEST: Clear to auscultation at this time. CARDIOVASCULAR: Revealed regular tachycardia with no murmurs, rubs, or gallops. NEUROLOGICAL: Cannot be assessed at this time due to sedation. LABORATORY DATA: Initial laboratory studies revealed leukocytosis of 29,000. Initial troponin was elevated at 0.3 and BNP was within normal limits. The patient's creatinine was elevated at 1.3 and potassium was low at 2.9. Baseline creatinine is 0.9. ASSESSMENT: 1. Acute on chronic respiratory failure with hypoxia and hypercarbia. The patient is currently intubated and mechanically ventilated. Continue nebulized treatments and Solu-Medrol. Pulmonary Service manage the ventilator. 2. Sepsis of unclear etiology. We will cover the patient with broad-spectrum antibiotics at this time. 3. Rule out COVID-19 DAPHNE test was sent in the ER. 4. Initiate Lovenox for deep venous thrombosis prophylaxis. Job ID: [id number] [facility]
[2019-10-01] MEDS: Famotidine/PF 20 mg/2ml Vial SLOW IVP SCH (21:14)
[2019-10-01] MEDS: Atorvastatin Calcium 40 MG TAB PO SCH (21:14)
--- NOTE | 2019-10-01 23:26 | CON ---
DATE OF CONSULTATION: 10/01/2019 A 35 minutes of critical care time. REASON FOR CONSULTATION: Respiratory failure. HISTORY OF PRESENT ILLNESS: At the time this dictation, history and physical is not on the chart. The patient is a 74-year-old female, who presents to the ER with respiratory distress. She was given steroids. She was intubated for hypoxemia. She recently came from [place] I believe. She is currently on mechanical ventilation. She indicates to me she has not been exposed to COVID, but she was recently in the hospital, intubated with influenza. PAST MEDICAL HISTORY: 1. Severe COPD. 2. Coronary artery disease requiring stenting. 3. Congestive heart failure. 4. Hypertension. 5. Hyperlipidemia. 6. Cervical spine surgery. 7. Carpal tunnel surgery. 8. Breast cyst removal. SOCIAL HISTORY: Quit smoking over 10 years ago. Does not consume alcohol. FAMILY HISTORY: Remarkable for lung disease. MEDICATIONS: Prior to admission; 1. Anoro Ellipta one puff daily. 2. Formoterol nebulized twice daily. 3. Losartan 100 mg daily. 4. Pepcid 20 mg daily. 5. Mucinex DM 600 mg once daily. 6. DuoNeb 3 times daily. 7. Daliresp 500 mcg daily. 8. Atorvastatin 80 mg daily. 9. Plavix 75 mg daily. 10. Medrol 4 mg daily. 11. Potassium chloride 10 mEq daily. 12. Cyclobenzaprine 10 mg daily. 13. ProAir HFA metered-dose inhaler 80 mcg as needed. 14. Metoprolol 50 mg once daily. 15. Zetia 5 mg daily. 16. Furosemide 20 mg daily. ALLERGIES: CODEINE, ERYTHROMYCIN, AND TRAMADOL. REVIEW OF SYSTEMS: Cannot be obtained as the patient is intubated. PHYSICAL EXAMINATION: VITAL SIGNS: Pulse 95, blood pressure 97/65, and O2 saturation 100%. HEENT: Unremarkable. NECK: No adenopathy or JVD. LUNGS: Tight with expiratory wheezing. CARDIAC: S1 and S2. Regular. ABDOMEN: Soft. EXTREMITIES: No edema. LABORATORY DATA: Chest x-ray demonstrates proper ET tube placement, hyperinflation, no infiltrates. ABG; pH of 7.24, pCO2 of 56, pO2 of 94 that was on SIMV rate 14, tidal volume 450, PEEP 5, pressure support 10, and FiO2 of 40%. White blood cell count 29, hematocrit 43, and platelet count 540. Sodium 145, potassium 4.5, chloride 106, CO2 of 30, creatinine 1.3, BUN 22, and glucose 234. Troponin less than 0.01. Serum protein 6.7. ASSESSMENT: 1. Chronic obstructive pulmonary disease exacerbation. 2. Acute respiratory failure requiring mechanical ventilation. 3. Doubt COVID-19 infection. PLAN: 1. The patient will be kept intubated. She will be given steroids, nebulization treatments, and antibiotics. Hopefully, she can be extubated in the next 24 to 48 hours. We will await results of COVID-19 testing. 2. DVT prophylaxis with enoxaparin and GI prophylaxis with Pepcid. Job ID: [id number]
[2019-10-02] MEDS: methylPREDNISolone Sod Succ 40 MG VIAL IVP SCH ×4 (00:04→17:19)
[2019-10-02] MEDS: Piperacillin/Tazobactam 3.375 GM in Sodium Chloride 0.9% 100 ML IVPB SCH ×4 (00:04→17:21)
[2019-10-02 04:34] LABS: Anion Gap 14 mmol/L (10-20); BUN (Urea Nitrogen) 23 mg/dL (9.8-20.1); Calc. Creatinine Clearance 45 mL/min (70-130); Calcium 8.1 mg/dL (7.8-10.44); Carbon Dioxide 21 mmol/L (23-31); Chloride 110 mmol/L (98-107); Estimated GFR-MDRD 44; Glucose 178 mg/dL (83-110); Potassium 3.4 mmol/L (3.5-5.1); Sodium 142 mmol/L (136-145)
[2019-10-02 04:50] LABS: Band 3 % (5-11); Hemoglobin 11.2 g/dL (12.0-16.0); Lymphocytes 4 % (21-51); MDiff Complete? YES; Mean Corpuscular HGB CONC 30.7 g/dL (32.0-36.0); Mean Corpuscular Hemoglobin 27.9 pg (27.0-31.0); Mean Corpuscular Volume 90.9 fL (78.0-98.0); Mean Platelet Volume 8.6 fL (7.4-10.4); Neutrophil 93 % (42-75); Platelet Count 305 thou/uL (130-400); RBC Distribution Width 12.6 % (11.5-14.5); White Blood Cell (WBC) Count 13.7 thou/uL (4.8-10.8)
[2019-10-02 07:10] LABS: Actual Bicarbonate (HCO3a) 20.1 mEq/L (22-28); Base Excess (BEa) -3.1 mEq/L (-2.0 to +3.0); Calcium, Ionized 1.14 mmol/L (1.12-1.30); Hemoglobin (Hb) 11.6 g/dL (12.0-16.0); O2 Tension (PaO2), arterial 112.4 mmHg (> 70.0); Potassium - ABG Lab 3.42 mmol/L (3.70-5.30); pH, Arterial 7.44 (7.35-7.45)
[2019-10-02 07:22] LABS: Puncture Site LRA
[2019-10-02] MEDS ORDERED: DC Sedation Protocol FS ONE (08:32)
--- NOTE | 2019-10-02 09:07 | PRG ---
DATE OF SERVICE: 10/02/2019 TIME SPENT: 35 minutes critical care time. SUBJECTIVE: The patient is doing very well. She wants to be extubated, in fact, I did that while I was in the room with her. OBJECTIVE: VITAL SIGNS: Temperature 99.2, pulse 96, blood pressure 140/60, O2 saturation 100%. HEENT: Unremarkable. NECK: No adenopathy or JVD. CHEST: Clear. CARDIAC: S1 and S2. Regular. ABDOMEN: Soft. EXTREMITIES: No edema. LABORATORY DATA: Sodium 142, potassium 3.4, chloride 110, CO2 of 21, BUN 23, creatinine 1.2, glucose 178. White blood cell count 13.7, hematocrit 36.3, and platelet count 305. PH of 7.44, pCO2 of 30, pO2 of 112. IMAGING STUDIES: Chest x-ray showed no acute infiltrates. ASSESSMENT: 1. Carbon dioxide exacerbation. 2. The patient is currently on rule out coronavirus disease status. 3. Acute respiratory failure requiring mechanical ventilation. PLAN: 1. The patient has been extubated. 2. We will redo the COVID test since we do not know when the one from the outside hospital will come back. Hopefully, this will facilitate being able to transfer her to the medical floor. 3. Continue antibiotics, steroids, and nebulization treatments. I will go ahead and switch her nebulizers to every 4 hours. Job ID: [id number]
[2019-10-02] MEDS: Clopidogrel Bisulfate 75 MG TAB PO SCH (09:37)
[2019-10-02] MEDS: Aspirin Chewable 81 MG TAB PO SCH (09:38)
[2019-10-02] MEDS: Enoxaparin Sodium 40 MG/0.4 ML SYRINGE SC SCH (09:38)
[2019-10-02] MEDS: Famotidine/PF 20 mg/2ml Vial SLOW IVP SCH ×2 (09:41→20:38)
--- NOTE | 2019-10-02 09:50 | RAD ---
CHEST 1 VIEW: INDICATION: History of pneumonia. COMPARISON: Prior exam dated 10/01/2019. FINDINGS/IMPRESSION: Stable mild cardiomegaly. Chronic lung changes are similar-appearing. ET tube and gastric catheter are unchanged. No pneumothorax is evident when compared to the prior dated 10/01/2019. POS: [facility]
[2019-10-02] MEDS ORDERED: Albuterol 200 PUFF (6.7GM INHALER) INH SCH (10:30)
[2019-10-02] MEDS ORDERED: Vancomycin 1 GM in Premix Bag 1 BAG IVPB SCH (13:00)
--- NOTE | 2019-10-02 17:22 | PDOC.HOSPP ---
- Subjective Encounter Date: 10/02/19 Subjective: Extubated. Not in any respiratory distress. - Objective Vital Signs & Weight: Vital Signs (12 hours) Temp Pulse Resp BP BP Pulse Ox 10/02/19 15:34 98.5 F 90 17 137/62 99 10/02/19 14:38 90 18 99 10/02/19 13:35 99.5 F 101 H 20 121/51 L 94 L 10/02/19 12:00 98.9 F 10/02/19 11:44 100 10/02/19 08:32 95 10/02/19 08:00 98.9 F 10/02/19 07:17 20 100 10/02/19 06:47 82 133/64 10/02/19 06:00 20 Weight Admit Weight 154 lb 12.232 oz Weight 153 lb 0.013 oz Most Recent Monitor Data Heart Rate from ECG 106 NIBP 114/53 NIBP BP-Mean 73 Respiration from ECG 23 SpO2 100 I&O: 10/01/19 10/02/19 10/03/19 06:59 06:59 06:59 Intake Total 374.2 950 Output Total 690 200 Balance -315.8 750 Result Diagrams: 10/02/19 03:34 10/02/19 03:34 Additional Labs: Accuchecks 10/02/19 10/02/19 10/02/19 15:40 12:12 04:08 POC Glucose 139 H 160 H 179 H 10/01/19 22:10 POC Glucose 161 H Hospitalist ROS - Medication Medications: Active Medications Generic Name Dose Route Start Last Admin Trade Name Freq PRN Reason Stop Dose Admin Albuterol/Ipratropium 3 ml 10/02/19 14:30 10/02/19 14:38 Duoneb NEB 3 ml [id number] [id number] Administration Aspirin 81 mg 10/02/19 09:00 10/02/19 09:38 Aspirin Chewable PO 81 mg DAILY YONG Administration Atorvastatin Calcium 80 mg 10/01/19 21:00 10/01/19 21:14 Lipitor PO 80 mg HS YONG Administration Clopidogrel Bisulfate 75 mg 10/02/19 09:00 10/02/19 09:37 Plavix PO 75 mg DAILY YONG Administration Enoxaparin Sodium 40 mg 10/02/19 09:00 10/02/19 09:38 Lovenox SC 40 mg 0900 YONG Administration Famotidine 20 mg 10/01/19 21:00 10/02/19 09:41 Pepcid SLOW IVP 20 mg BID YONG Administration Piperacillin Sod/Tazobactam 100 mls @ 200 mls/hr 10/01/19 18:00 10/02/19 11: 51 Sod 3.375 gm/ Sodium Chloride IVPB 100 mls Q6HR YONG Administration Vancomycin HCl 1 gm/ Device 200 mls @ 200 mls/hr 10/02/19 13:00 10/02/19 11: 52 IVPB 200 mls 1300 YONG Administration Insulin Human Regular 0 units 10/01/19 13:37 10/02/19 12:20 Humulin R SC 2 unit .MODERATE SLIDING SC PRN Administration Moderate Correctional Scale Methylprednisolone Sodium Succinate 40 mg 10/01/19 18:00 10/02/19 11:51 Solu-Medrol IVP 40 mg Q6HR YONG Administration Metoprolol Succinate 50 mg 10/02/19 09:00 10/02/19 09:37 Toprol Xl PO 50 mg QAM YONG Administration Propofol 1,000 mg 10/01/19 18:18 10/01/19 19:30 Diprivan IV 10/31/19 18:18 1,000 mg INF PRN Administration TO ACHIEVE GOAL RASS Protocol - Exam General Appearance: awake alert ENT: normocephalic atraumatic Neck: supple Heart: RRR Respiratory: normal chest expansion, no tachypnea Extremities: no cyanosis Neurological: cranial nerve grossly intact, no focal deficits Hosp A/P (1) Acute respiratory failure with hypoxia and hypercapnia Code(s): J96.01 - ACUTE RESPIRATORY FAILURE WITH HYPOXIA; J96.02 - ACUTE RESPIRATORY FAILURE WITH HYPERCAPNIA Status: Acute (2) COPD exacerbation Code(s): J44.1 - CHRONIC OBSTRUCTIVE PULMONARY DISEASE W (ACUTE) EXACERBATION Status: Acute (3) Type 2 AMI (acute myocardial infarction) Code(s): I21.A1 - MYOCARDIAL INFARCTION TYPE 2 Status: Acute (4) CKD (chronic kidney disease) stage 3, GFR 30-59 ml/min Status: Chronic (5) HTN (hypertension) Code(s): I10 - ESSENTIAL (PRIMARY) HYPERTENSION Status: Chronic Qualifiers: Hypertension type: essential hypertension Qualified Code(s): I10 - Essential (primary) hypertension - Plan Extubated. Clinically stable. Continue Nebulizer treatments, antibiotics and corticosteroids. COVID 19 DAPHNE test is negative.
[2019-10-02 17:36] LABS: SARS-CoV-2 MS2 Positive; SARS-CoV-2 N Gene Negative; SARS-CoV-2 S Gene Negative; SARS-CoV-2 orf1ab Negative
[2019-10-02] MEDS: Atorvastatin Calcium 40 MG TAB PO SCH (20:38)
[2019-10-03] MEDS: methylPREDNISolone Sod Succ 40 MG VIAL IVP SCH ×2 (00:32→05:55)
[2019-10-03] MEDS: Piperacillin/Tazobactam 3.375 GM in Sodium Chloride 0.9% 100 ML IVPB SCH ×2 (00:32→05:55)
[2019-10-03 06:09] LABS: Anion Gap 10 mmol/L (10-20); BUN (Urea Nitrogen) 26 mg/dL (9.8-20.1); Calc. Creatinine Clearance 47 mL/min (70-130); Calcium 8.2 mg/dL (7.8-10.44); Carbon Dioxide 26 mmol/L (23-31); Chloride 110 mmol/L (98-107); Estimated GFR-MDRD 46; Glucose 170 mg/dL (83-110); Potassium 3.9 mmol/L (3.5-5.1); Sodium 142 mmol/L (136-145)
[2019-10-03] MEDS: Famotidine/PF 20 mg/2ml Vial SLOW IVP SCH (07:58)
[2019-10-03] MEDS: Enoxaparin Sodium 40 MG/0.4 ML SYRINGE SC SCH (07:58)
[2019-10-03] MEDS: Clopidogrel Bisulfate 75 MG TAB PO SCH (07:59)
[2019-10-03] MEDS: Aspirin Chewable 81 MG TAB PO SCH (07:59)
[2019-10-03] MEDS ORDERED: DC Electrolyte Protocol FS ONE (08:39)
--- NOTE | 2019-10-03 10:41 | RAD ---
CHEST 1 VIEW: HISTORY: Followup pneumonia. FINDINGS: Heart size is within normal limits. Mild hyperinflation and chronic lung changes. Anterior cervical fusion changes. No confluent pneumonia, overt edema, or pleural effusion. IMPRESSION: Minimal hyperinflation and stable chronic changes. No acute intrathoracic disease. POS: [facility]
--- NOTE | 2019-10-03 10:43 | PRG ---
DATE OF SERVICE: 10/03/2019 SUBJECTIVE: The patient is doing well, then walking around the room. OBJECTIVE: VITAL SIGNS: Temperature 98.5, pulse 107, respirations 20, O2 sat 95% on 2 L, and blood pressure 141/53. HEENT: Unremarkable. NECK: No JVD. CHEST: Clear. CARDIAC: S1 and S2 regular. ABDOMEN: Soft. EXTREMITIES: No edema. LABORATORY DATA: White blood cell count 13.7, hematocrit 36, platelet count 305. Sodium 142, potassium 3.9, BUN 26, creatinine 1.1, glucose 170. ASSESSMENT: 1. Chronic obstructive pulmonary disease with exacerbation. 2. Status post respiratory failure requiring mechanical ventilation. PLAN: I believe she will be stable enough for discharge tomorrow. She is requesting mucolytic. I will go ahead and change her over to oral steroids. Job ID: [id number]
[2019-10-03] MEDS: guaiFENesin/DM ER PO PRN ×2 (10:51→22:03)
--- NOTE | 2019-10-03 17:02 | PDOC.HOSPP ---
- Subjective Encounter Date: 10/03/19 Encounter Time: 11:30 Subjective: Patient seen and examined for Resp failure. Dry cough. SOB improving. No new complaints. No overnight events - Objective Vital Signs & Weight: Vital Signs (12 hours) Temp Pulse Resp BP Pulse Ox 10/03/19 14:20 102 H 16 95 10/03/19 10:43 107 H 20 94 L 10/03/19 08:00 95 10/03/19 07:57 98.5 F 107 H 20 141/53 H 95 10/03/19 06:27 85 16 95 Weight Admit Weight 154 lb 12.232 oz Weight 153 lb 0.013 oz Most Recent Monitor Data Heart Rate from ECG 106 NIBP 114/53 NIBP BP-Mean 73 Respiration from ECG 23 SpO2 100 I&O: 10/02/19 10/03/19 10/04/19 06:59 06:59 06:59 Intake Total 374.2 1570 Output Total 690 200 Balance -315.8 1370 Result Diagrams: 10/02/19 03:34 10/03/19 05:29 Additional Labs: Accuchecks 10/03/19 10/02/19 04:55 19:47 POC Glucose 161 H 184 H Radiology Reviewed by me: Yes (CXR - reviewed) Hospitalist ROS - Review of Systems Respiratory: denies: cough, dry, shortness of breath, hemoptysis, SOB with excertion, pleuritic pain, sputum, wheezing, other Cardiovascular: denies: chest pain, palpitations, orthopnea, paroxysmal noc. dyspnea, edema, light headedness, other Gastrointestinal: denies: nausea, vomiting, abdominal pain, diarrhea, constipation, melena, hematochezia, other - Medication Medications: Active Medications Generic Name Dose Route Start Last Admin Trade Name Freq PRN Reason Stop Dose Admin Albuterol/Ipratropium 3 ml 10/02/19 14:30 10/03/19 14:20 Duoneb NEB 3 ml [id number] YONG Administration Aspirin 81 mg 10/02/19 09:00 10/03/19 07:59 Aspirin Chewable PO 81 mg DAILY YONG Administration Atorvastatin Calcium 80 mg 10/01/19 21:00 10/02/19 20:38 Lipitor PO 80 mg HS YONG Administration Clopidogrel Bisulfate 75 mg 10/02/19 09:00 10/03/19 07:59 Plavix PO 75 mg DAILY YONG Administration Enoxaparin Sodium 40 mg 10/02/19 09:00 10/03/19 07:58 Lovenox SC 40 mg 0900 YONG Administration Guaifenesin/Dextromethorphan 1 tab 10/03/19 10:37 10/03/19 10:51 Mucinex Dm PO 1 tab Q12HR PRN Administration cough Insulin Human Regular 0 units 10/01/19 13:37 10/02/19 12:20 Humulin R SC 2 unit .MODERATE SLIDING SC PRN Administration Moderate Correctional Scale Metoprolol Succinate 50 mg 10/02/19 09:00 10/03/19 07:58 Toprol Xl PO 50 mg QAM YONG Administration Propofol 1,000 mg 10/01/19 18:18 10/01/19 19:30 Diprivan IV 10/31/19 18:18 1,000 mg INF PRN Administration TO ACHIEVE GOAL RASS Protocol - Exam General Appearance: NAD Neck: supple, no JVD Heart: RRR, no gallops Respiratory: no wheezes, no ronchi Gastrointestinal: non-tender, normal bowel sounds Extremities: no cyanosis, no clubbing Neurological: no new deficit Hosp A/P - Plan DVT proph w/lovenox, DVT proph w/SCDs Acute on chronic respiratory failure with hypoxia and hypercapnia s/p Mech Ventilation COPD exacerbation SIRS due to above HTN CAD CKD 3 Chronic Anemia due to nutritional def PLAN: Cont supportive care COVID negative Cont Nebs Steroids changed to PO Atbx changed to PO Add Mucinex Add O2 humidification
[2019-10-03] MEDS: Famotidine 20 MG TAB PO SCH (20:58)
[2019-10-03] MEDS: Atorvastatin Calcium 40 MG TAB PO SCH (20:58)
[2019-10-04 06:42] LABS: #Eosinphils 0.1 thou/uL (0.0-0.7); #Lymphocytes 2.8 thou/uL (1.20-3.40); #Monocytes 0.8 thou/uL (0.11-0.59); #Neutrophils 9.6 thou/uL (1.40-6.50); %Basophils 0.1 % (0.0-1.0); %Eosinophils 0.5 % (0.0-10.0); %Lymphocytes 21.2 % (21.0-51.0); %Monocytes 5.7 % (0.0-10.0); %Neutrophils 72.5 % (42.0-75.0); Hemoglobin 11.3 g/dL (12.0-16.0); Mean Corpuscular HGB CONC 31.3 g/dL (32.0-36.0); Mean Corpuscular Volume 92.5 fL (78.0-98.0); Mean Platelet Volume 8.2 fL (7.4-10.4); Platelet Count 273 thou/uL (130-400); Red Blood Cell (RBC) Count 3.89 mill/uL (4.20-5.40); White Blood Cell (WBC) Count 13.2 thou/uL (4.8-10.8)
[2019-10-04 07:04] LABS: Anion Gap 10 mmol/L (10-20); BUN (Urea Nitrogen) 19 mg/dL (9.8-20.1); Calc. Creatinine Clearance 57 mL/min (70-130); Calcium 7.8 mg/dL (7.8-10.44); Carbon Dioxide 23 mmol/L (23-31); Chloride 114 mmol/L (98-107); Estimated GFR-MDRD 59; Glucose 93 mg/dL (83-110); Magnesium 2.2 mg/dL (1.6-2.6); Potassium 3.4 mmol/L (3.5-5.1); Sodium 144 mmol/L (136-145)
[2019-10-04] MEDS ORDERED: Potassium Chloride 10 MEQ TAB PO SCH (08:00)
[2019-10-04] MEDS ORDERED: Calcium Carbonate 600 MG + Vit D TAB PO SCH (08:00)
[2019-10-04] MEDS: Famotidine 20 MG TAB PO SCH (08:26)
[2019-10-04] MEDS: guaiFENesin/DM ER PO PRN (08:26)
[2019-10-04] MEDS: Aspirin Chewable 81 MG TAB PO SCH (08:27)
[2019-10-04] MEDS: Clopidogrel Bisulfate 75 MG TAB PO SCH (08:28)
[2019-10-04] MEDS: Enoxaparin Sodium 40 MG/0.4 ML SYRINGE SC SCH (08:29)
[2019-10-04] MEDS ORDERED: Multivit, Therapeutic 1 TAB PO SCH (09:00)
[2019-10-04] MEDS ORDERED: predniSONE 20 MG TAB PO SCH (09:00)
[2019-10-04] MEDS ORDERED: Cefdinir 300 MG CAP PO SCH (09:00)
--- NOTE | 2019-10-04 11:51 | PRG ---
DATE OF SERVICE: 10/04/2019 SUBJECTIVE: The patient is doing well and wants to go home. OBJECTIVE: VITAL SIGNS: Temperature 98.3, pulse 89, respirations 16, O2 saturation 95% on 2 L, blood pressure 150/74. HEENT: Unremarkable. NECK: No adenopathy or JVD. LUNGS: Clear anteriorly. CARDIAC: S1, S2. Regular. ABDOMEN: Soft. EXTREMITIES: No edema. LABORATORY DATA: White blood cell count 13.2, hematocrit 36, and platelet count 273. Sodium 144, potassium 3.4, BUN 19, creatinine 0.9, glucose 93. ASSESSMENT: 1. Status post chronic obstructive pulmonary disease with exacerbation, requiring mechanical ventilation. 2. Excess secretions. PLAN: This patient is medically stable for discharge to home. I will see if respiratory therapy can get her flutter valve. I would taper her steroids over about 2 weeks and continue antibiotics for about seven total days. She has oxygen set up at home. Job ID: [id number]
[2019-10-04 13:34] VITALS: TEMP 98.4
[2019-10-04 13:35] VITALS: BP 140/72
--- NOTE | 2019-10-04 14:02 | DIS ---
DATE OF ADMISSION: 10/01/2019 DATE OF DISCHARGE: 10/04/2019 DISCHARGE DISPOSITION: Home. FOLLOWUP: 1. Follow up with primary care physician, Dr. Weston, in 1 week. 2. Follow up with Dr. Ever Rudolph in 3 to 4 weeks. ALLERGIES: THE PATIENT IS ALLERGIC TO CODEINE, TRAMADOL, AND ERYTHROMYCIN. DISCHARGE MEDICATIONS: 1. Prednisone taper. 2. Omnicef 600 mg daily for next 5 days. All other home medications were left unchanged. HISTORY: The patient was seen and examined on the day of discharge. Denies any new complaints. No chest pain, shortness of breath reported. Symptomatically, she feels much better. Her vital signs on the day of discharge show temperature 98.3 with pulse rate of 83, respirations of 16, and blood pressure in 150s with O2 saturation of 95% on 2 L nasal cannula. BRIEF HOSPITAL COURSE: The patient is a 74-year-old female with COPD, presented to the emergency room with significant shortness of breath. Her O2 saturations were 74% on home O2. She was placed on nonrebreather. Her pulse rate was in 140s. She was subsequently intubated. She was monitored in the ICU. Later on after extubation, she was transferred to the medical floor. Symptomatically, she has felt much better. ABGs on admission showed pH of 7.24 with pCO2 of 56.6 with pO2 of 94.5 after intubation. COVID testing was negative. WBC count on admission was 29.4 and discharge is 13.2. The patient has been cleared by Pulmonary for discharge. Her blood culture remain negative. Influenza screen was negative. Please follow up on the final blood cultures. FINAL DIAGNOSES: 1. Acute on chronic respiratory failure with hypoxia and hypercapnia secondary to chronic obstructive pulmonary disease exacerbation. 2. Hypokalemia, replaced. 3. Systemic inflammatory response syndrome secondary to above, present on admission. 4. Hypertension. 5. Coronary artery disease. 6. Chronic anemia, suspected due to nutritional deficiency. 7. Respiratory acidosis secondary to above. 8. Acute kidney injury on chronic kidney disease, stage 3, present on admission. Job ID: [id number]
== END 2019-10-04 13:36 | disposition home or self-care (01) | DRG 208 ==
LOC: ERS 11:36 → CCU 16:35 → T4-B 10-02 13:30
PROVIDERS: ADMIT Internal Medicine; ATTEND Internal Medicine
PROC: 5A1945Z Respiratory Ventilation, 24-96 Consecutive Hours (ICD-10-PCS; principal; 2019-10-01)
DX: J44.1 Chronic obstructive pulmonary disease with (acute) exacerbation (principal); J96.21 Acute and chronic respiratory failure with hypoxia; I21.A1 Myocardial infarction type 2; J96.22 Acute and chronic respiratory failure with hypercapnia; I13.0 Hypertensive heart and chronic kidney disease with heart failure and stage 1 through stage 4 chronic kidney disease, or unspecified chronic kidney disease; N17.9 Acute kidney failure, unspecified; R65.10 Systemic inflammatory response syndrome (SIRS) of non-infectious origin without acute organ dysfunction; I50.9 Heart failure, unspecified; Z20.828 Contact with and (suspected) exposure to other viral communicable diseases; I25.10 Atherosclerotic heart disease of native coronary artery without angina pectoris; N18.3 Chronic kidney disease, stage 3 (moderate); E78.5 Hyperlipidemia, unspecified; E87.6 Hypokalemia; D53.9 Nutritional anemia, unspecified; Z79.01 Long term (current) use of anticoagulants; Z79.899 Other long term (current) drug therapy; Z79.51 Long term (current) use of inhaled steroids; Z88.5 Allergy status to narcotic agent; Z88.1 Allergy status to other antibiotic agents; Z99.81 Dependence on supplemental oxygen; Z87.891 Personal history of nicotine dependence
CPT/HCPCS: 36415; 36416; 71045; 80048; 81003; 81015; 82805; 83735; 85007; 85025; 85027; 87635; 94002; 94003; 94640; J0696; J1650; J1815; J2543; J2704; J2920; J3010; J3370; J3490; J7512; J7620; S0028; U0003

== ENCOUNTER 2019-11-03 23:24 | Inpatient (IN) | payer MEDICARE, MEDICAID, OTHER ==
[2019-11-04] MEDS ORDERED: Ondansetron ODT 4 MG TAB PO PRN (01:28)
[2019-11-04] MEDS ORDERED: Ondansetron PF 4 MG/2 ML Vial IVP PRN (01:28)
[2019-11-04] MEDS ORDERED: Acetaminophen 650 MG Suppository PR PRN (01:28)
[2019-11-04] MEDS ORDERED: Acetaminophen 325 MG TAB PO PRN (01:28)
[2019-11-04] MEDS ORDERED: Guaifenesin DM 100-10/5 ML UDCUP PO PRN (01:28)
[2019-11-04] MEDS ORDERED: HYDROcodone/Acetaminophen 5/325 mg Tablet PO PRN (01:28)
[2019-11-04 01:30] LABS: CKMB 2.4 ng/mL (0-6.6)
[2019-11-04] MEDS ORDERED: Albuterol 200 PUFF (6.7GM INHALER) INH PRN (01:34)
--- NOTE | 2019-11-04 01:40 | PDOC.HHP ---
Hospitalist HPI - History of Present Illness sob History of Present Illness: Case of an 74-year-old female with pmhx of copd htn chf cad and hyperlipidemia who comes to hospital due to sob and cough. patient refers she was on her usual state of health until today when she started with dyspnea and cought which was productive w clear sputum. patient states she took her home meds and some nebulizers w/o resolution of her symptoms for which she decided to come to hospital for evaluation. at ED pt was found to be febrile 101 and was transfer here for further evaluation and management. patient states she had a recent hospitalization 1m/a for similar symptoms which required ETT. patient has been tested 2-3 last month for covid, came back negative. patient denies chills general malaise dysuria or diarrhea. Patient also denies any chest pain, lower extremity pain, abdominal pain. Hospitalist ROS - Review of Systems All other systems reviewed; all pertinent +/- noted in HPI/Subj Hospitalist History - Past Medical History Source: patient Cardiac: reports: CAD, CHF, HTN, Hyperlipidemia Pulmonary: reports: COPD - Past Surgical History Other Surgical History: back surgery carpal tunnel b/l - Family History Family History: reports: cancer, cardiac disorder, hypertension - Social History Smoking Status: Former smoker Alcohol: reports: None Drugs: reports: none Activity level: independent ambulation - Exam General Appearance: awake alert Eye: PERRL, anicteric sclera ENT: normocephalic atraumatic, no oropharyngeal lesions Neck: supple, symmetric, no JVD, no thyromegaly Heart: RRR, no murmur, no gallops, no rubs Respiratory: wheezes Respiratory - other findings: decreased breath sound b/l Gastrointestinal: soft, non-tender, non-distended Extremities: no cyanosis, no clubbing, no edema Skin: normal turgor, no lesions, no rashes Neurological: cranial nerve grossly intact, normal sensation to touch Musculoskeletal: normal tone, normal strength, no muscle wasting Psychiatric: normal affect, normal behavior, A&O x 3, oriented to person Hospitalist Results - Labs Result Diagrams: 11/04/19 02:04 11/04/19 02:04 Lab results: CK-MB (CK-2) 2.4 ng/mL (0-6.6) 11/04/19 00:39 Troponin I 0.042 ng/mL (< 0.028) H 11/04/19 00:39 - Radiology Interpretation CT scan - chest Status: report reviewed by me (negative for pe) Chest x-ray Status: image reviewed by me (no effusion consolidation or infiltrates) Hospitalist H&P A/P - Problem (1) COPD exacerbation Code(s): J44.1 - CHRONIC OBSTRUCTIVE PULMONARY DISEASE W (ACUTE) EXACERBATION Status: Acute (2) Hypokalemia Code(s): E87.6 - HYPOKALEMIA Status: Acute (3) CAD (coronary artery disease) Code(s): I25.10 - ATHSCL HEART DISEASE OF CREEK CORONARY ARTERY W/O ANG PCTRS Status: Chronic (4) CKD (chronic kidney disease) stage 3, GFR 30-59 ml/min Status: Chronic (5) HTN (hypertension) Code(s): I10 - ESSENTIAL (PRIMARY) HYPERTENSION Status: Chronic Qualifiers: Hypertension type: essential hypertension Qualified Code(s): I10 - Essential (primary) hypertension (6) COVID-19 Code(s): U07.1 - COVID-19 Status: Acute - Plan Plan: 74 y/o female with the states pmhx who presents with increasing dyspnea cough and sputum production, w a recent hospitalization requiring ETT - 02 supplementation o2 sat goal of 88-92% - started on cefe and vancomycin due to recent hops 1 m/a. mrsa screening sent, de escalate therapy as needed - covid r/o - isolation precautions started - dexamethasone 10mg iv daily - continue home meds for chronic conditions - dvt prophylaxis
[2019-11-04 02:13] LABS: #Lymphocytes 0.9 thou/uL (1.20-3.40); #Neutrophils 7.6 thou/uL (1.40-6.50); %Basophils 0.4 % (0.0-1.0); %Eosinophils 0.6 % (0.0-10.0); %Lymphocytes 10.1 % (21.0-51.0); %Monocytes 0.5 % (0.0-10.0); %Neutrophils 88.5 % (42.0-75.0); Hemoglobin 11.7 g/dL (12.0-16.0); Mean Corpuscular HGB CONC 33.4 g/dL (32.0-36.0); Mean Corpuscular Hemoglobin 29.2 pg (27.0-31.0); Mean Corpuscular Volume 87.6 fL (78.0-98.0); Platelet Count 301 thou/uL (130-400); RBC Distribution Width 12.7 % (11.5-14.5); Red Blood Cell (RBC) Count 4.01 mill/uL (4.20-5.40); White Blood Cell (WBC) Count 8.6 thou/uL (4.8-10.8)
[2019-11-04] MEDS: Sodium Chloride 0.9% 1,000 ML IV SCH ×2 (02:14→13:08)
[2019-11-04 02:34] LABS: ALT (SGPT) 15 U/L (8-55); AST (SGOT) 16 U/L (5-34); Albumin 4.4 g/dL (3.4-4.8); Alkaline Phosphatase 136 U/L (40-110); Anion Gap 14 mmol/L (10-20); BUN (Urea Nitrogen) 10 mg/dL (9.8-20.1); Bilirubin, Total 0.2 mg/dL (0.2-1.2); Calc. Creatinine Clearance 0 mL/min (70-130); Calcium 8.7 mg/dL (7.8-10.44); Carbon Dioxide 24 mmol/L (23-31); Chloride 109 mmol/L (98-107); Estimated GFR-MDRD 57; Globulin 2.6 g/dL (2.4-3.5); Glucose 178 mg/dL (83-110); Sodium 143 mmol/L (136-145)
[2019-11-04 02:41] VITALS: BMI 28.3
[2019-11-04] MEDS ORDERED: Sodium Chloride 0.9% 1,000 ML IV SCH (03:30)
[2019-11-04 04:15] LABS: Band 10 % (5-11); Hemoglobin 11.1 g/dL (12.0-16.0); Lymphocytes 12 % (21-51); MDiff Complete? YES; Mean Corpuscular HGB CONC 31.9 g/dL (32.0-36.0); Mean Corpuscular Hemoglobin 27.9 pg (27.0-31.0); Mean Corpuscular Volume 87.4 fL (78.0-98.0); Mean Platelet Volume 7.8 fL (7.4-10.4); Monocytes 1 % (0-10); Neutrophil 77 % (42-75); Platelet Count 300 thou/uL (130-400); Platelet Morphology Comment Appears Adequate; RBC Distribution Width 12.7 % (11.5-14.5); Red Blood Cell (RBC) Count 3.99 mill/uL (4.20-5.40)
[2019-11-04 04:26] LABS: ALT (SGPT) 14 U/L (8-55); AST (SGOT) 14 U/L (5-34); Alkaline Phosphatase 125 U/L (40-110); Anion Gap 12 mmol/L (10-20); BUN (Urea Nitrogen) 11 mg/dL (9.8-20.1); Bilirubin, Total 0.3 mg/dL (0.2-1.2); Calc. Creatinine Clearance 65 mL/min (70-130); Calcium 8.5 mg/dL (7.8-10.44); Carbon Dioxide 24 mmol/L (23-31); Chloride 110 mmol/L (98-107); Estimated GFR-MDRD 64; Globulin 2.4 g/dL (2.4-3.5); Glucose 190 mg/dL (83-110); Magnesium 1.9 mg/dL (1.6-2.6); Potassium 4.1 mmol/L (3.5-5.1); Protein, Total 6.4 g/dL (6.0-8.3); Sodium 142 mmol/L (136-145)
[2019-11-04 04:30] LABS: Troponin I 0.024 ng/mL (< 0.028)
[2019-11-04] MEDS: Cefepime 2 GM in Sodium Chloride 0.9% 100 ML IVPB SCH ×2 (05:23→13:19)
[2019-11-04 07:20] LABS: Troponin I 0.021 ng/mL (< 0.028)
[2019-11-04] MEDS ORDERED: Loratadine 10 MG TAB PO PRN (08:25)
[2019-11-04] MEDS ORDERED: Benzonatate 100 MG CAP PO PRN (08:25)
[2019-11-04] MEDS: Ezetimibe 10 MG TAB PO SCH (08:48)
[2019-11-04] MEDS: Furosemide 20 MG TAB PO SCH (08:48)
[2019-11-04] MEDS: Aspirin Chewable 81 MG TAB PO SCH (08:49)
[2019-11-04] MEDS: Clopidogrel Bisulfate 75 MG TAB PO SCH (08:49)
[2019-11-04] MEDS: Atorvastatin Calcium 40 MG TAB PO SCH (08:49)
[2019-11-04] MEDS: Losartan 25 MG TAB PO SCH (08:49)
[2019-11-04] MEDS: Enoxaparin Sodium 40 MG/0.4 ML SYRINGE SC SCH ×2 (08:50→11:07)
[2019-11-04] MEDS ORDERED: Dexamethasone 10 MG/ML VIAL SLOW IVP SCH (09:00)
[2019-11-04] MEDS ORDERED: Vancomycin 1.5 GRAM/300 ML BAG 1.5 GM in Premix Bag 1 BAG IVPB SCH (09:00)
[2019-11-04] MEDS: Potassium Chloride 10 MEQ TAB PO SCH (11:07)
[2019-11-04] MEDS: Multivit, Therapeutic 1 TAB PO SCH (11:07)
[2019-11-04] MEDS: guaiFENesin ER 600 MG TAB PO SCH ×2 (11:07→20:14)
[2019-11-04 12:28] LABS: SARS-CoV-2 MS2 Positive; SARS-CoV-2 N Gene Negative; SARS-CoV-2 S Gene Negative; SARS-CoV-2 orf1ab Negative
--- NOTE | 2019-11-04 15:56 | PDOC.EVN ---
Event Note - Event Note Event Note: Patient is doing well. Walking around the room without oxygen. Says she needs to go back on it after a little exertion. Does not feel that her exacerbation this time is as bad as before. Lungs are course. Will DC the Vanc/Cefepime and start Omnicef. D/C the IV dexamethasone and start po Prednisone. Start PPI. Resume nebs now that she is Covid negative. She follows with Dr. Rudolph. Messaged him to let him know she is here.
[2019-11-04] MEDS ORDERED: predniSONE 20 MG TAB PO SCH (16:00)
[2019-11-04] MEDS: Calcium Carbonate 600 MG + Vit D TAB PO SCH (16:59)
[2019-11-04] MEDS: Cefdinir 300 MG CAP PO SCH (20:14)
[2019-11-04] MEDS: FORMOTEROL FUMARATE NEB SCH (20:15)
[2019-11-04] MEDS ORDERED: Prevnar 13-Val Conj/PF 0.5 ML SYRINGE IM ONE (21:00)
[2019-11-05] MEDS: FORMOTEROL FUMARATE NEB SCH ×2 (05:36→11:15)
[2019-11-05] MEDS: Roflumilast [Daliresp] 500 MCG PO SCH ×2 (05:37→09:05)
[2019-11-05 07:53] VITALS: BP 131/63; TEMP 98.6
[2019-11-05] MEDS ORDERED: predniSONE 20 MG TAB PO SCH (08:00)
[2019-11-05 08:10] LABS: Vancomycin, Trough 11.4 ug/mL
[2019-11-05] MEDS: Aspirin Chewable 81 MG TAB PO SCH (09:04)
[2019-11-05] MEDS: Furosemide 20 MG TAB PO SCH (09:04)
[2019-11-05] MEDS: Cefdinir 300 MG CAP PO SCH (09:04)
[2019-11-05] MEDS: Atorvastatin Calcium 40 MG TAB PO SCH (09:04)
[2019-11-05] MEDS: Potassium Chloride 10 MEQ TAB PO SCH (09:04)
[2019-11-05] MEDS: Calcium Carbonate 600 MG + Vit D TAB PO SCH (09:05)
[2019-11-05] MEDS: Ezetimibe 10 MG TAB PO SCH (09:05)
[2019-11-05] MEDS: Multivit, Therapeutic 1 TAB PO SCH (09:06)
[2019-11-05] MEDS: Enoxaparin Sodium 40 MG/0.4 ML SYRINGE SC SCH (09:06)
[2019-11-05] MEDS: Clopidogrel Bisulfate 75 MG TAB PO SCH (09:06)
[2019-11-05] MEDS: guaiFENesin ER 600 MG TAB PO SCH (09:06)
[2019-11-05] MEDS: Losartan 25 MG TAB PO SCH (09:06)
[2019-11-05] MEDS ORDERED: Arformoterol 15 MCG/2 ML NEB NEB SCH (18:30)
--- NOTE | 2019-11-06 11:50 | DIS ---
DATE OF ADMISSION: 11/04/2019 DATE OF DISCHARGE: 11/05/2019 DISCHARGE DIAGNOSES: 1. Chronic obstructive pulmonary disease exacerbation. 2. Acute on chronic hypoxic respiratory failure. 3. Hypokalemia, resolved. 4. History of coronary artery disease. 5. Chronic kidney disease stage 3. 6. Hypertension. HISTORY OF PRESENT ILLNESS: The patient is a 74-year-old female with a history of significant COPD, hypertension, coronary disease, congestive heart failure, and hyperlipidemia, who presented with shortness of breath and cough. She has had negative chest x-ray and labs were generally unremarkable. HOSPITAL COURSE: The patient was placed in the hospital, slightly increased oxygen. She was isolated, ruled out for COVID-19 which was ultimately negative. Initially given some dexamethasone, switched to p.o. prednisone. She was covered empirically with antibiotics for severe COPD exacerbation, though she was quickly better and able to transition over to oral Omnicef and her lung exam actually improved quite well. She felt back to her baseline and ready for discharge. DISCHARGE EXAMINATION: VITAL SIGNS: On the day of discharge, temperature 98.6, pulse 99, respirations 20, O2 saturation 97% on 2 L, BP 131/63. General: She is awake and alert. HEART: Regular. LUNGS: Diminished, but very clear. ABDOMEN: Benign. EXTREMITIES: No edema. DISPOSITION: The patient is discharged home. She will continue on her home oxygen at her baseline. ACTIVITY: As tolerated. DIET: Heart healthy diet. MEDICATIONS: 1. Omnicef 300 b.i.d. 2. Prednisone 40 mg daily. She will continue with: 1. Daliresp. 2. Potassium. 3. ProAir HFA. 4. DuoNeb. 5. Aspirin. 6. Atorvastatin. 7. Zetia. 8. Lasix. 9. Anoro Ellipta. 10. Flexeril. 11. Plavix. 12. Mucinex. 13. Claritin. 14. Pepcid AC. 15. Cozaar. 16. Perforomist. 17. Toprol. 18. Tessalon. 19. Caltrate D. 20. Theragran. 21. Mucinex. FOLLOWUP: She will follow up with Dr. Juan Weston next available and she can return to the hospital at anytime should she have the need to do so. TOTAL TIME: Total time spent in discharge activities was greater than 30 minutes. Job ID: [id number]
--- NOTE | 2019-11-24 16:11 | PQF ---
CLINICAL DOCUMENTATION CLARIFICATION FORM: Dear Dr. Brandon Cochran Date: 11-24-19 Please exercise your independent, professional judgment in responding to the clarification form. Clinical indicators are provided on the bottom of this form for your review. Please check appropriate box(es) to clarify if the following diagnosis has been ruled in our ruled out: SEPSIS [ ] Ruled in diagnosis of SEPSIS WITH PNEUMONIA [ ] Ruled out diagnosis of SEPSIS WITH PNEUMONIA [ ] Cannot rule out SEPSIS AND PNEUMONIA [ ] Pneumonia without Sepsis [x ] Other diagnosis COPD exacerbation [ ] Unable to determine For continuity of documentation, please document condition throughout progress notes and discharge summary. Thank You. To be completed by CDI/Coding staff for physician review: CLINICAL INDICATORS - SIGNS / SYMPTOMS / LABS / RESULTS AND LOCATION IN ED: XFER from [place], SOB, COPD Exac, Sepsis; PNA; COVID r/o BP 173/110; 171/80; 166/102 P 103-120 RR 21-24 T 98.8 oral 6-30 WBC 8.6 AND 7.0 6-30 H&P ([facility]): COPD Exacerbation; COVID-19 6-30 Event Note ([facility]): COVID negative 7-2 DC Summary ([facility]): COPD EXAC / Acute on Chronic Resp Failure Ruled out for COVID RISK FACTORS / RESULTS AND LOCATION IN MR 6-30 H&P ([facility]): PMH of CAD; CHF; HTN; COPD TREATMENTS / RESULTS AND LOCATION IN MR 6-30 [facility] R/O ISOLATION PRECAUTIONS STARTED Dexamethasone 10 mg IV daily Cefe and Vancomycin d/t recent hosp 1 m/a MRSA screening sent 11-03 Event Note ([facility]): DC Vanc/Cefepime and start Omnicef. DC IV dexamethasone and start PO Prednisone. Resume nebs. CDS Signature: Michelle Harden RN,CCDS Phone #: [phone] Date: 11-24-19 This is a permanent part of the Medical Record [facility]
== END 2019-11-05 15:45 | disposition home or self-care (01) | DRG 190 ==
LOC: ERS 23:24 → T4-A 11-04 00:50
PROVIDERS: ADMIT Internal Medicine; ATTEND Internal Medicine
PROC: 8E0ZXY6 Isolation (ICD-10-PCS; principal; 2019-11-04)
DX: J44.1 Chronic obstructive pulmonary disease with (acute) exacerbation (principal); J96.21 Acute and chronic respiratory failure with hypoxia; I13.0 Hypertensive heart and chronic kidney disease with heart failure and stage 1 through stage 4 chronic kidney disease, or unspecified chronic kidney disease; I50.9 Heart failure, unspecified; Z20.828 Contact with and (suspected) exposure to other viral communicable diseases; I25.10 Atherosclerotic heart disease of native coronary artery without angina pectoris; N18.3 Chronic kidney disease, stage 3 (moderate); E87.6 Hypokalemia; E78.5 Hyperlipidemia, unspecified; Z87.891 Personal history of nicotine dependence
CPT/HCPCS: 36415; 80053; 80202; 82553; 83605; 83735; 84145; 84484; 85025; 87081; 87635; 99285; J0692; J1100; J1650; J3370; J3490; J7512; U0003

== ENCOUNTER 2020-11-06 13:09 | Emergency (ER) | payer MEDICARE, MEDICAID | END 2020-11-06 15:25 | disposition home or self-care (01) | LOC: ERS 13:09 | DX: S09.90XA Unspecified injury of head, initial encounter (principal); S16.1XXA Strain of muscle, fascia and tendon at neck level, initial encounter; S50.01XA Contusion of right elbow, initial encounter; S50.811A Abrasion of right forearm, initial encounter; I11.0 Hypertensive heart disease with heart failure; I50.9 Heart failure, unspecified; J44.9 Chronic obstructive pulmonary disease, unspecified; E78.5 Hyperlipidemia, unspecified; Z87.891 Personal history of nicotine dependence; Z79.899 Other long term (current) drug therapy; Z79.82 Long term (current) use of aspirin; W18.30XA Fall on same level, unspecified, initial encounter | CPT/HCPCS: 70450; 72125 ==

== ENCOUNTER 2023-02-20 12:24 | Outpatient (CLI) | payer MEDICARE, MEDICAID | END 2023-02-20 12:25 | disposition home or self-care (01) | LOC: BICMAMMO 12:24 | PROVIDERS: ATTEND Family Medicine | DX: Z12.31 Encounter for screening mammogram for malignant neoplasm of breast (principal); Z91.89 Other specified personal risk factors, not elsewhere classified; Z80.3 Family history of malignant neoplasm of breast | CPT/HCPCS: 77063; 77067 ==